=== PATIENT | female | born 1955 | race Caucasian/White ===

== ENCOUNTER → 2018-03-30 08:10 | Outpatient (CLI) | payer OTHER, SELFPAY ==
[2018-03-30 12:21] LABS: Absolute Neutrophil Count 1.9 X10^3/uL (2.0-7.7); Basophil# 0.05 X10^3/uL; Basophil% 1.1 % (0-1); Eosinophil# 0.37 X10^3/uL; Eosinophils% 8.3 % (0-5); Hematocrit 42.8 % (37-47); Hemoglobin 14.2 g/dl (12.0-15.0); Mean Corp Hgb Conc 33.2 g/gl (32-36); Mean Corpuscular Hgb 30.9 pg (27.0-32.0); Mean Corpuscular Volume 93.2 fL (81-99); Mean Platelet Vol. 10.3 fl (6.2-12.0); Monocyte# 0.49 X10^3/uL; Neutrophil # 1.85 X10^3/uL (2.7-7.7); Neutrophil % 41.4 % (47-70); Platelet Count 201 K/mm3 (150-450); RBC Distribution Width CV 12.8 % (11.6-14.6); Red Blood Count 4.59 M/mm3 (4.2-5.4); White Blood Count 4.5 K/mm3 (4.4-11.0)
[2018-03-30 12:22] LABS: POSITIVE COUNT NO; POSITIVE DIFFERENTIAL NO; POSITIVE MORPHOLOGY NO
[2018-03-30 12:47] LABS: Hemoglobin A1c 6.1 % (4.2-6.3)
[2018-03-30 13:07] LABS: ALB/GLOB Ratio 1.2 RATIO (0.9-2.4); AST(SGOT) 19 U/L (15-37); Alanine Aminotransfer ALT/SGPT 22 U/L (13-56); Albumin, Serum 3.9 g/dL (3.2-5.0); Alkaline Phosphatase 70 U/L (45-117); Anion Gap 8 (5-15); BUN 12 mg/dL (7-18); BUN/Creat Ratio 17.9 RATIO (10-20); Calcium,Total 8.8 mg/dL (8.5-10.1); Chloride 103 mmol/L (98-107); Cholesterol 187 mg/dL (200); Creatinine, Serum 0.67 mg/dL (0.55-1.02); EST Glomerular Filtration Rate 95 mL/min (>60); Est Glom Filt Rate - Afr Amer 114 mL/min (>60); Globulin 3.3 g/dL (2.2-4.2); Glucose 105 mg/dL (74-106); High Density Lipoprotein 62 mg/dL; Potassium 4.3 mmol/L (3.5-5.1); Protein, Total 7.2 g/dL (6.4-8.2); Sodium Level 137 mmol/L (136-145); Thyroid Stim Hormone (TSH) 1.55 uIU/mL (0.358-3.74); Triglycerides 116 mg/dL; Very Low Density Lipoprotein 23 mg/dL (5-40)
[2018-03-30 13:28] LABS: Microalbumin,Random Urine 5.3 mg/L (NO RANGE EST.); Microalbumin:Creatinine Ratio 11.1 mg/g CRE (<30 mg/g CRE)
== END ==
PROVIDERS: Family Provider Family Medicine; PCP Family Medicine; Visit Provider Family Medicine
DX: E11.9 Type 2 diabetes mellitus without complications (principal); I10 Essential (primary) hypertension; E87.6 Hypokalemia; R53.83 Other fatigue
CPT/HCPCS: 36415; 80053; 80061; 82043; 82570; 83036; 84443; 85025

== ENCOUNTER → 2019-01-11 11:45 | Outpatient (CLI) | payer OTHER, SELFPAY ==
[2017-11-17 14:00] VITALS: BMI 28.3
--- NOTE | 2019-01-11 11:52 | RAD_ITS ---
STUDY: X-RAY - RIGHT KNEE REASON FOR EXAM: Female, 63 years old. Right lateral knee pain. TECHNIQUE: 4 view(s) of the knee. COMPARISON: None. FINDINGS: Normal visualized distal femur. Normal visualized proximal tibia and fibula. Normal proximal tibiofibular articulation. There is no demonstrated fracture. There is moderate degenerative arthrosis of the medial femorotibial compartment with moderate joint space narrowing. There is severe degenerative arthrosis of the lateral femorotibial compartment with severe joint space narrowing. There is moderate degenerative arthrosis of the patellofemoral articulation. There is no demonstrated joint effusion. The soft tissue structures are unremarkable. RAD/Knee 4 or More Views IMPRESSION: Degenerative arthrosis. Electronically Signed: Ovidio Can MD at 9:16 EDT Tel , Service support ,
== END ==
PROVIDERS: Family Provider Family Medicine; PCP Family Medicine; Referring Provider Family Medicine; Visit Provider Family Medicine
DX: M17.11 Unilateral primary osteoarthritis, right knee (principal)
CPT/HCPCS: 73564

== ENCOUNTER → 2019-02-09 | Outpatient (CLI) | payer OTHER, SELFPAY ==
[2017-11-17 14:00] VITALS: BMI 28.3
--- NOTE | 2019-02-09 08:08 | BI_ITS ---
MAMMOGRAPHY - BILATERAL SCREENING REASON FOR EXAM: Female, 63 years old. Routine annual screening examination. PERTINENT HISTORY: Mother with breast cancer. TECHNIQUE: Digital bilateral breast kelsey (3D mammographic acquisition) in the CC and MLO projections. 2-D mediolateral oblique (MLO) and craniocaudad (CC) views of both breasts were obtained. CAD: Full Field Digital Mammography with Computer Added Detection was performed. COMPARISON: Comparison is made with prior study of September 14, 2017 and August 14, 2016. FINDINGS: Breast Composition: There are scattered areas of fibroglandular density. There are no dominant masses or suspicious calcifications. No other significant abnormalities are identified. There has been no significant change since the prior study. BI/SCREEN MAMM (CAD) W/KELSEY BILAT IMPRESSION: Stable bilateral screening mammogram. Yearly follow-up mammogram recommended. (A) ASSESSMENT CATEGORY: BIRADS Category 1: Negative. A letter regarding these results will be sent to the patient by the facility within 30 days. Approximately 10% of breast cancers are not detected by mammography. A normal mammogram should not delay biopsy of a clinically suspicious abnormality. [id number] Electronically Signed: Shahriar Dutta, at 9:37 EDT , Service support ,
== END | disposition home or self-care (01) ==
LOC: OPBI 08:07
PROVIDERS: Family Provider Family Medicine; PCP Family Medicine; Referring Provider Nurse Practitioner Women's Health; Visit Provider Nurse Practitioner Women's Health
DX: Z12.31 Encounter for screening mammogram for malignant neoplasm of breast (principal)
CPT/HCPCS: 77063; 77067

== ENCOUNTER → 2019-02-10 | Outpatient (CLI) | payer OTHER, SELFPAY ==
[2017-11-17 14:00] VITALS: BMI 28.3
[2019-02-10 12:49] LABS: Absolute Lymphocyte Count 1.53 X10^3/ul (0.83-4.51); Absolute Neutrophil Count 1.7 X10^3/uL (2.0-7.7); Basophil# 0.04 X10^3/uL; Eosinophil# 0.19 X10^3/uL; Eosinophils% 4.9 % (0-5); Hematocrit 42.2 % (37-47); Hemoglobin 13.8 g/dl (12.0-15.0); Lymphocyte # 1.53 X10^3/ul (4.0); Lymphocyte % 39.6 % (19-41); Mean Corp Hgb Conc 32.7 g/gl (32-36); Mean Corpuscular Hgb 30.8 pg (27.0-32.0); Mean Corpuscular Volume 94.2 fL (81-99); Mean Platelet Vol. 10.1 fl (6.2-12.0); Monocyte# 0.45 X10^3/uL; Monocyte% 11.7 % (0-10); Neutrophil # 1.65 X10^3/uL (2.7-7.7); Neutrophil % 42.8 % (47-70); Platelet Count 213 K/mm3 (150-450); RBC Distribution Width SD 44.9 fl (35.1-43.9); Red Blood Count 4.48 M/mm3 (4.2-5.4); White Blood Count 3.9 K/mm3 (4.4-11.0)
[2019-02-10 13:01] LABS: Microalbumin,Random Urine < 5.0 mg/L (NO RANGE EST.)
[2019-02-10 13:05] LABS: Hemoglobin A1c 6.2 % (4.2-6.3)
[2019-02-10 13:11] LABS: POSITIVE COUNT NO; POSITIVE DIFFERENTIAL NO; POSITIVE MORPHOLOGY NO
[2019-02-10 13:14] LABS: ALB/GLOB Ratio 1.3 RATIO (0.9-2.4); AST(SGOT) 21 U/L (15-37); Alanine Aminotransfer ALT/SGPT 22 U/L (13-56); Albumin, Serum 4.3 g/dL (3.2-5.0); Alkaline Phosphatase 73 U/L (45-117); Anion Gap 4 (5-15); BUN 17 mg/dL (7-18); BUN/Creat Ratio 25.7 RATIO (10-20); Calcium,Total 9.1 mg/dL (8.5-10.1); Chloride 103 mmol/L (98-107); Cholesterol 211 mg/dL (200); Creatinine, Serum 0.66 mg/dL (0.55-1.02); EST Glomerular Filtration Rate 96 mL/min (>60); Est Glom Filt Rate - Afr Amer 116 mL/min (>60); Globulin 3.2 g/dL (2.2-4.2); Glucose 109 mg/dL (74-106); High Density Lipoprotein 64 mg/dL; Potassium 4.3 mmol/L (3.5-5.1); Protein, Total 7.5 g/dL (6.4-8.2); Sodium Level 136 mmol/L (136-145); Thyroid Stim Hormone (TSH) 1.78 uIU/mL (0.358-3.74); Triglycerides 67 mg/dL; Very Low Density Lipoprotein 13 mg/dL (5-40)
== END | disposition home or self-care (01) ==
LOC: LAB.FUTURE 08:06
PROVIDERS: Family Provider Family Medicine; PCP Family Medicine; Visit Provider Family Medicine
DX: Z01.818 Encounter for other preprocedural examination (principal); I10 Essential (primary) hypertension; E11.9 Type 2 diabetes mellitus without complications; R53.83 Other fatigue
CPT/HCPCS: 36415; 80053; 80061; 82043; 82570; 83036; 84443; 85025

== ENCOUNTER 2019-05-24 17:00 | Outpatient (RCR) | payer OTHER, SELFPAY ==
[2017-11-17 14:00] VITALS: BMI 28.3
--- NOTE | 2019-03-27 07:06 | HP.PTEVAL ---
Patient's Visit Information URIEL LEES is a 63 year old F referred to Physical Therapy by RUBÉN [place] with a diagnosis of R TKA. Date of Evaluation: 03/24/19 Physical Therapist: Anuj Yang DPT - Visit Plan Frequency: 3x /Week Duration: 4-6 Weeks Plan: Start with ROM, quad/HS/glute med activation, low load long duration streching. Progress wt. bearing and proprioception of R knee once toelrated. May use vaso and ice for edema/pain control. - Subjective Findings: Pt. is here today for her initial evaluation after R TKA. Pt. had surgery on 03/21/19. Pt. arrives today with TEDs on walking with walker. Pt. reports 4/10 pain currently. No calf pain, no fever, no chills. 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 Pt. has been doing her exercises at home and taking medications as indicated. Pt. denies N/T. Pt. is hopeful to get back to all recreational and work activties without limitations. - Pain L knee Pain Intensity (Out of 10): 4 Pain Intensity Range: 2, 6 - Objective POSTURE: Pt. uses FWW in stance, with L wt. shift. Pt. is able to bear full wt. on her RLE. PALPATION: negative homans, sign, no redness, no pain. Pt. has no signs of infection, has aquacel intact. NEURO: normal throughout. ROM: R knee- 0-8-89deg. Pt. has pain at both end ranges. Pt. has normal hip ROM. MMT: RLE- ankle 5/5; knee- ext 3/5, flexion 4/5; hip- flexion 3-/5, abd 3/5, ext 3/5. GAIT: Pt. is able to ambualte with FWW, decreased L step length, decreased R knee ext during stance phase and decrased knee flexion during swing phase. STAIRS: 1 step negotiation with 2 HR. - Goals Goal 1:: Pt. to be I with HEP. Goal Time Frame: 4-6 Weeks Goal 2:: Pt. to have increased ROM of R knee to 0-0-120deg. Goal Time Frame: 4-6 Weeks Goal 3:: Pt. to ambulate with normal pattern without AD. Goal Time Frame: 4-6 Weeks Goal 4:: Pt. to sleep throughtout the night with 0-1/10 pain in R knee. Goal Time Frame: 4-6 Weeks Goal 5:: Pt. to negotiate 1 flight of steps with recirpocal pattern with 1 HR without icnrease in symptoms. Goal Time Frame: 4-6 Weeks - Rehabilitation Potential Physical Therapy Diagnosis: Pt. has signs and symptoms consistent wtih a R TKA. Pt. has subsequent hypomobility, weakness and difficulty with walking. Rehabilitation Potential: Excellent - Anticipated Interventions Patient/Client Instruction: Educate patient on: Condition, Plan of Care, Risk Factors, Benefits of Fitness Program For the Purpose of:: To improve safety, To improve health and function, To foster healthy habits, To improve decision making, To facilitate caregiver knowledge, To improve self management, To prevent re-injury, To improve ability to perform tasks related to life management, To improve tolerance to ADL's Therapeutic Exercise to Include: Strength training, Power training, Endurance training, Balance training, Coordination, Body mechanics, Postural training, Gait and locomotor training, Passive ROM, Active ROM, Dynamic Lumbar Stabilization For the Purpose of:: To decrease pain, To decrease swelling/inflammation, To increase ROM, To improve nutrient delivery to tissue, To increase oxygenation perfusion, To improve muscle performance and motor function, To improve gait and locomotor functions, To improve health of tissue, To decrease soft tissue restriction, To increase flexibility/ROM, To improve endurance, To improve balance, To improve safety with gait IF ES: Yes Cryotherapy (ice pack, ice massage): Yes Vasopneumatic device: Yes For the Purpose of:: To decrease pain, To decrease swelling/inflammation, To increase ROM Thank you for the opportunity to evaluate your patient. For Medicare and Medicare HMO plans, please review the plan of care and approve it. It will need to be FAXED BACK to us at [phone] for Medicare purposes. For Medicare only, by signing this I certify the plan of care. Please let me know if there are questions or concerns regarding this plan of care. Physician Signature: Date:
--- NOTE | 2019-05-16 16:58 | HP.PTREVAL ---
Rafael Kan PA-C, It has been my pleasure to treat URIEL LEES over the last 19 visits for R TKA. Please see the progress note below for an update on the physical therapy plan of care! Subjective: Pt. reports I was doing really well, until yesterday when I slipped on the steps and hyper extended my knee a bit. Pt. reports its not terrible, but definatly more sore than I was. Pt. reports being able to walk with minimal pain, but does still walk with slight knee ext. Objective/Function: Pt. has improved ROM- AAROM 0-3-118deg, PROM 0-0-122deg. MMT: RLE- ankle 5/5 throughout; knee- ext 4+/5, flexion 4+/5; hip- flexion 5-/5, abd 4+/5 ext 4/5. GAIT: Pt. tends to ambulate with slight lack in TKE, but has improved knee flexion dring gait. Pt. has improve stabiliy with stair negotation. Pt. is able to compete with reciprocal pattern, with use of 1 HR. Plan Plan: Pt. was previously doing better, but missed judged a step and slightly hyper extended her knee. Pt. is doing okay, minimal edema of note and is walking on her LE okay. I would like to continue to monitor her symptoms in order to make sure they calm back down allowing to return to full independent mobility. pt. is progressing with her ROM, but needs to work on final bit of motion still. Goals Goal 1:: Pt. to be I with HEP. Goal Time Frame: 4-6 Weeks Goal 2:: Pt. to have increased ROM of R knee to 0-0-120deg. Goal Time Frame: 4-6 Weeks Goal Progress: Progressing Goal 3:: Pt. to ambulate with normal pattern without AD. Goal Time Frame: 4-6 Weeks Goal Progress: Progressing Goal 4:: Pt. to sleep throughtout the night with 0-1/10 pain in R knee. Goal Time Frame: 4-6 Weeks Goal Progress: Goal Met Goal 5:: Pt. to negotiate 1 flight of steps with recirpocal pattern with 1 HR without icnrease in symptoms. Goal Time Frame: 4-6 Weeks Goal Progress: Progressing Anticipated Interventions Patient/Client Instruction: Educate patient on: Condition, Plan of Care, Risk Factors, Benefits of Fitness Program For the Purpose of:: To improve safety, To improve health and function, To foster healthy habits, To improve decision making, To facilitate caregiver knowledge, To improve self management, To prevent re-injury, To improve ability to perform tasks related to life management, To improve tolerance to ADL's Therapeutic Exercise to Include: Strength training, Power training, Endurance training, Balance training, Coordination, Body mechanics, Postural training, Gait and locomotor training, Passive ROM, Active ROM, Dynamic Lumbar Stabilization For the Purpose of:: To decrease pain, To decrease swelling/inflammation, To increase ROM, To improve nutrient delivery to tissue, To increase oxygenation perfusion, To improve muscle performance and motor function, To improve gait and locomotor functions, To improve health of tissue, To decrease soft tissue restriction, To increase flexibility/ROM, To improve endurance, To improve balance, To improve safety with gait IF ES: Yes Cryotherapy (ice pack, ice massage): Yes Vasopneumatic device: Yes For the Purpose of:: To decrease pain, To decrease swelling/inflammation, To increase ROM Please do not hesitate to contact me at [phone] by phone or if you have questions or concerns regarding this new plan of care! Sincerely, Anuj Yang DPT
== END 2019-05-24 19:00 | disposition home or self-care (01) ==
LOC: PT 17:00
PROVIDERS: Family Provider Family Medicine; PCP Family Medicine; Referring Provider Physician Assistant Surgical; Visit Provider Physician Assistant Surgical
DX: Z96.651 Presence of right artificial knee joint (principal); Z47.1 Aftercare following joint replacement surgery
CPT/HCPCS: 97016; 97110; 97140; 97161; 97530

== ENCOUNTER → 2019-08-28 | Outpatient (CLI) | payer OTHER, SELFPAY ==
[2017-11-17 14:00] VITALS: BMI 28.3
[2019-08-28 12:51] LABS: Absolute Lymphocyte Count 1.48 X10^3/uL (0.83-4.51); Absolute Neutrophil Count 2.1 X10^3/uL (2.0-7.7); Basophil# 0.05 X10^3/uL; Basophil% 1.1 % (0-1); Eosinophil# 0.19 X10^3/uL; Eosinophils% 4.3 % (0-5); Hematocrit 39.2 % (37-47); Hemoglobin 12.6 g/dL (12.0-15.0); Lymphocyte # 1.48 X10^3/ul (4.0); Lymphocyte % 33.7 % (19-41); Mean Corp Hgb Conc 32.1 g/dL (32-36); Mean Corpuscular Hgb 30.1 pg (27.0-32.0); Mean Corpuscular Volume 93.6 fL (81-99); Mean Platelet Vol. 10.1 fl (6.2-12.0); Monocyte# 0.52 X10^3/uL; Monocyte% 11.8 % (0-10); NRBC Flagged by Analyzer 0 % (0-5); Neutrophil # 2.14 X10^3/uL (2.7-7.7); Neutrophil % 48.9 % (47-70); Platelet Count 207 K/mm3 (150-450); RBC Distribution Width CV 13.1 % (11.6-14.6); RBC Distribution Width SD 44.8 fl (35.1-43.9); Red Blood Count 4.19 M/mm3 (4.2-5.4); White Blood Count 4.4 K/mm3 (4.4-11.0)
[2019-08-28 13:20] LABS: ALB/GLOB Ratio 1.2 RATIO (0.9-2.4); AST(SGOT) 18 U/L (15-37); Alanine Aminotransfer ALT/SGPT 25 U/L (13-56); Alkaline Phosphatase 87 U/L (45-117); Anion Gap 6 (5-15); BUN 13 mg/dL (7-18); Calcium,Total 9.4 mg/dL (8.5-10.1); Chloride 104 mmol/L (98-107); Cholesterol 194 mg/dL (200); Creatinine, Serum 0.65 mg/dL (0.55-1.02); EST Glomerular Filtration Rate 98 mL/min (>60); Est Glom Filt Rate - Afr Amer 118 mL/min (>60); Globulin 3.3 g/dL (2.2-4.2); Glucose 117 mg/dL (74-106); High Density Lipoprotein 59 mg/dL; Protein, Total 7.3 g/dL (6.4-8.2); Sodium Level 138 mmol/L (136-145); Triglycerides 83 mg/dL; Very Low Density Lipoprotein 17 mg/dL (5-40)
== END | disposition home or self-care (01) ==
LOC: LAB.FUTURE 08:10
PROVIDERS: Family Provider Family Medicine; PCP Family Medicine; Visit Provider Family Medicine
DX: E11.9 Type 2 diabetes mellitus without complications (principal); I10 Essential (primary) hypertension; E87.6 Hypokalemia; E78.5 Hyperlipidemia, unspecified; Z51.81 Encounter for therapeutic drug level monitoring
CPT/HCPCS: 36415; 80053; 80061; 83036; 85025

== ENCOUNTER → 2019-09-18 12:53 | Outpatient (CLI) | payer OTHER, SELFPAY ==
[2019-08-29 13:24] VITALS: BMI 28.3
--- NOTE | 2019-09-18 12:56 | STEWCON_ITS ---
Reason For Study: CHEST PAIN/EKG CHANGES/PRE OP Stress Results Protocol: Sunil Protocol WITH DEFINITY Maximum Predicted HR: 156 bpm Target HR: 133 bpm % Maximum Predicted HR: 89 % DurationHeart Rate Stage (mm:ss) (bpm) BP Comment BASELINE 93 150/842 CC DEFINITY STAGE 1 3:00 125 150/84DENIES KNEE DISCOMFORT. NO SOB,NO CHEST PAIN STAGE 2 3:00 139 170/80 STAGE 3 0:47 139 / RECOVERY 90 146/861 CC DEFINITY Stress Duration: 6:47 mm:ss Maximum Stress HR: 139 bpm Baseline Echocardiogram Findings Stress Echo Wall motion Data Resting WM Intermediate WM Stress WM Interpretation Summary Exercise stress echo performed with and without Definity. Indication 64-year-old lady with a history of chest discomfort for preoperative knee surgery. Stress protocol: Resting EKG demonstrates normal sinus rhythm with a rate of 92 bpm normal intervals are noted resting blood pressures 150/84 mmHg. The patient exercised according to regular Sunil protocol for a total duration of 6 minutes and 47 seconds. The maximum heart rate attained was 150 bpm which was 96% maximum predicted heart rate the maximum workload was 8.4 metabolic equivalents. The patient maintained sinus rhythm throughout the recording. At rest there were no ST or T wave changes noted suggest ischemia peak exercise nonspecific ST-T wave changes were noted with no meet criteria for ischemia. The resting blood pressure was 150/84 with a peak blood pressure 170/80 rate-pressure product was 23,600. The test was terminated due to leg fatigue and target heart rate being achieved. Stress echocardiographic images. Stress echocardiographic images were obtained with and without Definity enhancement. There was thickening of all sullivan noted at rest with a baseline ejection fraction of 55%. The peak ejection fraction was noted to be 65% with thickening of all sullivan and no wall motion abnormalities present. Conclusion: Normal exercise stress echo with no evidence of ischemia at a moderate workload. Preserved ejection fraction. Good functional capacity Ordering Physician: Tess Morataya Referring Physician: Tess Mroataya Performed By: Michael Jackson RCS
== END ==
PROVIDERS: Family Provider Family Medicine; PCP Family Medicine; Referring Provider Family Medicine; Visit Provider Family Medicine
DX: R94.31 Abnormal electrocardiogram [ECG] [EKG] (principal); R07.9 Chest pain, unspecified
CPT/HCPCS: 93017; 93350; Q9957; A4216; C8928

== ENCOUNTER 2019-11-30 13:30 | Outpatient (RCR) | payer OTHER, SELFPAY ==
[2019-08-29 13:24] VITALS: BMI 28.3
--- NOTE | 2019-10-27 10:28 | HP.PTEVAL_ITS ---
Patient's Visit Information URIEL LEES is a 64 year old F referred to Physical Therapy by Harinder Lam MD with a diagnosis of L TKA. Date of Evaluation: 10/27/19 Physical Therapist: Anuj Yang DPT - Visit Plan Frequency: 2x /Week Duration: 4-6 Weeks Plan: Work on ROM end range extension and flexion progressing to 120deg. May add in strengthening as able. Cont. to be partial WBing for another 10 days, then progress to WBing as tolerated (as physician dictates). - Subjective Findings: Pt. is here today for her initial evaluation with diagnosis of L total knee arthroplasty. Pt. did have a tibial fx during surgery with subsequent pinning. DOS: patient did not remember date and not on script. Pt. reports physican follow up on 11/06/18, which is presumed to be 6 weeks post OP. Pt. is to be 50% WBing for 4 weeks with the goal of being full WBing by 6 weekls post op visit. Pt. reports overall doing well. Pt. reports no tibial pain, she does have expected knee soreness/stiffness, but minimal. Pt. is partial WBing using walker. She did have 4 weeks of home health in which she did very well. Pt. is doign her exercises as prescribed. She denies N/T, no calf pain. Pt. denies fever or chills. She is using shower chair without issues. She is no longer taking prescription pain meds, I don't really need them. Pt. is hopeful to increased her ROM and increase gait tolerance in order to get back to all r ecreational activities including walking and water aerobics wihtout limitations. - Pain L knee Pain Intensity (Out of 10): 1 Pain Intensity Range: 0, 4 Tibia Pain Intensity (Out of 10): 0 Pain Intensity Range: 0, 2 - Objective POSTURE: Pt. has good posture in stance. Pt. maintaining WBing well. Pt. reports no pain in stance. Equal hip positioning. PALPATION: Pt. has normal healing incision, no signs of infection. Pt. has negative homans sign. NEURO: normal throughout. ROM: L knee AROM- 0-5-98deg. PROM: 0-0-105deg. pt. hs tight HS bilaterally. MMT: RLE: 5/5 throughout. LLE: 5/5 throughout; knee- ext 4/5, flexion 4/5; hip- flexion 4/5, abd 4/5, ext 4/5. GAIT: pt. ambulates with FWW with good patttern with 50% WBing. Pt. reports no increase in symptoms with ambulation. Lacks TKE during stance phase, but does have good flexion during wing phase. STAIRS: step to pattern with use of BHR. - Goals Goal 1:: LTG: Pt. to be I with HEP. Goal Time Frame: 4-6 Weeks Goal 2:: STG: Pt. to sleep throughout the night without increase in symptoms. Goal Time Frame: 2-4 Weeks Goal 3:: STG: Pt. to ambulate with full WBing with least restrictive device upto 300' without increase in symptoms. Goal Time Frame: 2-4 Weeks Goal 4:: LTG: Pt. to ambulate without increase in symptoms wtihout AD, full WBing for unlimited distances. Goal Time Frame: 4-6 Weeks Goal 5:: STG: Pt. to have ROM of atleast 0-0-120deg of L knee Goal Time Frame: 2-4 Weeks Goal 6:: LTG: Pt. to have increased LLE strength to atleast 4+/5 throughout. Goal Time Frame: 4-6 Weeks - Rehabilitation Potential Physical Therapy Diagnosis: Pt. has signs and symptoms consistent with L TKA. Pt. has subsequent hyppomobility, pain, difficulty walking and weakness. Pt. would benefit from PT to work on the above limitations progressing back to all ADLs and recreational activities without limitations. - Anticipated Interventions Patient/Client Instruction: Educate patient on: Condition, Plan of Care, Risk Factors, Benefits of Fitness Program For the Purpose of:: To improve decision making, To facilitate caregiver knowledge, To improve self management, To prevent re-injury, To improve ability to perform tasks related to life management, To improve tolerance to ADL's Therapeutic Exercise to Include: Strength training, Power training, Endurance training, Body mechanics, Postural training, Flexibilty training, Gait and locomotor training, Passive ROM, Active ROM For the Purpose of:: To decrease pain, To decrease swelling/inflammation, To increase ROM, To improve nutrient delivery to tissue, To increase oxygenation perfusion, To improve muscle performance and motor function, To improve health of tissue, To decrease soft tissue restriction, To increase flexibility/ROM IF ES: Yes Cryotherapy (ice pack, ice massage): Yes Vasopneumatic device: Yes For the Purpose of:: To decrease pain, To decrease swelling/inflammation, To increase ROM, To improve nutrient delivery to tissue, To increase oxygenation perfusion, To improve muscle performance and motor function Thank you for the opportunity to evaluate your patient. For Medicare and Medicare HMO plans, please review the plan of care and approve it. It will need to be FAXED BACK to us at [phone] for Medicare purposes. For Medicare only, by signing this I certify the plan of care. Please let me know if there are questions or concerns regarding this plan of care. Physician Signature:____ Date:
--- NOTE | 2020-04-09 11:17 | HP.PT.NRP ---
URIEL LEES was seen in my office for initial evaluation on 10/27/19. The following Plan of Care was established for this patient: Initial Frequency: 2x /Week Initial Duration: 4-6 Weeks Patient/Client Instruction: Educate patient on: Condition, Plan of Care, Risk Factors, Benefits of Fitness Program For the Purpose of:: To improve decision making, To facilitate caregiver knowledge, To improve self management, To prevent re-injury, To improve ability to perform tasks related to life management, To improve tolerance to ADL's Therapeutic Exercise to Include: Strength training, Power training, Endurance training, Body mechanics, Postural training, Flexibilty training, Gait and locomotor training, Passive ROM, Active ROM For the Purpose of:: To decrease pain, To decrease swelling/inflammation, To increase ROM, To improve nutrient delivery to tissue, To increase oxygenation perfusion, To improve muscle performance and motor function, To improve health of tissue, To decrease soft tissue restriction, To increase flexibility/ROM IF ES: Yes Cryotherapy (ice pack, ice massage): Yes Vasopneumatic device: Yes For the Purpose of:: To decrease pain, To decrease swelling/inflammation, To increase ROM, To improve nutrient delivery to tissue, To increase oxygenation perfusion, To improve muscle performance and motor function This patient was last seen in our office 11/30/19. Pertinent comments regarding their Physical therapy will appear below: Pt. was seen for her TKA. Pt. did very well. Pt. is doing exercises on her own and has not been seen in several months. Pt. will be DC from PT at this point in time. At this point I will be discontinuing this patient from physical therapy. I would be happy to see this patient again in the future if found appropriate by the physician. Thank you! Anuj Yang, KARIS
== END 2019-11-30 19:00 | disposition home or self-care (01) ==
LOC: PT 13:30
PROVIDERS: Family Provider Family Medicine; PCP Family Medicine; Referring Provider Specialist; Visit Provider Specialist
DX: M17.12 Unilateral primary osteoarthritis, left knee (principal); Z96.652 Presence of left artificial knee joint
CPT/HCPCS: 97110; 97161; 97530

== ENCOUNTER → 2020-05-02 07:46 | Outpatient (CLI) | payer OTHER, SELFPAY ==
[2019-08-29 13:24] VITALS: BMI 28.3
--- NOTE | 2020-05-02 07:46 | BI_ITS ---
MAMMOGRAPHY - BILATERAL SCREENING 3-D TOMOSYNTHESIS REASON FOR EXAM: Female, 64 years old. Routine screening PERTINENT HISTORY: BILAT SCREENING - FAM HX OF MOTHER @ AGE 64 - NO PREV SURG''S - CURRENT ESTRACE SINCE 2017. TECHNIQUE: 2-D mammograms and 3-D Tomosynthesis of the breast (s) were performed. CAD was performed. COMPARISON: 02/09/2019 FINDINGS: The breast composition is composed of scattered fibroglandular density. Scattered benign calcifications are seen. No dense spiculated masses or suspicious microcalcifications are identified. No architectural distortion is identified. There is no skin thickening or retraction. There has been no significant change since the prior study. BI/SCREEN MAMM (CAD) W/KELSEY BILAT IMPRESSION: No mammographic signs of malignancy. Routine yearly mammograms recommended. ASSESSMENT CATEGORY: BIRADS Category 1: Negative. A letter regarding these results will be sent to the patient by the facility within 30 days. FOLLOW UP RECOMMENDATION: Yearly follow up mammogram recommended. (A) Approximately 10% of breast cancers are not detected by mammography. A normal mammogram should not delay biopsy of a clinically suspicious abnormality. Electronically Signed: Brian Jane MD at 9:09 EDT , Service support ,
== END ==
PROVIDERS: PCP Family Medicine; Referring Provider Nurse Practitioner Women's Health; Visit Provider Nurse Practitioner Women's Health
DX: Z12.31 Encounter for screening mammogram for malignant neoplasm of breast (principal)
CPT/HCPCS: 77063; 77067

== ENCOUNTER → 2020-09-09 08:15 | Outpatient (CLI) | payer MEDICARE, OTHER, SELFPAY ==
[2019-08-29 13:24] VITALS: BMI 28.3
[2020-09-09 09:39] LABS: Basophil# 0.05 X10^3/uL; Basophil% 1.2 % (0-1); Eosinophil# 0.19 X10^3/uL; Eosinophils% 4.6 % (0-5); Hematocrit 42.6 % (37-47); Hemoglobin 13.9 g/dL (12.0-15.0); Lymphocyte % 33.7 % (19-41); Mean Corp Hgb Conc 32.6 g/dL (32-36); Mean Corpuscular Hgb 30.8 pg (27.0-32.0); Mean Corpuscular Volume 94.5 fL (81-99); Mean Platelet Vol. 9.7 fl (6.2-12.0); Monocyte# 0.48 X10^3/uL; Monocyte% 11.6 % (0-10); NRBC Flagged by Analyzer 0 % (0-5); Neutrophil # 2.02 X10^3/uL (2.7-7.7); Neutrophil % 48.7 % (47-70); Platelet Count 209 K/mm3 (150-450); RBC Distribution Width SD 44.9 fl (35.1-43.9); Red Blood Count 4.51 M/mm3 (4.2-5.4); White Blood Count 4.2 K/mm3 (4.4-11.0)
[2020-09-09 09:53] LABS: ALB/GLOB Ratio 1.2 RATIO (0.9-2.4); AST(SGOT) 16 U/L (15-37); Alanine Aminotransfer ALT/SGPT 21 U/L (13-56); Albumin, Serum 4.2 g/dL (3.2-5.0); Alkaline Phosphatase 102 U/L (45-117); Anion Gap 4 (5-15); BUN 15 mg/dL (7-18); BUN/Creat Ratio 21.2 RATIO (10-20); Calcium,Total 9.2 mg/dL (8.5-10.1); Chloride 105 mmol/L (98-107); Cholesterol 211 mg/dL (200); Creatinine, Serum 0.71 mg/dL (0.55-1.02); EST Glomerular Filtration Rate 88 mL/min (>60); Est Glom Filt Rate - Afr Amer 107 mL/min (>60); Globulin 3.4 g/dL (2.2-4.2); Glucose 133 mg/dL (74-106); High Density Lipoprotein 74 mg/dL; Potassium 4.1 mmol/L (3.5-5.1); Protein, Total 7.6 g/dL (6.4-8.2); Sodium Level 139 mmol/L (136-145); Triglycerides 85 mg/dL; Very Low Density Lipoprotein 17 mg/dL (5-40)
== END ==
PROVIDERS: PCP Family Medicine; Referring Provider Family Medicine; Visit Provider Family Medicine
DX: E11.9 Type 2 diabetes mellitus without complications (principal); I10 Essential (primary) hypertension; E87.6 Hypokalemia; E78.5 Hyperlipidemia, unspecified; Z51.81 Encounter for therapeutic drug level monitoring
CPT/HCPCS: 36415; 80053; 80061; 83036; 85025

== ENCOUNTER → 2021-05-22 07:36 | Outpatient (CLI) | payer MEDICARE, OTHER, SELFPAY ==
[2019-08-29 13:24] VITALS: BMI 28.3
--- NOTE | 2021-05-22 07:45 | BI_ITS ---
MAMMOGRAPHY - BILATERAL SCREENING REASON FOR EXAM: Female, 65 years old. Routine annual screening examination. PERTINENT HISTORY: Mother with breast cancer. TECHNIQUE: Digital bilateral breast kelsey (3D mammographic acquisition) in the CC and MLO projections. 2-D mediolateral oblique (MLO) and craniocaudad (CC) views of both breasts were obtained. CAD: Full Field Digital Mammography with Computer Added Detection was performed. COMPARISON: Comparison is made with prior examination 05/02/2020 and 02/09/2019. FINDINGS: Breast Composition: There are scattered areas of fibroglandular density. There are no dominant masses or suspicious calcifications. No other significant abnormalities are identified. There has been no significant change since the prior study. BI/SCRN MAMM (CAD)W/KELSEY BILAT IMPRESSION: Stable bilateral screening mammogram. Yearly follow-up mammogram recommended. (A) ASSESSMENT CATEGORY: BIRADS Category 1: Negative. A letter regarding these results will be sent to the patient by the facility within 30 days. Approximately 10% of breast cancers are not detected by mammography. A normal mammogram should not delay biopsy of a clinically suspicious abnormality. [id number] Electronically Signed: Shahriar Dutta MD at 8:47 EDT , Service support ,
== END ==
PROVIDERS: PCP Family Medicine; Referring Provider Nurse Practitioner Women's Health; Visit Provider Nurse Practitioner Women's Health
DX: Z12.31 Encounter for screening mammogram for malignant neoplasm of breast (principal)
CPT/HCPCS: 77063; 77067

== ENCOUNTER 2021-09-15 06:04 | Day surgery (SDC) | payer MEDICARE, OTHER, SELFPAY ==
[2021-09-15] VITALS (7 sets, daily range): BP systolic 140–169; BP diastolic 78–91; PULSE 63–75; RESP 16; TEMP 36.1–36.4; O2SAT 96–98; BMI 28.3
[2021-09-15 06:35] LABS: Bedside Glucose 119 mg/dL (70-110)
[2021-09-15] MEDS: Lactated Ringers 1,000 ML 15 ML IV (06:48)
--- NOTE | 2021-09-15 07:11 | H&P.OPEN ---
HPI - General HPI Narrative URIEL LEES, is a 66 F who presents for screening colonoscopy. Patient states she had one about 10 years ago that was negative. Patient denies any family history of colon cancer. Patient has bowel movements daily denies any blood. Patient denies any chronic abdominal pain/nausea/vomiting/reflux. FORMERLY [facility] Medical History (Updated 09/15/21 @ 07:[address] Karla Saba MD) Alcohol use Arthritis Diabetes History of echocardiogram Hypertension PONV (postoperative nausea and vomiting) Wears glasses Home Medications aspirin 81 mg PO DAILY@0800 04/18/17 [History Last Taken 09/09/21] losartan 25 mg PO DAILY 04/18/17 [History Last Taken 09/15/21] metformin 500 mg PO BIDCM 04/18/17 [History Last Taken Unknown] zolpidem 12.5 mg tablet,extended release,multiphase 12.5 mg PO HS PRN 11/17/17 [History Last Taken Unknown] estradiol See Rx Instructions .ROUTE .COMPLEX 07/16/21 [History Last Taken Unknown] Allergy/AdvReac Type Severity Reaction Status Date / Time prednisone Allergy Other Verified 09/10/21 11:27 codeine AdvReac Vomiting Verified 09/10/21 11:27 Family History Mother Breast cancer Father Bladder cancer metastasized to liver Bladder cancer Prostate cancer Surgical History (Updated 09/15/21 @ 07:[address] Karla Saba MD) H/O: hysterectomy History of bladder surgery History of Status post total right knee replacement Social History (Updated 07/16/21 @ 08:30 by Eliana Reeves) current occupational status: retired Smoking Status: Never smoker alcohol intake: current alcohol intake frequency: a few times a week Alcohol type: wine substance use type: does not use caffeine: Yes what type of physical activity do you participate in: aerobics frequency: 3-4 times per week seatbelt use: always do you feel safe at home: Yes additional social history: -Gurjit- GMI Past Medical/Surgical History Planned Operation Planned Operative Procedure/s: Colonoscopy, EGD Previous Hospitalizations/Surgeries HX Hospitalizations: No Any Problems With Anesthesia: No You/Your Family Experience Fever (Hyperthermia) With Anes: No Cholinesterase deficiency: No Cardiovascular Hx of Irregular Heartbeat and/or Afib: No Hx Heart Attack: No Hx Congestive Heart Failure: No Hx Rheumatic Fever: No Hx Hypertension: Yes Hx Internal Defibrillator: No Hx Pacemaker: No Hx Pain in Legs when Walking/Leg Cramps: No Respiratory HX of Shortness of Breath: No Hx Chronic Obstructive Pulmonary Disease (COPD): No Hx Asthma: Yes Hx Emphysema: No Hx Sleep Apnea: No Hx Respiratory Tract Infection/Cold (presently): No Do You Snore Loudly (louder than talking or can be heard): No Do You Often Feel Tired/ Fatigued/ Sleepy Dring Daytime?: No Has Anyone Observed You Stop Breathing During Sleep?: No Result (for STOP score): Negative Smoking Status: Never smoker Gastrointestinal Hx Gastroesophageal Reflux: No Hx Gastrointestinal Bleed: No Hx Ulcer: No Neurological Hx Seizures: No Hx Multiple Sclerosis: No Hx Parkinson's Disease: No Hx Head/Neck Injury: No Hx Headaches: No Hx Back Injury/Pain: No Does patient have nerve stimulator: No Blood Disorder Hx Hepatitis: No Hx Anemia: No Reproduction Is Patient Lactating: No Genitourinary Hx Renal Disease: No Musculoskeletal Hx Arthritis: Yes Hx Gout: No Endocrine Hx Diabetes: Yes Thyroid Disease: No Psycho/Social Hx Anxiety: No Hx Depression: Yes Hx Dementia: No Miscellaneous Hx Cancer: No Recent Exposure to Contagious Disease: No Allergies prednisone Allergy (Verified 09/10/21 11:27) Other codeine Adverse Reaction (Verified 09/10/21 11:27) Vomiting Discharge Is Pt Admitted From a Jail, or a Jail: No Who Could Help: After D/C, Where Do you Plan to Go: Return Home From the [facility] History Number of Risk Factors: 3 Vital Signs Vital Signs Vital Signs: 09/15/21 06:44 09/15/21 06:49 Temperature 96.9 F L Temperature Source Temporal Pulse Rate 75 Respiratory Rate 16 Respiratory Pattern Normal Blood Pressure 140/78 H Blood Pressure Mean 98 Blood Pressure Source Monitor Blood Pressure Position Sitting Blood Pressure Location Left Arm Pulse Ox 97 Oxygen Delivery Method Room Air Weight Weight: 149 lb 14.629 oz Body Mass Index (BMI) 28.3 Physical Exam Const alert, oriented x3 and no apparent distress HEENT normocephalic and head/scalp atraumatic Resp normal respiratory effort Cardio regular rate GI soft to palpation and non-tender; Negative for non-distended Palpation: Negative for guarding Extremity no clubbing, cyanosis or edema Neuro CN's II-XII intact bilaterally Psych mental status grossly normal Assessment & Plan Assessment/Plan (1) Screening for colon cancer: Procedure Criteria Type of Procedure Procedure Type: Elective Elective Risks - COVID COVID Risk Discussion: The surgeon/proceduralist and patient have discussed in detail the risk of exposure to and/or potential harm posed by the COVID-19 virus with having a surgery/procedure at this time versus the risk of delaying the surgery/procedure. It is not possible to know either the risk of delaying the surgery or procedure or chance of getting an infection with perfect accuracy, but a joint decision was made between the patient and the surgeon/proceduralist to proceed at this time with the scheduled surgery/procedure as indicated on the consent form. Surgery Risks - Colonoscopy Risks Include but are not Limited To: Risks include but are not limited to: Bleeding, perforation requiring further surgery, inability to complete colonoscopy requiring barium enema. Patient no further question at this time.
--- NOTE | 2021-09-15 08:01 | OP.COLON_ITS ---
Patient Name: Samanta Julian Procedure Date: 09/15/2021 7:28 AM Date of : 1955 Age: 66 Procedure: Colonoscopy Indications: Screening for colorectal malignant neoplasm Providers: Karla Saba MD Medicines: Monitored Anesthesia Care Patient Profile: This is a 66 year old female. Last Colonoscopy: 10 years ago. Complications: No immediate complications. Procedure: Pre-Anesthesia Assessment: - Prior to the procedure, a History and Physical was performed, and patient medications and allergies were reviewed. The patient's tolerance of previous anesthesia was also reviewed. The risks and benefits of the procedure and the sedation options and risks were discussed with the patient. All questions were answered, and informed consent was obtained. Prior Anticoagulants: The patient has taken aspirin, last dose was 5 days prior to procedure. ASA Grade Assessment: Per anesthesia. After reviewing the risks and benefits, the patient was deemed in satisfactory condition to undergo the procedure. After I obtained informed consent, the scope was passed under direct vision. Throughout the procedure, the patient's blood pressure, pulse, and oxygen saturations were monitored continuously. The colonoscope was introduced through the anus and advanced to the cecum, identified by the appendiceal orifice, ileocecal valve and palpation. The colonoscopy was somewhat difficult due to a tortuous colon. Successful completion of the procedure was aided by applying abdominal pressure. The patient tolerated the procedure well. The quality of the bowel preparation was good. Scope In: 7:32:14 AM Scope Withdrawal Time 0 hours 8 minutes 50 seconds Scope Out: 7:56:03 AM Total Procedure Duration Time 0 hours 23 minutes 49 seconds Findings: The perianal and digital rectal examinations were normal. The entire examined colon appeared normal on direct and retroflexion views. Impression: - The entire examined colon is normal on direct and retroflexion views. - No specimens collected. Recommendation: - Discharge patient to home. - Resume previous diet. - Continue present medications. - Repeat colonoscopy in 10 years for screening purposes. Procedure Code(s): --- Professional --- G0121, PT, Colorectal cancer screening; colonoscopy on individual not meeting criteria for high risk Diagnosis Code(s): --- Professional --- Z12.11, Encounter for screening for malignant neoplasm of colon CPT copyright 2017 [employer]. All rights reserved. The codes documented in this report are preliminary and upon dentist/owner review may be revised to meet current compliance requirements. MD Karla Bell MD 09/15/2021 8:00:31 AM This report has been signed electronically. Number of Addenda: 0 Note Initiated On: 09/15/2021 7:28 AM
--- NOTE | 2021-09-15 08:02 | OP.CCLET_ITS ---
09/15/2021 Tess Morataya [address] [place] [address] Re : Colonoscopy procedure for Samanta Pabloond Dear Dr. Morataya This procedure was performed on Wednesday, September 15, 2021. My impressions and recommendations are as follows: Impressions : - The entire examined colon is normal on direct and retroflexion views. - No specimens collected. Recommendations : - Discharge patient to home. - Resume previous diet. - Continue present medications. - Repeat colonoscopy in 10 years for screening purposes. My findings are described in the full procedure note, which is enclosed. If I can be of further assistance, please feel free to contact me at Doctor phone number(s): , Work: . Sincerely, MD Karla Bell MD 09/15/2021 8:00:31 AM This report has been signed electronically.
== END 2021-09-15 08:59 | disposition home or self-care (01) ==
LOC: EN 06:06 → AC 06:06
PROVIDERS: PCP Family Medicine; Referring Provider Family Medicine; Visit Provider Surgery
PROC: 0DJD8ZZ Inspection of Lower Intestinal Tract, Via Natural or Artificial Opening Endoscopic (ICD-10-PCS; CPT 45378; principal; 2021-09-15 07:25)
DX: Z12.11 Encounter for screening for malignant neoplasm of colon (principal); Q43.8 Other specified congenital malformations of intestine; E11.9 Type 2 diabetes mellitus without complications; I10 Essential (primary) hypertension; M19.90 Unspecified osteoarthritis, unspecified site; Z79.82 Long term (current) use of aspirin; Z79.84 Long term (current) use of oral hypoglycemic drugs; Z79.899 Other long term (current) drug therapy
CPT/HCPCS: 45378; 82962; J7120; J2405

== ENCOUNTER 2021-11-15 19:06 | Emergency (ER) | payer MEDICARE, OTHER, SELFPAY ==
[2021-11-15 19:07] VITALS: PULSE 232; RESP 22; TEMP 36.1; O2SAT 100; BMI 29.2
[2021-11-15 19:12] VITALS: BP 154/97; PULSE 103; RESP 18; TEMP 37; O2SAT 97; BMI 29.8
--- NOTE | 2021-11-15 19:18 | EKG12_ITS ---
Test Reason : HR Blood Pressure : / mmHG Vent. Rate : 107 BPM Atrial Rate : 107 BPM P-R Int : 144 ms QRS Dur : 084 ms QT Int : 352 ms P-R-T Axes : 069 004 042 degrees QTc Int : 469 ms Sinus tachycardia Nonspecific ST abnormality Abnormal ECG Confirmed by CONSUELO PEREZ, GINA ([id number]), metropolitan editor ANGELA VELEZ ([id number]) on 11/17/2021 10:22:30 AM Referred By: SHARON Confirmed By:GINA CORDERO MD
--- NOTE | 2021-11-15 19:19 | RAD_ITS ---
STUDY: X-RAY CHEST REASON FOR EXAM: Female, 66 years old. PT STATED DYSPNEA AND IRREGULAR HEART RYTHEM TECHNIQUE: Single AP portable view of the chest. COMPARISON: None. FINDINGS: EKG leads project over the chest. The lungs are clear and expanded. There is no demonstrated pleural abnormality. Normal size heart. Normal mediastinum and keanu. Normal visualized pulmonary arteries. There is atherosclerotic calcification of the aortic arch with tortuosity. Normal visualized thoracic spine. Normal visualized ribs, clavicles, and shoulders. There is no demonstrated abnormality of the visualized soft tissue structures of the upper abdomen. RAD/Chest 1 View (Portable) IMPRESSION: Nonacute portable x-ray examination of the chest. Electronically Signed: James Lara MD (Brooks) at 20:11 EST ,
--- NOTE | 2021-11-15 19:21 | EDS_ITS ---
HPI <RUBÉN Martinez - Last Filed: 11/15/21 20:38> History of Present Illness Chief Complaint: Palpitations Narrative Narrative: 66-year-old female with PMH of HTN, DM2 presents with palpitations. She was leaving mass at around 625 felt her heart racing and chest heaviness. She was mildly short of breath. No nausea, vomiting, diaphoresis. She was found to be in SVT here and converted with vagal maneuvers. She reports a remote history of dysrhythmia but cannot provide details. She does not take blood thinners. She otherwise has been in good health this week with no fever, chills, chest pain, shortness of breath, cough, blood in stool or urinary sy mptoms. PFSH <RUBÉN Martinez - Last Filed: 11/15/21 20:38> PFS Medical History (Updated 11/15/21 @ 20:38 by RUBÉN Martinez) Alcohol use Arthritis Diabetes History of echocardiogram Hypertension PONV (postoperative nausea and vomiting) Wears glasses Home Medications aspirin 81 mg PO DAILY@0800 04/18/17 [History Last Taken 09/09/21] losartan 25 mg PO DAILY 04/18/17 [History Last Taken 09/15/21] metformin 500 mg PO BIDCM 04/18/17 [History Last Taken Unknown] zolpidem 12.5 mg tablet,extended release,multiphase 12.5 mg PO HS PRN 11/17/17 [History Last Taken Unknown] estradiol See Rx Instructions .ROUTE .COMPLEX 07/16/21 [History Last Taken Unknown] Allergy/AdvReac Type Severity Reaction Status Date / Time prednisone Allergy Other Verified 11/15/21 19:07 codeine AdvReac Vomiting Verified 11/15/21 19:07 Family History Mother Breast cancer Father Bladder cancer metastasized to liver Bladder cancer Prostate cancer Surgical History H/O: hysterectomy History of bladder surgery History of Status post total right knee replacement Social History (Updated 07/16/21 @ 08:30 by Eliana Reeves) current occupational status: retired Smoking Status: Never smoker alcohol intake: current alcohol intake frequency: a few times a week Alcohol type: wine substance use type: does not use caffeine: Yes what type of physical activity do you participate in: aerobics frequency: 3-4 times per week seatbelt use: always do you feel safe at home: Yes additional social history: -Gurjit- GMI ROS <RUBÉN Martinez - Last Filed: 11/15/21 20:38> ROS ED ROS Narrative Constitutional: Negative for fever, chills, malaise. Eyes: Negative for visual change. ENT: Negative for sore throat, ear pain, rhinorrhea. CVS: Positive for palpitations, chest pain. Negative for syncope. Respiratory: Negative for shortness of breath, cough, orthopnea. GI: Negative for abdominal pain, nausea, vomiting, diarrhea, constipation, melena, hematochezia. : Negative for dysuria, hematuria or frequency. Neuro: Negative for headache, motor/sensory dysfunction. Skin: Negative for rash, abscess, or wound. Heme: Negative for easy bruising, bleeding, lymphadenopathy. EXAM <RUBÉN Martinez - Last Filed: 11/15/21 20:38> Physical Exam Narrative Exam Narrative: CONST: Patient sitting in no acute distress. EYES: Normal inspection. ENT: Normal inspection, moist mucous membranes. NECK: Normal inspection. RESP: No respiratory distress, CTAB. CVS: Tachycardic with regular rhythm, no murmur, no gallop. ABD: Soft and nontender, no guarding or rebound, nondistended. Back: Normal inspection. SKIN: Color normal, no rash, warm, dry, intact. EXTREMITIES: Normal appearance, no pedal edema, no calf tenderness. 2+ radial and PT pulses. NEURO: Oriented x4. PSYCH: Normal affect. Const Vital Signs: 11/15/21 19:07 11/15/21 19:12 11/15/21 19:18 Temperature 96.9 F L 98.6 F Temperature Source Temporal Temporal Pulse Rate 232 H 103 H Respiratory Rate 22 H 18 Respiratory Effort Normal Non-Labored Respiratory Pattern Normal Blood Pressure 154/97 H Blood Pressure Mean 116 Pulse Ox 100 97 Oxygen Delivery Method Nasal Cannula Room Air Oxygen Flow Rate (L/min) 11/15/21 20:26 11/15/21 20:44 Temperature Temperature Source Pulse Rate 92 Respiratory Rate 18 Respiratory Effort Respiratory Pattern Blood Pressure 148/97 H 143/97 H Blood Pressure Mean 114 Pulse Ox 100 Oxygen Delivery Method Nasal Cannula Oxygen Flow Rate (L/min) 4 <Dr. Moustapha Nichols DO - Last Filed: 11/16/21 00:00> Physical Exam Const Vital Signs: 11/15/21 19:07 11/15/21 19:12 11/15/21 19:18 Temperature 96.9 F L 98.6 F Temperature Source Temporal Temporal Pulse Rate 232 H 103 H Respiratory Rate 22 H 18 Respiratory Effort Normal Non-Labored Respiratory Pattern Normal Blood Pressure 154/97 H Blood Pressure Mean 116 Pulse Ox 100 97 Oxygen Delivery Method Nasal Cannula Room Air Oxygen Flow Rate (L/min) 11/15/21 20:26 11/15/21 20:44 Temperature Temperature Source Pulse Rate 92 Respiratory Rate 18 Respiratory Effort Respiratory Pattern Blood Pressure 148/97 H 143/97 H Blood Pressure Mean 114 Pulse Ox 100 Oxygen Delivery Method Nasal Cannula Oxygen Flow Rate (L/min) 4 MDM <RUBÉN Martinez - Last Filed: 11/15/21 20:38> MDM MDM Narrative Medical decision making narrative: Patient presented after an episode of palpitations and shortness of breath. In triage she was found to be in SVT in the 230s which improved after vagal maneuver and she is now in sinus rhythm in the low 100s. She appears well nontoxic. Other vital signs within normal limits. Heart is rapid but regular, lungs are clear, abdomen soft and nontender, no lower extremity swelling. Screening labs were obtained and are normal. EKG is sinus rhythm and troponin is WNL. Chest x-ray shows no acute process. It is likely patient had an episode of tachyarrhythmia but has been asymptomatic while in the ED and is stable to go home. She needs to follow-up with her PCP for Holter monitor but should return to the ER for any new or worsening symptoms. She was agreeable with this plan and discharged in stable condition. Diagnosis 1. Tachyarrhythmia, resolved Lab Data Labs: Laboratory Results - last 24 hr 11/15/21 11/15/21 19:14 19:14 WBC 8.3 RBC 4.27 Hgb 13.4 Hct 40.3 MCV 94.4 MCH 31.4 MCHC 33.3 RDW Std Deviation 44.8 H RDW Coeff of Aries 13.1 Plt Count 317 MPV 10.1 Immature Gran % (Auto) 0.200 Neut % (Auto) 35.6 L Lymph % (Auto) 48.1 H Hendry % (Auto) 10.2 H Eos % (Auto) 4.8 Baso % (Auto) 1.1 H Absolute Neuts (auto) 3.0 Absolute Lymphs (auto) 4.01 Nucleated RBC % 0 Sodium 137 Potassium 3.5 Chloride 101 Carbon Dioxide 26.0 Anion Gap 10 BUN 15 Creatinine 0.94 Estim Creat Clear Calc 44.42 Est GFR (MDRD) Af Amer 76 Est GFR (MDRD) Non-Af 63 BUN/Creatinine Ratio 15.9 Glucose 213 H Calcium 9.8 Troponin I High Sens 8 Radiography Chest X-Ray - ED: 1 View Diagnostic Testing: Clinical Impression(s) from Imaging Studies Chest X-Ray 11/15/21 19:19 IMPRESSION: Nonacute portable x-ray examination of the chest. Electronically Signed: James Lara MD (Brooks) at 20:11 EST Reading Location ID and State: [facility] / [place] , Service support , ED attending interpretation shows normal heart size, no acute infiltrate, edema, or effusion EKG Initial EKG: Attestation: I personally reviewed and interpreted this EKG as follows: Interpretation: Sinus Rhythm Comments: Sinus tachycardia, normal intervals, no acute ischemia <Dr. Moustapha Nichols, DO - Last Filed: 11/16/21 00:00> [facility] Narrative Medical decision making narrative: Patient was seen with me. I agree with the history and physical examination. Patient is a 66-year-old female presents with palpitations that began today. Patient states she felt like her heart was racing. When she arrived here in the emergency department she was noted to be in SVT with a heart rate of 232. Patient was able to bear down and do vagal maneuvers which resolved her SVT. Currently, the patient denies any symptoms. Vital signs are stable now that she has converted to a normal sinus rhythm. Patient is in no acute distress. Oral mucosa is pink and moist. Neck is supple. Trachea is midline. There is no JVD or lymphadenopathy. Heart was regular rate and rhythm. Lungs are clear and equal bilaterally. Abdomen is soft and nontender. Cranial nerves II through XII are intact. There are no focal motor or sensory deficits noted. EKG was obtained. On my interpretation, there is normal sinus rhythm. There are no acute ST or T wave changes. Portable 1 view chest x-ray was obtained. On my interpretation, lung bean are clear. There is normal cardiac silhouette. Bony thorax is normal. There is no acute process noted. Radiologist also interpreted the x-ray and agrees. CBC, basic metabolic profile, and troponin were obtained and were within normal limits with the exception of an elevated glucose of 213. Patient feels better on reevaluation. Patient was instructed to follow-up with her primary care physician in 5 to 7 days. Patient and spouse understood and were agreeable with the plan. All questions were answered. Lab Data Attestation: I reviewed the patient's lab results. Labs: Laboratory Results - last 24 hr 11/15/21 11/15/21 19:14 19:14 WBC 8.3 RBC 4.27 Hgb 13.4 Hct 40.3 MCV 94.4 MCH 31.4 MCHC 33.3 RDW Std Deviation 44.8 H RDW Coeff of Aries 13.1 Plt Count 317 MPV 10.1 Immature Gran % (Auto) 0.200 Neut % (Auto) 35.6 L Lymph % (Auto) 48.1 H Hendry % (Auto) 10.2 H Eos % (Auto) 4.8 Baso % (Auto) 1.1 H Absolute Neuts (auto) 3.0 Absolute Lymphs (auto) 4.01 Nucleated RBC % 0 Sodium 137 Potassium 3.5 Chloride 101 Carbon Dioxide 26.0 Anion Gap 10 BUN 15 Creatinine 0.94 Estim Creat Clear Calc 44.42 Est GFR (MDRD) Af Amer 76 Est GFR (MDRD) Non-Af 63 BUN/Creatinine Ratio 15.9 Glucose 213 H Calcium 9.8 Troponin I High Sens 8 Radiography Chest X-Ray - ED: 1 View, Read by ED Physician, Read by Radiologist and Normal Diagnostic Testing: Clinical Impression(s) from Imaging Studies Chest X-Ray 11/15/21 19:19 IMPRESSION: Nonacute portable x-ray examination of the chest. Electronically Signed: James Lara MD (Brooks) at 20:11 EST , Discharge Plan Triage Chief Complaint: Palpitations ED Provider: Tess Mixon Dx/Rx/DC Orders Clinical Impression: Supraventricular tachycardia Prescriptions: No Action zolpidem [Ambien CR] 12.5 mg tablet,ext release multiphase 12.5 mg PO HS PRN (Reason: Insomnia) RF: 0 estradiol 0.01 % (0.1 mg/gram) cream See Rx Instructions .ROUTE .COMPLEX RF: 0 metformin 500 MG tablet 500 mg PO BIDCM RF: 0 losartan 25 MG tablet 25 mg PO DAILY RF: 0 aspirin 81 MG tablet,chewable 81 mg PO DAILY@0800 RF: 0 Primary Care Provider: Tess Morataya Referrals: Tess Morataya DO [Primary Care Provider] - Activity Restrictions/Additional Instructions: Today you were seen for a fast heart rate which converted to a normal rhythm while in the ER. Your blood work looks normal. There is no evidence of heart attack. Your chest x-ray looks normal. Please follow-up with your PCP next week as you likely will need a heart monitor. Come back to the ER for new or worsening symptoms. Disposition Disposition: Home, Self Care Discharge Date/Time: 11/15/21 20:49
[2021-11-15 20:15] LABS: Absolute Lymphocyte Count 4.01 X10^3/uL (0.83-4.51); Basophil# 0.09 X10^3/uL; Basophil% 1.1 % (0-1); Eosinophils% 4.8 % (0-5); Hematocrit 40.3 % (37-47); Hemoglobin 13.4 g/dL (12.0-15.0); Lymphocyte # 4.01 X10^3/ul (0.83-4.51); Lymphocyte % 48.1 % (19-41); Mean Corp Hgb Conc 33.3 g/dL (32-36); Mean Corpuscular Hgb 31.4 pg (27.0-32.0); Mean Corpuscular Volume 94.4 fL (81-99); Mean Platelet Vol. 10.1 fl (6.2-12.0); Monocyte# 0.85 X10^3/uL; Monocyte% 10.2 % (0-10); NRBC Flagged by Analyzer 0 % (0-5); Neutrophil # 2.96 X10^3/uL (2.7-7.7); Neutrophil % 35.6 % (47-70); Platelet Count 317 K/mm3 (150-450); RBC Distribution Width CV 13.1 % (11.6-14.6); RBC Distribution Width SD 44.8 fl (35.1-43.9); Red Blood Count 4.27 M/mm3 (4.2-5.4); White Blood Count 8.3 K/mm3 (4.4-11.0)
[2021-11-15 20:26] VITALS: BP 148/97; PULSE 92; RESP 18; O2SAT 100
[2021-11-15 20:31] LABS: Anion Gap 10 (5-15); BUN 15 mg/dL (7-18); BUN/Creat Ratio 15.9 RATIO (10-20); Calcium,Total 9.8 mg/dL (8.5-10.1); Chloride 101 mmol/L (98-107); Creatinine, Serum 0.94 mg/dL (0.55-1.02); EST Glomerular Filtration Rate 63 mL/min (>60); Est Glom Filt Rate - Afr Amer 76 mL/min (>60); Estimated Creatinine Clearance 44.42 ml/min; Glucose 213 mg/dL (74-106); Potassium 3.5 mmol/L (3.5-5.1); Sodium Level 137 mmol/L (136-145); Troponin-I HS 8 pg/mL (3.0-54.0)
[2021-11-15 20:44] VITALS: BP 143/97
== END 2021-11-15 20:49 | disposition home or self-care (01) ==
PROVIDERS: Emergency Provider Physician Assistant; PCP Family Medicine; Visit Provider Physician Assistant
DX: I47.1 Supraventricular tachycardia (principal); E11.9 Type 2 diabetes mellitus without complications; I10 Essential (primary) hypertension; Z96.651 Presence of right artificial knee joint; Z79.82 Long term (current) use of aspirin; Z79.899 Other long term (current) drug therapy
CPT/HCPCS: 71045; 80048; 84484; 85025; 93005; 99282; A4216

== ENCOUNTER → 2022-05-25 | Outpatient (CLI) | payer MEDICARE, OTHER, SELFPAY ==
--- NOTE | 2022-05-25 07:58 | BI_ITS ---
MAMMOGRAPHY - BILATERAL SCREENING REASON FOR EXAM: Female, 66 years old. Routine annual screening examination. PERTINENT HISTORY: Mother with breast cancer. TECHNIQUE: Digital bilateral breast kelsey (3D mammographic acquisition) in the CC and MLO projections. 2-D mediolateral oblique (MLO) and craniocaudad (CC) views of both breasts were obtained. CAD: Full Field Digital Mammography with Computer Added Detection was performed. COMPARISON: Screening mammogram from 05/22/2021, 05/02/2020, 02/09/2019. FINDINGS: Breast Composition: There are scattered areas of fibroglandular density. There are no dominant masses or suspicious calcifications. No other significant abnormalities are identified. There has been no significant change since the prior study. BI/SCRN MAMM (CAD)W/KELSEY BILAT IMPRESSION: Stable bilateral screening mammogram. Yearly follow-up mammogram recommended. (A) ASSESSMENT CATEGORY: BIRADS Category 1: Negative. A letter regarding these results will be sent to the patient by the facility within 30 days. Approximately 10% of breast cancers are not detected by mammography. A normal mammogram should not delay biopsy of a clinically suspicious abnormality. Electronically Signed: Catracho Godoy, at 13:32 EDT ,
== END | disposition home or self-care (01) ==
LOC: OPBI 07:57
PROVIDERS: PCP Family Medicine; Visit Provider Nurse Practitioner Women's Health
DX: Z12.31 Encounter for screening mammogram for malignant neoplasm of breast (principal)
CPT/HCPCS: 77063; 77067

== ENCOUNTER 2022-07-10 11:24 | Inpatient (IN) | payer MEDICARE, OTHER, SELFPAY ==
[2022-07-10] VITALS (10 sets, daily range): BP systolic 123–144; BP diastolic 66–85; PULSE 63–100; RESP 16–20; TEMP 36.1–37.1; O2SAT 97–100; BMI 27.4; BMI 27.1
--- NOTE | 2022-07-10 12:17 | EKG12_ITS ---
Test Reason : Blood Pressure : / mmHG Vent. Rate : 098 BPM Atrial Rate : 098 BPM P-R Int : 148 ms QRS Dur : 088 ms QT Int : 386 ms P-R-T Axes : 072 010 008 degrees QTc Int : 492 ms Normal sinus rhythm Nonspecific ST and T wave abnormality Prolonged QT Abnormal ECG Confirmed by CONSUELO PEREZ, GINA ([id number]), newspaper copy editor ANGELA VELEZ ([id number]) on 07/13/2022 10:06:35 AM Referred By: KANDI Confirmed By:GINA CORDERO MD
--- NOTE | 2022-07-10 12:23 | EDS_ITS ---
HPI History of Present Illness Chief Complaint: Palpitations Informant: patient Onset/Context/Timing Onset: Today and Hours Activity at onset: sudden Timing: Continuous Quality: Positive for Dull Current Severity: Moderate Maximum Severity: Moderate Worsened By: Nothing Relieved By: Nothing Narrative Narrative: Six 7-year-old female prior history of palpitations but never diagnosed. She wore heart monitors in the past but they could not find anything. Today she was at home around 9:00 had sudden onset of racing heart rate. Associated chest pain, lightheadedness dizziness. Lasted 2 to 3 hours. Squad was called as they were bringing her in the hospital she was given Identicard for an SVT and it resolved prior to arrival. They do have a rhythm strip with SVT on it. Patient feels much improved at this time. She has no other underlying cardiac history. Prior Similar Symptoms: Yes Recent Illness/Hospitalization: No CVD Risk Factors: Positive for Diabetes PE Risk Factors: Negative for Recent Immobilization, Prior DVT or PE, Cancer or OCP + Smoking + >/=35 TAD Risk Factors: Negative for Marfan's Syndrome [facility] Medical History Alcohol use Arthritis Diabetes History of echocardiogram Hypertension PONV (postoperative nausea and vomiting) Wears glasses Home Medications losartan 25 mg tablet 25 mg PO QHS BLOOD PRESSURE 04/18/17 [History Last Taken 07/09/22] metformin 500 mg tablet 500 mg PO BIDCM DM 04/18/17 [History Last Taken 07/10/22] zolpidem 12.5 mg tablet,extended release,multiphase (Ambien CR) 12.5 mg PO QHS PRN Insomnia 11/17/17 [History Last Taken 07/09/22] estradiol 0.01% (0.1 mg/gram) vaginal cream 0.1 applic vaginal SUWE 07/16/21 [History Last Taken 07/09/22] apple cider vinegar 300 mg tablet 300 mg PO BID SUPPLEMENT 07/10/22 [History Last Taken 07/10/22] aspirin 81 mg tablet,delayed release 81 mg PO DAILY HEART HEALTH 07/10/22 [History Last Taken 07/09/22] Allergy/AdvReac Type Severity Reaction Status Date / Time prednisone Allergy Other Verified 07/10/22 11:25 codeine AdvReac Vomiting Verified 07/10/22 11:25 Family History Mother Breast cancer Father Bladder cancer metastasized to liver Bladder cancer Prostate cancer Surgical History H/O: hysterectomy History of bladder surgery History of Status post total right knee replacement Social History current occupational status: retired Smoking Status: Never smoker alcohol intake: current alcohol intake frequency: a few times a week Alcohol type: wine substance use type: does not use caffeine: Yes what type of physical activity do you participate in: aerobics frequency: 3-4 times per week seatbelt use: always do you feel safe at home: Yes additional social history: -Gurjit- GMI ROS ROS ED ROS Narrative Denies recent illness. Review of Systems ROS Unobtainable: Denies due to encephalopathy Constitutional Constitutional ED: Denies chills or fever(s) Eyes Eyes: Reports none ENT ENT ED: Denies ear pain Cardiovascular Cardiovascular: Reports as per HPI, chest pain, palpitations and racing heartbeat Respiratory/Chest Respiratory/Chest: Denies cough or dyspnea Gastrointestinal Gastrointestinal: Denies abdominal pain Genitourinary Genitourinary ED: Denies dysuria or hematuria Musculoskeletal Musculoskeletal: Denies arthralgias Integumentary Denies abscess Neurologic Neurologic: Denies headache(s) Psychiatric Psychiatric: Denies anxiety Endocrine Endocrinology: Denies cold intolerance Hematologic/Lymphatic Hematologic/Lymphatic: Denies easy bleeding Allergic/Immunologic Allergic/Immunologic ED: Denies mouth swelling EXAM Physical Exam Narrative Exam Narrative: C7-year-old female no acute distress. Vital signs stable afebrile. H EENT exam unremarkable. Neck nontender no thyromegaly. No lymphadenopathy. No JVD. Lungs clear to auscultation bilaterally. Heart regular rate and rhythm rate about 97 no murmur. Chest nontender. Abdomen soft nontender. Moving all 4 extremities. Calves are nontender without edema or cords. Neurologic exam normal. Const Vital Signs: 07/10/22 11:25 07/10/22 11:45 07/10/22 12:21 Temperature 98.0 F Temperature Source Temporal Pulse Rate 100 Respiratory Rate 18 Respiratory Effort Normal Non-Labored Blood Pressure 125/73 H Blood Pressure Mean 90 Pulse Ox 100 Oxygen Delivery Method Room Air Room Air 07/10/22 12:28 07/10/22 13:02 07/10/22 14:28 Temperature Temperature Source Pulse Rate 93 91 81 Respiratory Rate 20 H 19 H 18 Respiratory Effort Blood Pressure 125/82 H 132/82 H Blood Pressure Mean 96 Pulse Ox 97 98 98 Oxygen Delivery Method Room Air Room Air Positive well nourished and well developed; Negative for obese, cachectic, contractures or unkempt General Appearance ED: well developed and NAD; Negative for unkempt, cachectic, contractures or pallor Nutritional Appearance: Negative for cachectic or obese HEENT Reports moist mucous membranes normocephalic and atraumatic; Negative for trauma or tenderness Eyes PERRL and EOMs intact bilaterally General Eye ED: Negative for pale conjunctiva Neck no lymphadenopathy, supple and no JVD General: Negative for tenderness Chest Wall inspection of chest normal and palpation of chest normal Chest: Negative for tenderness Resp normal respiratory effort and clear to auscultation bilaterally Effort and Inspection: Negative for respiratory distress Auscultation: Negative for rales, rhonchi or wheezes Cardio regular rate, regular rhythm, S1 normal heart sound, S2 normal heart sound and no murmurs Rate: Negative for bradycardia Rhythm: Negative for abnormal rhythm Peripheral Pulses: pulses 2+ throughout GI normal to inspection, nondistended, normoactive bowel sounds, soft to palpation, non-tender, non-distended and no masses Auscultation: Negative for hyperactive bowel sounds Palpation: Negative for splenomegaly Back/Spine no CVA tenderness and no thoracic nor lumbar tenderness General Back: Negative for CVA tenderness Cervical Spine: Negative for cervical spine tenderness Extremity normal to inspection General Extremety ED: Negative for edema or pulses abnormal General Extremity: Negative for edema or pulses abnormal Neuro oriented x3 and CN's II-XII intact bilaterally Sensorium / Orientation: awake, alert, oriented to person, oriented to place and oriented to time; Negative for confused, lethargic or stuporous Motor Exam: strength 5/5 throughout Psych mental status grossly normal Appearance: Negative for unkempt Attitude: No agitated Mood & Affect: Negative for depressed, anxious or tearful Skin no rashes or lesions noted and no wounds General Skin Exam: Negative for jaundice or pallor Rashes: No rashes noted Trauma: Negative for abrasion MDM MDM MDM Narrative Medical decision making narrative: 67-year-old with had an SVT that resolved when the squad gave adenosine. Undergo cardiac work-up. Repeat exam patient doing well. She did have an SVT on the squad's EKG and rhythm strip. Initial troponin returned normal at 24. 2-hour troponin was done was 1143. Patient is completely symptom-free. She is having no chest pain. She will be admitted to the hospitalist. I have cardiology on page also. Treated with baby aspirin. Lab Data Attestation: I reviewed the patient's lab results. Lab results narrative: CBC normal white count 9. H&H 12.1 and 38. Electrolytes show a gap of 13 normal BUN and creatinine. Glucose of 212. Troponin 24. 2-hour troponin returned and was elevated at 1143. TSH normal at 2.33. Chest x-ray unremarkable. Labs: Laboratory Results - last 24 hr 07/10/22 07/10/22 07/10/22 11:00 11:00 13:10 WBC 9.0 RBC 4.37 Hgb 12.1 Hct 38.7 MCV 88.6 MCH 27.7 MCHC 31.3 L RDW Std Deviation 45.9 H RDW Coeff of Aries 14.2 Plt Count 291 MPV 10.2 Immature Gran % (Auto) 0.300 Neut % (Auto) 53.5 Lymph % (Auto) 28.3 [place] % (Auto) 13.5 H Eos % (Auto) 3.4 Baso % (Auto) 1.0 Absolute Neuts (auto) 4.8 Absolute Lymphs (auto) 2.55 Nucleated RBC % 0 Sodium 140 Potassium 3.9 Chloride 103 Carbon Dioxide 24.0 Anion Gap 13 BUN 16 Creatinine 0.88 Estim Creat Clear Calc 49.06 Est GFR (MDRD) Af Amer 82 Est GFR (MDRD) Non-Af 68 BUN/Creatinine Ratio 18.1 Glucose 212 H Calcium 9.9 Troponin I High Sens 24 1143 H* TSH 2.33 Radiography Chest X-Ray - ED: 1 View, Read by ED Physician, Read by Radiologist, Heart, Lungs, Mediastinum, Bony Structures, No Acute Disease and Chronic Changes Diagnostic Testing: Clinical Impression(s) from Imaging Studies Chest X-Ray 07/10/22 12:35 IMPRESSION: No acute abnormalities. Stable examination. Electronically Signed: Shahriar Dutta MD at 12:51 EDT , Chest x-ray, portable, single view interpreted myself and the radiologist shows no acute abnormality. Normal cardiac silhouette. Rhythm Strip Rhythm Strip: Sinus Rhythm Rate: 98 Ectopy: None EKG Initial EKG: Attestation: I personally reviewed and interpreted this EKG as follows: Interpretation: Sinus Rhythm and No Acute Injury Pattern Comments: Normal sinus rhythm rate of 98 no acute signs of UT or ischemia. Follow-up EKG: Attestation: I personally reviewed and interpreted this EKG as follows: Interpretation: Sinus Rhythm and No Acute Injury Pattern Comments: Normal sinus rhythm rate 84 no acute signs of UT or ischemia. Discharge Plan Dx/Rx/DC Orders Clinical Impression: Supraventricular tachycardia, DM II (diabetes mellitus, type II), controlled, Non-ST elevated myocardial infarction Disposition Disposition: Acute Care Hospital [facility] Discharge Date/Time: 07/10/22 14:28
[2022-07-10 12:31] LABS: Absolute Lymphocyte Count 2.55 X10^3/uL (0.83-4.51); Absolute Neutrophil Count 4.8 X10^3/uL (2.0-7.7); Basophil# 0.09 X10^3/uL; Eosinophil# 0.31 X10^3/uL; Eosinophils% 3.4 % (0-5); Hematocrit 38.7 % (37-47); Hemoglobin 12.1 g/dL (12.0-15.0); Lymphocyte # 2.55 X10^3/ul (0.83-4.51); Lymphocyte % 28.3 % (19-41); Mean Corp Hgb Conc 31.3 g/dL (32-36); Mean Corpuscular Hgb 27.7 pg (27.0-32.0); Mean Corpuscular Volume 88.6 fL (81-99); Mean Platelet Vol. 10.2 fl (6.2-12.0); Monocyte# 1.22 X10^3/uL; Monocyte% 13.5 % (0-10); NRBC Flagged by Analyzer 0 % (0-5); Neutrophil # 4.82 X10^3/uL (2.7-7.7); Neutrophil % 53.5 % (47-70); Platelet Count 291 K/mm3 (150-450); RBC Distribution Width CV 14.2 % (11.6-14.6); RBC Distribution Width SD 45.9 fl (35.1-43.9); Red Blood Count 4.37 M/mm3 (4.2-5.4)
--- NOTE | 2022-07-10 12:35 | RAD_ITS ---
STUDY: X-RAY CHEST REASON FOR EXAM: Female, 67 years old. Chest pain. Palpitations. TECHNIQUE: Single AP portable view of the chest. COMPARISON: Comparison is made with prior study dated 11/15/2021. FINDINGS: EKG electrodes are seen. The lungs are clear and expanded. There is no demonstrated pleural abnormality. Normal size heart. Normal mediastinum and keanu. Normal visualized pulmonary arteries. Normal visualized aortic arch and descending thoracic aorta. There are diffuse degenerative changes of the visualized thoracic spine. Normal visualized ribs, clavicles, and shoulders. There is no demonstrated abnormality of the visualized soft tissue structures of the upper abdomen. RAD/Chest 1 View (Portable) IMPRESSION: No acute abnormalities. Stable examination. Electronically Signed: Shahriar Dutta MD at 12:51 EDT ,
[2022-07-10 12:52] LABS: Anion Gap 13 (5-15); BUN 16 mg/dL (7-18); BUN/Creat Ratio 18.1 RATIO (10-20); Calcium,Total 9.9 mg/dL (8.5-10.1); Chloride 103 mmol/L (98-107); Creatinine, Serum 0.88 mg/dL (0.55-1.02); EST Glomerular Filtration Rate 68 mL/min (>60); Est Glom Filt Rate - Afr Amer 82 mL/min (>60); Estimated Creatinine Clearance 49.06 ml/min; Glucose 212 mg/dL (74-106); Potassium 3.9 mmol/L (3.5-5.1); Sodium Level 140 mmol/L (136-145); Thyroid Stim Hormone (TSH) 2.33 uIU/mL (0.358-3.74); Troponin-I HS (w/2H Reflex) 24 pg/mL (3.0-54.0)
[2022-07-10 14:27] LABS: Reflex Troponin-HS? (from REC) Y
[2022-07-10 14:51] LABS: Troponin-I HS 1143 pg/mL (3.0-54.0)
--- NOTE | 2022-07-10 15:50 | EKG12_ITS ---
Test Reason : CP REPEAT Blood Pressure : / mmHG Vent. Rate : 084 BPM Atrial Rate : 084 BPM P-R Int : 142 ms QRS Dur : 096 ms QT Int : 412 ms P-R-T Axes : 068 009 018 degrees QTc Int : 486 ms Normal sinus rhythm Normal ECG Confirmed by CONSUELO PEREZ, GINA ([id number]), state editor ANGELA VELEZ ([id number]) on 07/13/2022 10:11:16 AM Referred By: Confirmed By:GINA CORDERO MD
--- NOTE | 2022-07-10 15:55 | HP.PCM.HOS_ITS ---
HPI - General General Date of Admission: 07/10/22 Date of Service: 07/10/22 Chief Complaint: Palpitations - this morning HPI Narrative URIEL LEES, is a 67 F with past medical history of SVT who presents with the above. This lasted for about 2 hours. The EMS was called and SVT was found on telemetry strip. Patient was given 6 mg of IV adenosine with conversion to sinus rhythm. Patient stated that she had chest pain at that time of the palpitations. It was substernal, radiated to the neck and the left arm. It was associated with diaphoresis, slight dizziness, difficulty hearing. Patient denied any symptoms at the time of being seen. She gives a history of palpitations about 8 years ago. She underwent a stress test that was unremarkable. She had a similar episode 8 months ago, resolved with bearing down. She never had a Holter monitor. In the ED, her blood pressure was 144/66, heart rate 85, pulse ox of 98% on room air, temperature 96.9F. WBC count was 9.0, hemoglobin 12.1, platelet count 291. CMP was unremarkable. Glucose 212. Initial troponin 24, repeat troponin 1143. TSH 2.33 [facility] Medical History Alcohol use Arthritis Diabetes History of echocardiogram Hypertension PONV (postoperative nausea and vomiting) Wears glasses Home Medications losartan 25 mg tablet 25 mg PO QHS BLOOD PRESSURE 04/18/17 [History Last Taken 07/09/22] metformin 500 mg tablet 500 mg PO BIDCM DM 04/18/17 [History Last Taken 07/10/22] zolpidem 12.5 mg tablet,extended release,multiphase (Ambien CR) 12.5 mg PO QHS PRN Insomnia 11/17/17 [History Last Taken 07/09/22] estradiol 0.01% (0.1 mg/gram) vaginal cream 0.1 applic vaginal SUWE 07/16/21 [History Last Taken 07/09/22] apple cider vinegar 300 mg tablet 300 mg PO BID SUPPLEMENT 07/10/22 [History Last Taken 07/10/22] aspirin 81 mg tablet,delayed release 81 mg PO DAILY HEART HEALTH 07/10/22 [History Last Taken 07/09/22] Allergy/AdvReac Type Severity Reaction Status Date / Time prednisone Allergy Other Verified 07/10/22 11:25 codeine AdvReac Vomiting Verified 07/10/22 11:25 Family History Mother Breast cancer Father Bladder cancer metastasized to liver Bladder cancer Prostate cancer Surgical History H/O: hysterectomy History of bladder surgery History of Status post total right knee replacement Social History current occupational status: retired Smoking Status: Former smoker alcohol intake: current alcohol intake frequency: a few times a week Alcohol type: wine substance use type: does not use caffeine: Yes what type of physical activity do you participate in: aerobics frequency: 3-4 times per week seatbelt use: always do you feel safe at home: Yes additional social history: -Gurjit- GMI ROS ROS Narrative Constitutional: Denies: Anorexia, Chills, Fever, Night Sweats, Weight Change Eyes: Denies: Blurred vision, Cataracts, Conjunctivae Inflammation, Pain, Redness, Vision Change HEENT: Denies: Difficulty Hearing, Difficulty Swallowing, Head Aches, Hearing Changes, Sinus Congestion, Sinus Drainage Cardiovascular: See HPI Respiratory: Denies: Cough, Shortness of breath at rest, Sputum production Gastrointestinal: Denies: Abdominal Pain, Nausea, Vomiting Genitourinary: Denies: Dysuria Musculoskeletal: Denies: Joint Pain, Joint stiffness, Joint swelling, Joint Tenderness Skin: Denies: Rash, Wounds Neurological: Denies: Numbness, Tingling, Focal weakness Vital Signs Vital Signs Vital Signs: 07/10/22 11:25 07/10/22 11:45 07/10/22 12:21 Temperature 98.0 F Temperature Source Temporal Pulse Rate 100 Respiratory Rate 18 Respiratory Effort Normal Non-Labored Blood Pressure 125/73 H Blood Pressure Mean 90 Pulse Ox 100 Oxygen Delivery Method Room Air Room Air 07/10/22 12:28 07/10/22 13:02 07/10/22 14:28 Temperature Temperature Source Pulse Rate 93 91 81 Respiratory Rate 20 H 19 H 18 Respiratory Effort Blood Pressure 125/82 H 132/82 H Blood Pressure Mean 96 Pulse Ox 97 98 98 Oxygen Delivery Method Room Air Room Air Weight Weight: 68.039 kg Body Mass Index (BMI) 27.4 Physical Exam Narrative General: Alert, Oriented x3, Cooperative, No apparent distress HEENT: Atraumatic, PERRLA, EOMI, Normocephalic Oral: Moist Mucosa Neck: Supple Lungs: Normal air movement, Diminished Cardiovascular: Regular rate, Regular Rhythm, Normal S1, Normal S2, No murmurs Abdomen: Bowel Sounds Present, Soft, Non Tender, Non-Distended, No Hepato-s plenomegaly Extremities: No edema Skin: No rashes Neurological: Cranial nerves II-XII grossly intact, Neuro grossly intact Psych/Mental Status: Normal Affect, Appropriate Results Lab / Micro Data Result Diagrams: 07/10/22 11:00 07/10/22 11:00 Labs: Laboratory Results - last 24 hr 07/10/22 11:00: WBC 9.0, RBC 4.37, Hgb 12.1, Hct 38.7, MCV 88.6, MCH 27.7, MCHC 31.3 L, RDW Std Deviation 45.9 H, RDW Coeff of Aries 14.2, Plt Count 291, MPV 10.2, Immature Gran % (Auto) 0.300, Neut % (Auto) 53.5, Lymph % (Auto) 28.3, [place] % (Auto) 13.5 H, Eos % (Auto) 3.4, Baso % (Auto) 1.0, Absolute Neuts (auto) 4.8, Absolute Lymphs (auto) 2.55, Nucleated RBC % 0 07/10/22 11:00: Sodium 140, Potassium 3.9, Chloride 103, Carbon Dioxide 24.0, Anion Gap 13, BUN 16, Creatinine 0.88, Estim Creat Clear Calc 49.06, Est GFR (MDRD) Af Amer 82, Est GFR (MDRD) Non-Af 68, BUN/Creatinine Ratio 18.1, Glucose 212 H, Calcium 9.9, Troponin I High Sens 24, TSH 2.33 07/10/22 13:10: Troponin I High Sens 1143 H* Rhythm Strip Rhythm Strip: Sinus Rhythm Rate: 98 Ectopy: None Radiology Impression Chest X-Ray 07/10/22 12:35 IMPRESSION: No acute abnormalities. Stable examination. Electronically Signed: Shahriar Dutta MD at 12:51 EDT , Assessment & Plan Assessment/Plan (1) Non-ST elevated myocardial infarction: (2) Supraventricular tachycardia: PLAN: Plan 1. SVT, history of SVTs, resolved with vagal maneuvers Status post adenosine 6 mg IV, resolved TSH was 2.33, check magnesium level Admit to PCU, metoprolol 12.5 mg p.o. twice daily, 2D echo, cardiology consult 2. Acute NSTEMI, EKG shows no acute ST-T changes Troponin was 24 -->1143 Continue on aspirin,metoprolol 3. Hypertension, controlled, continue on metoprolol Hold home losartan for now 4. Type II DM, on metformin, will hold metformin, Continue to monitor the blood glucose checks and insulin sliding scale 5. DVT prophylaxis?heparin subcu Charges/Coding Visit Charges Inpatient E&M: 99119 Init Hosp L3 Procedures Hospitalists Procedures: 25443 Advncd Care Plan 30 Min
[2022-07-10] MEDS: Aspirin 325 MG Tablet PO (16:52)
[2022-07-10 17:40] LABS: Bedside Glucose 112 mg/dL (74-106)
[2022-07-10 18:23] LABS: Magnesium 2.2 mg/dL (1.6-2.6)
[2022-07-10 18:36] LABS: Hemoglobin A1c 6.8 % (3.8-5.6)
[2022-07-10 18:36] LABS: Troponin-I HS 3065 pg/mL (3.0-54.0)
[2022-07-10 19:23] LABS: Prothrombin Time (Protime)PT. 12.7 SECONDS (11.7-14.9)
[2022-07-10 19:24] LABS: Partial Thromboplast Time 24.8 Seconds (24.1-36.2)
[2022-07-10] MEDS: 0.9% Saline Lock 10 ML Syringe IV (20:05)
[2022-07-10] MEDS: HEPARIN/D5w 25,000 UNITS 25,000 UNITS/250 ML IV.SOLN. 10 UNITS CONT INF (20:06)
[2022-07-10] MEDS: Zolpidem Tartrate 5 MG Tablet 10 MG PO (22:53)
[2022-07-10 23:50] LABS: Bedside Glucose 115 mg/dL (74-106)
[2022-07-11] VITALS (15 sets, daily range): BP systolic 108–133; BP diastolic 62–85; PULSE 58–85; RESP 16–18; TEMP 36.3–36.8; O2SAT 93–99
[2022-07-11 02:37] LABS: Partial Thromboplast Time 51.5 Seconds (24.1-36.2)
[2022-07-11] MEDS: Heparin Injection (Vial) 5,000 UNIT/ML VIAL IV (03:02)
[2022-07-11 06:08] LABS: Absolute Neutrophil Count 1.5 X10^3/uL (2.0-7.7); Basophil# 0.06 X10^3/uL; Basophil% 1.3 % (0-1); Eosinophil# 0.31 X10^3/uL; Eosinophils% 6.9 % (0-5); Hematocrit 34.8 % (37-47); Hemoglobin 10.9 g/dL (12.0-15.0); Lymphocyte % 46.6 % (19-41); Mean Corp Hgb Conc 31.3 g/dL (32-36); Mean Corpuscular Hgb 27.9 pg (27.0-32.0); Mean Platelet Vol. 9.7 fl (6.2-12.0); Monocyte# 0.52 X10^3/uL; Monocyte% 11.5 % (0-10); NRBC Flagged by Analyzer 0 % (0-5); Neutrophil # 1.51 X10^3/uL (2.7-7.7); Neutrophil % 33.5 % (47-70); Platelet Count 179 K/mm3 (150-450); RBC Distribution Width CV 14.4 % (11.6-14.6); RBC Distribution Width SD 46.4 fl (35.1-43.9); Red Blood Count 3.91 M/mm3 (4.2-5.4); White Blood Count 4.5 K/mm3 (4.4-11.0)
[2022-07-11 06:40] LABS: AST(SGOT) 32 U/L (15-37); Alanine Aminotransfer ALT/SGPT 36 U/L (13-56); Albumin, Serum 3.3 g/dL (3.2-5.0); Alkaline Phosphatase 100 U/L (45-117); Anion Gap 5 (5-15); BUN 12 mg/dL (7-18); Chloride 106 mmol/L (98-107); Cholesterol 177 mg/dL (200); Creatinine, Serum 0.75 mg/dL (0.55-1.02); EST Glomerular Filtration Rate 82 mL/min (>60); Est Glom Filt Rate - Afr Amer 99 mL/min (>60); Estimated Creatinine Clearance 43.18 ml/min; Globulin 3.3 g/dL (2.2-4.2); Glucose 137 mg/dL (74-106); High Density Lipoprotein 64 mg/dL; Potassium 4.5 mmol/L (3.5-5.1); Protein, Total 6.6 g/dL (6.4-8.2); Sodium Level 142 mmol/L (136-145); Triglycerides 71 mg/dL; Very Low Density Lipoprotein 14 mg/dL (5-40)
[2022-07-11 06:51] LABS: Bedside Glucose 149 mg/dL (74-106)
--- NOTE | 2022-07-11 07:57 | PN.HOSP_ITS ---
Objective Data Objective Data Vital Signs: Vital Signs Temp Pulse Resp BP Pulse Ox O2 Del Method 97.9 F 85 18 110/85 H 96 Room Air 07/11/22 03:05 07/11/22 07:00 07/11/22 03:05 07/11/22 03:05 07/11/22 03:05 07/11/22 03:05 Oxygen Delivery Method Room Air Weight: 67 kg Body Mass Index (BMI) 27.1 Intake & Output: Intake and Output for Last 24 Hours 07/09/22 07/10/22 07/11/22 23:59 23:59 23:59 Intake Total 240 / 240 69.67 / 69.67 Balance 240 / 240 69.67 / 69.67 Lab / Micro Data Result Diagrams: 07/11/22 05:44 07/11/22 05:44 Labs: Laboratory Results - last 24 hr 07/10/22 11:00: WBC 9.0, RBC 4.37, Hgb 12.1, Hct 38.7, MCV 88.6, MCH 27.7, MCHC 31.3 L, RDW Std Deviation 45.9 H, RDW Coeff of Aries 14.2, Plt Count 291, MPV 10.2, Immature Gran % (Auto) 0.300, Neut % (Auto) 53.5, Lymph % (Auto) 28.3, [place] % (Auto) 13.5 H, Eos % (Auto) 3.4, Baso % (Auto) 1.0, Absolute Neuts (auto) 4.8, Absolute Lymphs (auto) 2.55, Nucleated RBC % 0 07/10/22 11:00: Sodium 140, Potassium 3.9, Chloride 103, Carbon Dioxide 24.0, Anion Gap 13, BUN 16, Creatinine 0.88, Estim Creat Clear Calc 49.06, Est GFR (MDRD) Af Amer 82, Est GFR (MDRD) Non-Af 68, BUN/Creatinine Ratio 18.1, Glucose 212 H, Calcium 9.9, Troponin I High Sens 24, TSH 2.33 07/10/22 11:00: Hemoglobin A1c 6.8 H 07/10/22 13:10: Troponin I High Sens 1143 H* 07/10/22 13:10: Magnesium 2.2 07/10/22 17:17: POC Glucose 112 H 07/10/22 18:00: Troponin I High Sens 3065 H* 07/10/22 18:50: PT 12.7, INR 1.0, APTT 24.8 07/10/22 22:40: POC Glucose 115 H 07/11/22 02:17: APTT 51.5 H 07/11/22 05:44: WBC 4.5, RBC 3.91 L, Hgb 10.9 L, Hct 34.8 L, MCV 89.0, MCH 27.9, MCHC 31.3 L, RDW Std Deviation 46.4 H, RDW Coeff of Aries 14.4, Plt Count 179, MPV 9.7, Immature Gran % (Auto) 0.200, Neut % (Auto) 33.5 L, Lymph % (Auto) 46.6 H, [place] % (Auto) 11.5 H, Eos % (Auto) 6.9 H, Baso % (Auto) 1.3 H, Absolute Neuts (auto) 1.5 L, Absolute Lymphs (auto) 2.10, Nucleated RBC % 0 07/11/22 05:44: Sodium 142, Potassium 4.5, Chloride 106, Carbon Dioxide 31.0, Anion Gap 5, BUN 12, Creatinine 0.75, Estim Creat Clear Calc 43.18, Est GFR (MDRD) Af Amer 99, Est GFR (MDRD) Non-Af 82, BUN/Creatinine Ratio 16.0, Glucose 137 H, Calcium 9.0, Total Bilirubin 0.90, AST 32, ALT 36, Alkaline Phosphatase 100, Total Protein 6.6, Albumin 3.3, Globulin 3.3, Albumin/Globulin Ratio 1.0, Triglycerides 71, Cholesterol 177, LDL Cholesterol 99, VLDL Cholesterol 14, HDL Cholesterol 64 07/11/22 06:19: POC Glucose 149 H Radiography Diagnostic Testing: Radiology Impression Chest X-Ray 07/10/22 12:35 IMPRESSION: No acute abnormalities. Stable examination. Electronically Signed: Shahriar Dutta MD at 12:51 EDT , Rhythm Strip Rhythm Strip: Sinus Rhythm Rate: 98 Ectopy: None
[2022-07-11 09:14] LABS: Partial Thromboplast Time 62.2 Seconds (24.1-36.2)
[2022-07-11] MEDS: Aspirin E.C. 81 MG Tablet PO (09:35)
[2022-07-11] MEDS: Metoprolol Tartrate 25 MG Tablet 12.5 MG PO (09:35)
--- NOTE | 2022-07-11 10:15 | CASEMGMT ---
CASSANDRA FRIEND Assessment: Face to Face with pt for initial transition planning/care coordination assessment. CASSANDRA FRIEND introduced self and role at [facility], pt voices understanding and consents to assessment. Pt is A/O x4 and answers all questions appropriately at this time. Pt standing in room throughout assessment, at bedside. Care providers, pharmacy, and demographics verified/updated. Admitting Dx: NSTEMI/SVT PCP:[facility] Specialists:Pt denies. Preferred Pharmacy: [facility] Insurance: [facility], MMO Prescription Benefit: yes LW/HPOA: Pt states she has a LW/DPOA and her DPOA is her Gurjit Julian. She is aware this is not on file at [facility] and she may bring in to be scanned into her chart. LNOK: Gurjit Julian, Living Arrangements: Pt lives with in a split level house with 2 steps to enter with a rail. Pt reports she is I in ADL's and denies concerns at home. Transportation: Pt drives self and denies concerns with transportation. DME/HHC/SNF: Pt has a BGM with sufficient supplies. Pt states she only checks her blood sugar when she is symptomatic. Pt has a cane but does not use. [facility] and denies SNF stays. Pt states no concerns with going home at time of dc. Pt states no further concerns/needs. CM to follow. Advised pt to ask CM if any further question/concerns/needs arise, voices understanding. Pt Goal: Home Plan: Home
--- NOTE | 2022-07-11 12:05 | CL.D_ITS ---
Patient Name: URIEL LEES Study Date: 07/11/2022 Performing: Georgina Forde MD Ht: 62 inches 157.48 cm : 1955 Wt: 147.71 lbs 67 kg Age: 67 Gender: female BSA: 1.68 PROCEDURE(S) PERFORMED DC01-(80579)LHC/COR/LV CLINICAL PROFILE AND INDICATIONS Heart Failure: None CONCLUSIONS Mild CAD LVEF 55% RECOMMENDATIONS DESCRIPTION OF PROCEDURE The patient arrived to the procedure lab. The risks and benefits of the procedure as well as a full description of our services here and current unavailability of surgical backup were fully explained to the patient and/or their significant other prior to the catheterization. The Timeout was completed, verifying the correct patient and procedure. The patient's procedural site was prepped and draped in the usual fashion. Local anesthetic was given subcutaneously to right radial region with Lidocaine 2%. Using a modified Seldinger technique, arterial access was obtained via the right radial artery, a 6Fr sheath was inserted. Left Coronary Artery selective angiography was performed in multiple views using a 5 Fr. 4.0 [place] catheter. Right Coronary Artery selective angiography was then performed in multiple views using a 5 Fr. 4.0 [place] catheter. Left Ventriculography was performed in SIDDIQUI projection using a 5 Fr. Pigtail catheter. LV to AO pullback pressures were then recorded.The arterial sheath was pulled and a TR Band was applied for hemostasis CORONARY ANGIOGRAPHY DOMINANCE: Right Dominant LEFT HEART ASSESSMENT Left Ventricular Ejection Fraction: by LV Gram 55 % LVEDP: 6 mmHg LEFT MAIN: No significant disease noted LEFT ANTERIOR DESCENDING ARTERY: Minimal luminla irregularities CIRCUMFLEX ARTERY: Mild luminal irregularities RIGHT CORONARY ARTERY: 20% Prox. COMPLICATIONS PROCEDURE MEDICATIONS Versed 2 mg IV Fentanyl 50 mcg IV Oxygen: 2 L/min via nasal cannula Heparin given IA 07/11/2022 11:49:46 Verapamil 2.5mg, Ntg 100mcgs, 2000 units of Heparin given IA 07/11/2022 11:49:46 IV Bolus: .9 NaCl 250 ml total 07/11/2022 11:58:56 SUMMARY OF HEMODYNAMIC DATA Time AIR REST ECG 11:30:03 AO 113/68 (88) SA 11:52:03 LV 119/0, 4 11:57:26 LV 131/1, 3 11:57:33 LV 115/15, 15 11:58:24 LV 107/13, 16 11:58:30 LVp 112/15, 16 11:58:33 AOp 122/79 (99) 11:58:38 Signed By Georgina Forde MD On 07/11/2022 12:04:57 Georgina Forde MD
--- NOTE | 2022-07-11 12:07 | PCM.CONS.C ---
Assessment & Plan Assessment/Plan (1) Non-ST elevated myocardial infarction: PLAN: Coronary angiography and left heart catheterization was recommended. After obtaining informed consent, the procedure was undertaken. Coronary angiography revealed only minimal luminal irregularities consistent with mild CAD. Overall left ventricular systolic ejection fraction was normal. Likely type II non-ST elevation myocardial infarction. Start on aspirin. Beta-blockers for her SVT. Check lipid profile. (2) Supraventricular tachycardia: PLAN: Start low-dose beta-blockers. Check her D-dimers. Patient will need evaluation by electrophysiology as outpatient for possible SVT ablation. (3) DM II (diabetes mellitus, type II), controlled: PLAN: As per internal medicine. HPI Consult Data Date of Consult: 07/11/22 HPI Narrative Reason for Consultation: SVT/non-ST elevation [place] HPI Narrative: URIEL LEES, is a 67 F who presented to the emergency room with complaints of palpitations. According to her, she has had previously had SVT diagnosed about 8 years ago and then earlier this year as well. Her rhythm showed SVT. This was successfully terminated with adenosine. In the emergency room, her EKG showed normal sinus rhythm. Failed to show any ischemic changes. However her second and third set of troponins were markedly elevated. Subsequently she was admitted with a diagnosis of non-ST elevation [place]. Per patient, she had anterior chest discomfort with some left arm tingling with her episode of SVT. Denies any previous history of coronary artery disease. No history of rest or exertional angina prior to this. [facility]LY [facility] Medical History Alcohol use Arthritis Diabetes History of echocardiogram Hypertension PONV (postoperative nausea and vomiting) Wears glasses Home Medications losartan 25 mg tablet 25 mg PO QHS BLOOD PRESSURE 04/18/17 [History Last Taken 07/09/22] metformin 500 mg tablet 500 mg PO BIDCM DM 04/18/17 [History Last Taken 07/10/22] zolpidem 12.5 mg tablet,extended release,multiphase (Ambien CR) 12.5 mg PO QHS PRN Insomnia 11/17/17 [History Last Taken 07/09/22] estradiol 0.01% (0.1 mg/gram) vaginal cream 0.1 applic vaginal SUWE 07/16/21 [History Last Taken 07/09/22] apple cider vinegar 300 mg tablet 300 mg PO BID SUPPLEMENT 07/10/22 [History Last Taken 07/10/22] aspirin 81 mg tablet,delayed release 81 mg PO DAILY HEART HEALTH 07/10/22 [History Last Taken 07/09/22] Allergy/AdvReac Type Severity Reaction Status Date / Time prednisone Allergy Other Verified 07/10/22 11:25 codeine AdvReac Vomiting Verified 07/10/22 11:25 Family History Mother Breast cancer Father Bladder cancer metastasized to liver Bladder cancer Prostate cancer Surgical History H/O: hysterectomy History of bladder surgery History of Status post total right knee replacement Social History current occupational status: retired Smoking Status: Former smoker alcohol intake: current alcohol intake frequency: a few times a week Alcohol type: wine substance use type: does not use caffeine: Yes what type of physical activity do you participate in: aerobics frequency: 3-4 times per week seatbelt use: always do you feel safe at home: Yes additional social history: -Gurjit- GMI Physical Exam Narrative No JVD. No carotid bruits. Heart sounds 1 and 2 are normal. No murmurs or rubs are noted. Chest is clear to auscultation bilaterally. Abdomen is soft bowel sounds positive. Alert oriented x3. No ankle edema noted. Risk Stratification Risk Stratification Applicable: No Objective Data Vital Signs: Vital Signs Temp Pulse Resp BP Pulse Ox O2 Del Method 98.3 F 72 16 133/62 H 97 Room Air 07/11/22 09:29 07/11/22 09:35 07/11/22 09:29 07/11/22 09:35 07/11/22 09:29 07/11/22 09:29 Oxygen Delivery Method Room Air Weight: 147 lb 11.355 oz Body Mass Index (BMI) 27.1 Intake & Output: Intake and Output for Last 24 Hours 07/09/22 07/10/22 07/11/22 23:59 23:59 23:59 Intake Total 240 / 240 140.62 / 140.62 Balance 240 / 240 140.62 / 140.62 Lab / Micro Data Result Diagrams: 07/11/22 05:44 07/11/22 05:44 Labs: Laboratory Results - last 24 hr 07/10/22 11:00: WBC 9.0, RBC 4.37, Hgb 12.1, Hct 38.7, MCV 88.6, MCH 27.7, MCHC 31.3 L, RDW Std Deviation 45.9 H, RDW Coeff of Aries 14.2, Plt Count 291, MPV 10.2, Immature Gran % (Auto) 0.300, Neut % (Auto) 53.5, Lymph % (Auto) 28.3, Harlan % (Auto) 13.5 H, Eos % (Auto) 3.4, Baso % (Auto) 1.0, Absolute Neuts (auto) 4.8, Absolute Lymphs (auto) 2.55, Nucleated RBC % 0 07/10/22 11:00: Sodium 140, Potassium 3.9, Chloride 103, Carbon Dioxide 24.0, Anion Gap 13, BUN 16, Creatinine 0.88, Estim Creat Clear Calc 49.06, Est GFR (MDRD) Af Amer 82, Est GFR (MDRD) Non-Af 68, BUN/Creatinine Ratio 18.1, Glucose 212 H, Calcium 9.9, Troponin I High Sens 24, TSH 2.33 07/10/22 11:00: Hemoglobin A1c 6.8 H 07/10/22 13:10: Troponin I High Sens 1143 H* 07/10/22 13:10: Magnesium 2.2 07/10/22 17:17: POC Glucose 112 H 07/10/22 18:00: Troponin I High Sens 3065 H* 07/10/22 18:50: PT 12.7, INR 1.0, APTT 24.8 07/10/22 22:40: POC Glucose 115 H 07/11/22 02:17: APTT 51.5 H 07/11/22 05:44: WBC 4.5, RBC 3.91 L, Hgb 10.9 L, Hct 34.8 L, MCV 89.0, MCH 27.9, MCHC 31.3 L, RDW Std Deviation 46.4 H, RDW Coeff of Aries 14.4, Plt Count 179, MPV 9.7, Immature Gran % (Auto) 0.200, Neut % (Auto) 33.5 L, Lymph % (Auto) 46.6 H, Harlan % (Auto) 11.5 H, Eos % (Auto) 6.9 H, Baso % (Auto) 1.3 H, Absolute Neuts (auto) 1.5 L, Absolute Lymphs (auto) 2.10, Nucleated RBC % 0 07/11/22 05:44: Sodium 142, Potassium 4.5, Chloride 106, Carbon Dioxide 31.0, Anion Gap 5, BUN 12, Creatinine 0.75, Estim Creat Clear Calc 43.18, Est GFR (MDRD) Af Amer 99, Est GFR (MDRD) Non-Af 82, BUN/Creatinine Ratio 16.0, Glucose 137 H, Calcium 9.0, Total Bilirubin 0.90, AST 32, ALT 36, Alkaline Phosphatase 100, Total Protein 6.6, Albumin 3.3, Globulin 3.3, Albumin/Globulin Ratio 1.0, Triglycerides 71, Cholesterol 177, LDL Cholesterol 99, VLDL Cholesterol 14, HDL Cholesterol 64 07/11/22 06:19: POC Glucose 149 H 07/11/22 08:58: APTT 62.2 H Rhythm Strip Rhythm Strip: Sinus Rhythm Rate: 98 Ectopy: None Cardiology Labs/Tests 07/10/22 11:00: WBC 9.0, RBC 4.37, Hgb 12.1, Hct 38.7, MCV 88.6, MCH 27.7, MCHC 31.3 L, Plt Count 291, MPV 10.2, Immature Gran % (Auto) 0.300, Neut % (Auto) 53.5, Lymph % (Auto) 28.3, Harlan % (Auto) 13.5 H, Eos % (Auto) 3.4, Baso % (Auto) 1.0, Absolute Neuts (auto) 4.8, Nucleated RBC % 0 07/10/22 11:00: Sodium 140, Potassium 3.9, Chloride 103, Carbon Dioxide 24.0, Anion Gap 13, BUN 16, Creatinine 0.88, Est GFR (MDRD) Af Amer 82, Est GFR (MDRD) Non-Af 68, BUN/Creatinine Ratio 18.1, Glucose 212 H, Calcium 9.9 07/10/22 11:00: Hemoglobin A1c 6.8 H 07/10/22 13:10: Magnesium 2.2 07/10/22 18:50: PT 12.7, INR 1.0, APTT 24.8 07/11/22 02:17: APTT 51.5 H 07/11/22 05:44: WBC 4.5, RBC 3.91 L, Hgb 10.9 L, Hct 34.8 L, MCV 89.0, MCH 27.9, MCHC 31.3 L, Plt Count 179, MPV 9.7, Immature Gran % (Auto) 0.200, Neut % (Auto) 33.5 L, Lymph % (Auto) 46.6 H, Harlan % (Auto) 11.5 H, Eos % (Auto) 6.9 H, Baso % (Auto) 1.3 H, Absolute Neuts (auto) 1.5 L, Nucleated RBC % 0 07/11/22 05:44: Sodium 142, Potassium 4.5, Chloride 106, Carbon Dioxide 31.0, Anion Gap 5, BUN 12, Creatinine 0.75, Est GFR (MDRD) Af Amer 99, Est GFR (MDRD) Non-Af 82, BUN/Creatinine Ratio 16.0, Glucose 137 H, Calcium 9.0, Total Bilirubin 0.90, Triglycerides 71, Cholesterol 177, LDL Cholesterol 99, VLDL Cholesterol 14, HDL Cholesterol 64 07/11/22 08:58: APTT 62.2 H Rhythm: EKG: ECHO: Stress Test: Cardiac Cath: PCI: CT Surgery: Holter monitor: EPS: PPM: CXR: Chest CT Scan: Radiography Diagnostic Testing: Radiology Impression Chest X-Ray 07/10/22 12:35 IMPRESSION: No acute abnormalities. Stable examination. Electronically Signed: Shahriar Dutta MD at 12:51 EDT ,
[2022-07-11 12:35] LABS: D-Dimer Quantitative (DVT/PE) 0.36 FEU/ug/m (0.27-0.49)
[2022-07-11 13:06] LABS: Bedside Glucose 89 mg/dL (74-106)
--- NOTE | 2022-07-11 13:31 | NURSING ---
Pt sent to [facility] with heparin gtt running. Pt returned from [facility] without heparin gtt running and order for gtt d/c'd. Unsure of time stopped in [facility], MAR updated to time pt returned to floor.
--- NOTE | 2022-07-11 13:53 | PCM.DC ---
Discharge Instructions Diet Discharge Diet: Low fat / Low cholesterol and 2000 mg Sodium Diet Activity Discharge Activity: Return to Normal Activity Follow Up Care Test Results: Test results from this visit will be discussed in further detail at your follow-up appointment, if applicable. Discharge Plan Admission Admit Date/Time: 07/10/22 15:52 Primary Reason for Your Visit: SVT Attending Provider: Cassidy Martin Primary Care Provider: Tess Morataya Consulting Providers: Georgina Forde Instructions Additional Instructions / Restrictions: Take note of changes to your medications Your losartan has been stopped for now Take your blood pressure readings every day and show a log of it to primary care doctor Follow-up with cardiology within 2 weeks Discharge Orders/Prescriptions Prescriptions: New atorvastatin 40 mg Tablet 40 mg PO QHS 30 Days Qty: 30 0RF metoprolol tartrate 25 mg Tablet 25 mg PO BID 30 Days Qty: 60 0RF Continued zolpidem [Ambien CR] 12.5 mg tablet,ext release multiphase 12.5 mg PO QHS PRN (Reason: Insomnia) estradiol 0.01 % (0.1 mg/gram) cream 0.1 applic vaginal SUWE Rx Instructions: compounded at [facility]-small amount twice a week metformin 500 MG tablet 500 mg PO BIDCM aspirin 81 mg Tablet,Delayed Release (Dr/Ec) 81 mg PO DAILY apple cider vinegar 300 mg Tablet 300 mg PO BID Discontinued losartan 25 MG tablet 25 mg PO QHS Referrals / Follow Up: Georgina Forde MD [Med Staff - Active Staff] - Within 2 Weeks Tess Morataya DO [Primary Care Provider] - In 1 Week Disposition Disposition (needs filled in before D/C Order can be placed): Home, Self Care
--- NOTE | 2022-07-11 14:05 | DS.PCM_ITS ---
Providers Date of Admission: 07/10/22 Date of Discharge: 07/11/22 Primary Care Physician: Dr. Tess Morataya, Consultations 07/10/22 18:38 Consult: Cardiology Routine Consulting Provider: Georgina Forde Reason for Consult: SVT, elevated troponins EMERGENT Consult: No MD Notified: Yes Date Notified: 07/10/22 Time Notified: 18:38 Method of Notification: MD to MD Reason For Visit: NSTEMI/SVT Diagnosis Discharge Diagnosis (1) Non-ST elevated myocardial infarction: Status: Acute Code(s): I21.4 - Non-ST elevation (NSTEMI) myocardial infarction (2) Supraventricular tachycardia: Status: Chronic Code(s): I47.1 - Supraventricular tachycardia (3) DM II (diabetes mellitus, type II), controlled: Status: Acute Code(s): E11.9 - Type 2 diabetes mellitus without complications Medications at Discharge Home Medications metformin 500 mg tablet 500 mg PO BIDCM DM 04/18/17 zolpidem 12.5 mg tablet,extended release,multiphase (Ambien CR) 12.5 mg PO QHS PRN Insomnia 11/17/17 estradiol 0.01% (0.1 mg/gram) vaginal cream 0.1 applic vaginal SUWE 07/16/21 apple cider vinegar 300 mg tablet 300 mg PO BID SUPPLEMENT 07/10/22 aspirin 81 mg tablet,delayed release 81 mg PO DAILY HEART HEALTH 07/10/22 atorvastatin 40 mg tablet 40 mg PO QHS 30 days #30 tabs 07/11/22 metoprolol tartrate 25 mg tablet 25 mg PO BID 30 days #60 tabs 07/11/22 Hospital Course Operations None Procedures Cardiac catheterization Summary of Care Provided Minutes Spent on Discharge: 35 Hospital Course: 57-year-old female with past medical history of SVT, who presented with palpitations that started on the morning of admission and lasted for more than 2 hours. The EMS was called, SVT was found on telemetry strip. Patient was given 6 mg of IV adenosine on route and she converted to normal sinus rhythm. Patient also complained of chest discomfort at time of palpitation. This was localized in the substernal region, radiated to the neck and arm and was associated with diaphoresis, slight dizziness and difficulty hearing. Patient presented to the emergency room, she was in normal sinus rhythm. Initial troponin was 24, repeat troponin was 1143. She was admitted to the progressive care unit and monitored on telemetry with no acute event. Her TSH was normal. Magnesium was normal. Cardiology was consulted from the ED. Patient underwent cardiac cath and patient had unremarkable coronary arteries. She was started on metoprolol. Losartan was discontinued. She was also started on statin. D-dimer was normal. Patient will follow-up with her primary care doctor within 1 week. She will follow up with cardiology within 2 to 4 weeks. Physical Exam Narrative General: Alert, Oriented x3, Cooperative, No apparent distress HEENT: Atraumatic, PERRLA, EOMI, Normocephalic Oral: Moist Mucosa Neck: Supple Lungs: Normal air movement, Diminished Cardiovascular: Regular rate, Regular Rhythm, Normal S1, Normal S2, No murmurs Abdomen: Bowel Sounds Present, Soft, Non Tender, Non-Distended, No Hepato- splenomegaly Extremities: No edema Skin: No rashes Neurological: Cranial nerves II-XII grossly intact, Neuro grossly intact Psych/Mental Status: Normal Affect, Appropriate Weight / BMI Weight Weight: 67 kg Body Mass Index (BMI) 27.1 ABG / Lab / Microbiology Data Result Diagrams: 07/11/22 05:44 07/11/22 05:44 Laboratory: Laboratory Results - last 24 hr 07/10/22 11:00: Hemoglobin A1c 6.8 H 07/10/22 13:10: Troponin I High Sens 1143 H* 07/10/22 13:10: Magnesium 2.2 07/10/22 17:17: POC Glucose 112 H 07/10/22 18:00: Troponin I High Sens 3065 H* 07/10/22 18:50: PT 12.7, INR 1.0, APTT 24.8 07/10/22 22:40: POC Glucose 115 H 07/11/22 02:17: APTT 51.5 H 07/11/22 05:44: WBC 4.5, RBC 3.91 L, Hgb 10.9 L, Hct 34.8 L, MCV 89.0, MCH 27.9, MCHC 31.3 L, RDW Std Deviation 46.4 H, RDW Coeff of Aries 14.4, Plt Count 179, MPV 9.7, Immature Gran % (Auto) 0.200, Neut % (Auto) 33.5 L, Lymph % (Auto) 46.6 H, [place] % (Auto) 11.5 H, Eos % (Auto) 6.9 H, Baso % (Auto) 1.3 H, Absolute Neuts (auto) 1.5 L, Absolute Lymphs (auto) 2.10, Nucleated RBC % 0 07/11/22 05:44: Sodium 142, Potassium 4.5, Chloride 106, Carbon Dioxide 31.0, Anion Gap 5, BUN 12, Creatinine 0.75, Estim Creat Clear Calc 43.18, Est GFR (MDRD) Af Amer 99, Est GFR (MDRD) Non-Af 82, BUN/Creatinine Ratio 16.0, Glucose 137 H, Calcium 9.0, Total Bilirubin 0.90, AST 32, ALT 36, Alkaline Phosphatase 100, Total Protein 6.6, Albumin 3.3, Globulin 3.3, Albumin/Globulin Ratio 1.0, Triglycerides 71, Cholesterol 177, LDL Cholesterol 99, VLDL Cholesterol 14, HDL Cholesterol 64 07/11/22 06:19: POC Glucose 149 H 07/11/22 08:58: APTT 62.2 H 07/11/22 08:58: D-Dimer Quant (PE/DVT) 0.36 07/11/22 12:30: POC Glucose 89 D/C Instructions Discharge Diet: Low fat / Low cholesterol and 2000 mg Sodium Diet Meaningful Use Info Meaningful Use Diagnoses (Choose all that apply): None applicable Discharge Plan Admission Admit Date/Time: 07/10/22 15:52 Primary Reason for Your Visit: SVT Attending Provider: Cassidy Martin Primary Care Provider: Tess Morataya Consulting Providers: Georgina Forde Instructions Additional Instructions / Restrictions: Take note of changes to your medications Your losartan has been stopped for now Take your blood pressure readings every day and show a log of it to primary care doctor Follow-up with cardiology within 2 weeks Discharge Orders/Prescriptions Prescriptions: New atorvastatin 40 mg Tablet 40 mg PO QHS 30 Days Qty: 30 0RF metoprolol tartrate 25 mg Tablet 25 mg PO BID 30 Days Qty: 60 0RF Continued zolpidem [Ambien CR] 12.5 mg tablet,ext release multiphase 12.5 mg PO QHS PRN (Reason: Insomnia) estradiol 0.01 % (0.1 mg/gram) cream 0.1 applic vaginal SUWE Rx Instructions: compounded at [facility]-small amount twice a week metformin 500 MG tablet 500 mg PO BIDCM aspirin 81 mg Tablet,Delayed Release (Dr/Ec) 81 mg PO DAILY apple cider vinegar 300 mg Tablet 300 mg PO BID Discontinued losartan 25 MG tablet 25 mg PO QHS Referrals / Follow Up: Georgina Forde MD [Med Staff - Active Staff] - Within 2 Weeks Tess Morataya DO [Primary Care Provider] - In 1 Week Disposition Disposition (needs filled in before D/C Order can be placed): Home, Self Care Charges/Coding Visit Charges Inpatient E&M: 75591 Disch Hosp
[2022-07-11] MEDS: FLU VACC QS2022-23(6MOS UP)/PF 60 MCG/0.5 ML SYRINGE IM (16:46)
== END 2022-07-11 17:13 | disposition home or self-care (01) | DRG 282 ==
LOC: ED 14:17 → PCU 16:36
PROVIDERS: Internal Medicine Cardiovascular Disease; Admitting Provider Internal Medicine; Emergency Provider Emergency Medicine; PCP Family Medicine; Visit Provider Internal Medicine
DX: I47.1 Supraventricular tachycardia (principal); I21.A1 Myocardial infarction type 2; E11.9 Type 2 diabetes mellitus without complications; I10 Essential (primary) hypertension; I25.10 Atherosclerotic heart disease of native coronary artery without angina pectoris; Z79.84 Long term (current) use of oral hypoglycemic drugs; Z87.891 Personal history of nicotine dependence; Z79.82 Long term (current) use of aspirin; Z23 Encounter for immunization
CPT/HCPCS: 36415; 71045; 80048; 80053; 80061; 82962; 83036; 83735; 84443; 84484; 85025; 85379; 85610; 85730; 93005; 93458; 99152; 99285; G0008; J7040; Q9967; 90686; A4216; C1769; C1894

== ENCOUNTER → 2022-09-02 | Outpatient (CLI) | payer MEDICARE, OTHER, SELFPAY ==
[2022-09-02 12:30] LABS: Absolute Lymphocyte Count 1.33 X10^3/uL (0.83-4.51); Absolute Neutrophil Count 2.5 X10^3/uL (2.0-7.7); Basophil# 0.04 X10^3/uL; Basophil% 0.9 % (0-1); Eosinophil# 0.19 X10^3/uL; Eosinophils% 4.2 % (0-5); Hematocrit 40.2 % (37-47); Hemoglobin 12.5 g/dL (12.0-15.0); Lymphocyte # 1.33 X10^3/ul (0.83-4.51); Lymphocyte % 29.4 % (19-41); Mean Corp Hgb Conc 31.1 g/dL (32-36); Mean Corpuscular Hgb 27.6 pg (27.0-32.0); Mean Corpuscular Volume 88.7 fL (81-99); Mean Platelet Vol. 10.7 fl (6.2-12.0); Monocyte# 0.44 X10^3/uL; Monocyte% 9.7 % (0-10); NRBC Flagged by Analyzer 0 % (0-5); Neutrophil # 2.52 X10^3/uL (2.7-7.7); Neutrophil % 55.6 % (47-70); Platelet Count 246 K/mm3 (150-450); RBC Distribution Width CV 14.1 % (11.6-14.6); RBC Distribution Width SD 45.7 fl (35.1-43.9); Red Blood Count 4.53 M/mm3 (4.2-5.4); White Blood Count 4.5 K/mm3 (4.4-11.0)
[2022-09-02 12:49] LABS: Vitamin B12 364 pg/mL (211-911)
[2022-09-02 12:56] LABS: AST(SGOT) 20 U/L (15-37); Alanine Aminotransfer ALT/SGPT 29 U/L (13-56); Albumin, Serum 3.8 g/dL (3.2-5.0); Alkaline Phosphatase 103 U/L (45-117); Anion Gap 6 (5-15); BUN 11 mg/dL (7-18); BUN/Creat Ratio 18.2 RATIO (10-20); Calcium,Total 9.1 mg/dL (8.5-10.1); Chloride 104 mmol/L (98-107); EST Glomerular Filtration Rate 105 mL/min (>60); Est Glom Filt Rate - Afr Amer 127 mL/min (>60); Ferritin 8 ng/mL (8-252); Globulin 3.8 g/dL (2.2-4.2); Glucose 156 mg/dL (74-106); Iron 66 ug/dL (50-170); Potassium 4.4 mmol/L (3.5-5.1); Protein, Total 7.6 g/dL (6.4-8.2); Sodium Level 138 mmol/L (136-145)
== END | disposition home or self-care (01) ==
LOC: BFHLAB 08:43
PROVIDERS: PCP Family Medicine; Visit Provider Family Medicine
DX: D64.9 Anemia, unspecified (principal); R20.2 Paresthesia of skin
CPT/HCPCS: 36415; 80053; 82607; 82728; 83540; 85025

== ENCOUNTER 2022-09-15 20:02 | Emergency (ER) | payer MEDICARE, OTHER, SELFPAY ==
[2022-09-15 20:02] VITALS: BP 122/83; PULSE 96; RESP 15; TEMP 37.2; O2SAT 97; BMI 28.3
[2022-09-15 21:17] LABS: Absolute Lymphocyte Count 1.11 X10^3/uL (0.83-4.51); Absolute Neutrophil Count 6.6 X10^3/uL (2.0-7.7); Basophil# 0.04 X10^3/uL; Basophil% 0.4 % (0-1); Eosinophil# 0.18 X10^3/uL; Hematocrit 44.5 % (37-47); Hemoglobin 14.3 g/dL (12.0-15.0); Lymphocyte # 1.11 X10^3/ul (0.83-4.51); Lymphocyte % 12.4 % (19-41); Mean Corp Hgb Conc 32.1 g/dL (32-36); Mean Corpuscular Volume 87.1 fL (81-99); Mean Platelet Vol. 9.6 fl (6.2-12.0); Monocyte# 0.96 X10^3/uL; Monocyte% 10.8 % (0-10); NRBC Flagged by Analyzer 0 % (0-5); Neutrophil # 6.57 X10^3/uL (2.7-7.7); Neutrophil % 73.7 % (47-70); Platelet Count 273 K/mm3 (150-450); RBC Distribution Width CV 14.6 % (11.6-14.6); RBC Distribution Width SD 46.5 fl (35.1-43.9); Red Blood Count 5.11 M/mm3 (4.2-5.4); White Blood Count 8.9 K/mm3 (4.4-11.0)
[2022-09-15 21:34] LABS: Anion Gap 8 (5-15); BUN 19 mg/dL (7-18); Calcium,Total 9.4 mg/dL (8.5-10.1); Chloride 104 mmol/L (98-107); Creatinine, Serum 0.79 mg/dL (0.55-1.02); EST Glomerular Filtration Rate 77 mL/min (>60); Est Glom Filt Rate - Afr Amer 93 mL/min (>60); Estimated Creatinine Clearance 41.19 ml/min; Glucose 254 mg/dL (74-106); Potassium 4.2 mmol/L (3.5-5.1); Sodium Level 137 mmol/L (136-145)
[2022-09-15 22:10] VITALS: BP 130/90; PULSE 93; RESP 12; O2SAT 97
[2022-09-15 23:06] LABS: Lipase 129 U/L (73-393)
[2022-09-15] MEDS: 0.9% Normal Saline 1,000 ML 999 ML IV (23:09)
[2022-09-15] MEDS: Ondansetron 4 MG/2 ML Vial IV (23:09)
[2022-09-15] MEDS: Dicyclomine 20 MG/2 ML Vial IM (23:11)
[2022-09-15 23:19] LABS: Mucous, Urine 0 SEEN /hpf (<or=2+); Red Blood Cells-Urine 0 SEEN /hpf (0-5)
[2022-09-15 23:22] LABS: Color, Urine Yellow (Yellow); Glucose, Dipstick Normal (Normal); Ketone-Dipstick 15 mg/dl (Negative); Leukocyte Esterase-Dipstick 25 /ul (Negative); Nitrite-Dipstick Negative (Negative); Occult Blood-Urine Negative /ul (Negative); Protein-Dipstick 15 mg/dl (Negative); Specific Gravity, Urine 1.025 (1.002-1.030); Urine Bilirubin Dipstick Negative (Negative); Urine Clarity Clear (Clear); Urine Urobilinogen Normal (Normal)
[2022-09-15 23:30] LABS: Bacteria 1+ /hpf (None Seen); Hyaline Cast 10-25 SEEN /lpf (0-5); Squamous Epithelial Cells - UA 10-25 SEEN /hpf (5-10); White Blood Cells 0-5 SEEN /hpf (0-5)
[2022-09-16 00:23] VITALS: BP 130/90; PULSE 91; RESP 15; O2SAT 94
--- NOTE | 2022-09-16 00:55 | EDS_ITS ---
HPI History of Present Illness Chief Complaint: Nausea/Vomiting Narrative Narrative: Patient is a 67-year-old female with past medical history of type 2 diabetes. She states that today she began with a feeling of upset stomach and had 2-3 bouts of vomiting. She denies any loose stool or diarrhea associated with this and she denies any fevers or known sick contacts. She states she is concerned she may have picked up flu or COVID with her symptoms and secondary to this presents for evaluation [facility] Medical History (Updated 09/16/22 @ 03:[address] Antoine Tran, ) Alcohol use Arthritis Diabetes History of echocardiogram Hypertension Myocardial infarct PONV (postoperative nausea and vomiting) Wears glasses Home Medications metformin 500 mg tablet 500 mg PO BIDCM DM 04/18/17 [History Last Taken 07/10/22] zolpidem 12.5 mg tablet,extended release,multiphase (Ambien CR) 12.5 mg PO QHS PRN Insomnia 11/17/17 [History Last Taken 07/09/22] estradiol 0.01% (0.1 mg/gram) vaginal cream 0.1 applic vaginal SUWE 07/16/21 [History Last Taken 07/09/22] aspirin 81 mg tablet,delayed release 81 mg PO DAILY HEART HEALTH 07/10/22 [History Last Taken 07/09/22] atorvastatin 40 mg tablet 40 mg PO QHS 30 days #90 tabs 08/06/22 [Rx Last Taken Unknown] amlodipine 5 mg tablet 5 mg PO DAILY #30 tabs 08/07/22 [Rx Last Taken Unknown] carvedilol 6.25 mg tablet 6.25 mg PO BID #60 tabs 08/14/22 [Rx Last Taken Unknown] dicyclomine 20 mg tablet 20 mg PO 4X/DAY PRN PRN Abdominal bloating/spasm #28 tabs 09/16/22 [Rx Last Taken Unknown] ondansetron 4 mg disintegrating tablet 4 mg PO TID PRN nausea and vomiting #21 tabs 09/16/22 [Rx Last Taken Unknown] Allergy/AdvReac Type Severity Reaction Status Date / Time prednisone Allergy Other Verified 09/15/22 20:07 codeine AdvReac Vomiting Verified 09/15/22 20:07 Family History Mother Breast cancer Father Bladder cancer metastasized to liver Bladder cancer Prostate cancer Surgical History H/O: hysterectomy History of bladder surgery History of History of left heart catheterization (07/11/22) Status post total right knee replacement Social History current occupational status: retired Smoking Status: Former smoker alcohol intake: current alcohol intake frequency: a few times a week Alcohol type: wine substance use type: does not use caffeine: Yes Type: coffee Number of servings: 3 what type of physical activity do you participate in: aerobics frequency: 3-4 times per week seatbelt use: always do you feel safe at home: Yes additional social history: -Gurjit- GMI ROS ROS ED Constitutional Constitutional ED: Denies chills or fever(s) ENT ENT ED: Denies sore throat Cardiovascular Cardiovascular: Denies chest pain Respiratory/Chest Respiratory/Chest: Denies cough or dyspnea Gastrointestinal Gastrointestinal: Reports abdominal pain, nausea and vomiting; Denies diarrhea Genitourinary Genitourinary ED: Denies dysuria Musculoskeletal Musculoskeletal: Reports myalgias Integumentary Denies rash Neurologic Neurologic: Denies headache(s) Hematologic/Lymphatic Hematologic/Lymphatic: Denies easy bleeding or easy bruising EXAM Physical Exam Const Vital Signs: 09/15/22 20:02 09/15/22 22:10 09/16/22 00:23 Temperature 98.9 F Temperature Source Temporal Pulse Rate 96 93 91 Respiratory Rate 15 12 15 Blood Pressure 122/83 H 130/90 H 130/90 H Blood Pressure Mean 96 103 103 Pulse Ox 97 97 94 Oxygen Delivery Method Room Air Room Air Room Air 09/16/22 01:02 Temperature Temperature Source Pulse Rate 93 Respiratory Rate 21 H Blood Pressure 124/73 H Blood Pressure Mean Pulse Ox 94 Oxygen Delivery Method Positive well nourished and well developed General Appearance ED: well developed HEENT HEENT Narrative: Mucous membranes are slightly dry and tacky but there are no oral lesions no airway edema or compromise present Eyes PERRL and EOMs intact bilaterally General Eye ED: Negative for scleral icterus Neck supple Resp normal respiratory effort and clear to auscultation bilaterally Cardio regular rate and regular rhythm Rate: other Other Details: Radial pulses are +2-4 bilaterally are equal and symmetric GI non-tender and non-distended GI Narrative: Abdomen is soft nontender and nondistended with hyperactive bowel sounds. No voluntary guarding or rigidity. No pulsatile mass or fluid wave. No increased tympany noted Auscultation: hyperactive bowel sounds Palpation: soft Extremity normal to inspection Neuro oriented x3 and CN's II-XII intact bilaterally Sensorium / Orientation: alert Psych mental status grossly normal Skin no rashes or lesions noted Skin Narrative: Skin turgor is slightly increased General Skin Exam: Negative for jaundice MDM MDM MDM Narrative Medical decision making narrative: Patient presented to the ER afebrile with stable vitals and a soft nonsurgical abdomen. Her constellation of symptoms is most consistent with a viral stomach infection. However was concerned this could be atypical COVID or influenza viral swabs as well as basic labs were obtained. Labs revealed no clinically significant findings. Viral swabs are negative. Patient was given IV hydration and Zofran and Bentyl and had no further episodes of vomiting and reported improvement of symptoms. On reevaluation her abdomen remains soft and nonsurgical. Therefore at this time with improvement of symptoms after treatment and work-up revealing no acute findings such as severe electrolyte derangement or acute kidney injury patient can be discharged home with symptomatic medications The patient is urine stable did show +1 bacteria but is grossly contaminated with skin cells and she does not have any urinary symptoms therefore do not feel there is need to treat this Lab Data Attestation: I reviewed the patient's lab results. Labs: Laboratory Results - last 24 hr 09/15/22 09/15/22 09/15/22 21:14 21:14 21:14 WBC 8.9 RBC 5.11 Hgb 14.3 Hct 44.5 MCV 87.1 MCH 28.0 MCHC 32.1 RDW Std Deviation 46.5 H RDW Coeff of Aries 14.6 Plt Count 273 MPV 9.6 Immature Gran % (Auto) 0.700 Neut % (Auto) 73.7 H Lymph % (Auto) 12.4 L [place] % (Auto) 10.8 H Eos % (Auto) 2.0 Baso % (Auto) 0.4 Absolute Neuts (auto) 6.6 Absolute Lymphs (auto) 1.11 Nucleated RBC % 0 Sodium 137 Potassium 4.2 Chloride 104 Carbon Dioxide 25.0 Anion Gap 8 BUN 19 H Creatinine 0.79 Estim Creat Clear Calc 41.19 Est GFR (MDRD) Af Amer 93 Est GFR (MDRD) Non-Af 77 BUN/Creatinine Ratio 24.0 H Glucose 254 H Calcium 9.4 Lipase 129 Urine Color Urine Clarity Urine pH Ur Specific [place] Urine Protein Urine Glucose (UA) Urine Ketones Urine Occult Blood Urine Nitrite Urine Bilirubin Urine Urobilinogen Ur Leukocyte Esterase Urine RBC Urine WBC Ur Squamous Epith Cells Urine Bacteria Hyaline Casts Urine Mucus 09/15/22 23:14 WBC RBC Hgb Hct MCV MCH MCHC RDW Std Deviation RDW Coeff of Aries Plt Count MPV Immature Gran % (Auto) Neut % (Auto) Lymph % (Auto) [place] % (Auto) Eos % (Auto) Baso % (Auto) Absolute Neuts (auto) Absolute Lymphs (auto) Nucleated RBC % Sodium Potassium Chloride Carbon Dioxide Anion Gap BUN Creatinine Estim Creat Clear Calc Est GFR (MDRD) Af Amer Est GFR (MDRD) Non-Af BUN/Creatinine Ratio Glucose Calcium Lipase Urine Color Yellow Urine Clarity Clear Urine pH 5.0 Ur Specific [place] 1.025 Urine Protein 15 H Urine Glucose (UA) Normal Urine Ketones 15 H Urine Occult Blood Negative Urine Nitrite Negative Urine Bilirubin Negative Urine Urobilinogen Normal Ur Leukocyte Esterase 25 H Urine RBC 0 SEEN Urine WBC 0-5 SEEN Ur Squamous Epith Cells 10-25 SEEN Urine Bacteria 1+ Hyaline Casts 10-25 SEEN Urine Mucus 0 SEEN Discharge Plan Triage Chief Complaint: Nausea/Vomiting ED Provider: Antoine Tran Dx/Rx/DC Orders Clinical Impression: Nausea & vomiting, Mild dehydration, DM II (diabetes mellitus, type II), controlled Instructions: ED Dehydration (Adult), ED Gastroenteritis, Viral (Adult) Prescriptions: New ondansetron 4 mg tablet,disintegrating 4 mg PO TID PRN (Reason: nausea and vomiting) Qty: 21 0RF dicyclomine 20 mg tablet 20 mg PO 4X/DAY PRN PRN (Reason: Abdominal bloating/spasm) Qty: 28 0RF No Action zolpidem [Ambien CR] 12.5 mg tablet,ext release multiphase 12.5 mg PO QHS PRN (Reason: Insomnia) estradiol 0.01 % (0.1 mg/gram) cream 0.1 applic vaginal SUWE Rx Instructions: compounded at [facility]-small amount twice a week metformin 500 MG tablet 500 mg PO BIDCM aspirin 81 mg Tablet,Delayed Release (Dr/Ec) 81 mg PO DAILY atorvastatin 40 mg tablet 40 mg PO QHS 30 Days Qty: 90 3RF amlodipine 5 mg tablet 5 mg PO DAILY Qty: 30 11RF carvedilol 6.25 mg tablet 6.25 mg PO BID Qty: 60 12RF Rx Instructions: must administer with a meal/food Primary Care Provider: Tess Morataya Referrals: Tess Morataya DO [Primary Care Provider] - Activity Restrictions/Additional Instructions: Your work-up today indicates you have a viral stomach infection which can last anywhere from 24 hours to 1 week with the average being 3 days. Keep yourself well-hydrated and use the prescribed medication as directed to control your symptoms. If you have worsening of symptoms or any further concerns please return for repeat evaluation Disposition Disposition: Home, Self Care Discharge Date/Time: 09/16/22 01:05
[2022-09-16 01:02] VITALS: BP 124/73; PULSE 93; RESP 21; O2SAT 94
== END 2022-09-16 01:05 | disposition home or self-care (01) ==
PROVIDERS: Emergency Provider Emergency Medicine; PCP Family Medicine; Visit Provider Emergency Medicine
DX: R11.2 Nausea with vomiting, unspecified (principal); E11.9 Type 2 diabetes mellitus without complications; E86.0 Dehydration; I10 Essential (primary) hypertension; Z20.822 Contact with and (suspected) exposure to COVID-19; Z87.891 Personal history of nicotine dependence
CPT/HCPCS: 80048; 81001; 83690; 85025; 87428; 96361; 96372; 96374; 99283; J7030; A4216; J2405

== ENCOUNTER → 2022-12-01 | Outpatient (CLI) | payer MEDICARE, OTHER, SELFPAY ==
--- NOTE | 2022-12-01 14:43 | ECHOD_ITS ---
Reason For Study: SVT Procedure This was a 2D Doppler, Color Flow transthoracic echocardiogram. Exam performed in department. Left Ventricle Normal left ventricle. The left ventricular ejection fraction is 65 %. Normal diastololic function. Right Ventricle Normal right ventricle. Atria The left and right atria are normal. Mitral Valve Mild diffuse mitral valve thickening. Tricuspid Valve Normal tricuspid valve. Aortic Valve Trisinus/trileaflet aortic valve. Trivial aortic valve insufficiency. Pulmonic Valve The pulmonic valve is not well visualized. Great Vessels Normal sized aortic root. Pericardium/Pleural No pericardial effusion. MMode/2D Measurements & Calculations LVIDd: 4.5 cm IVSd: 0.96 cm Ao root diam: 2.7 cm LVIDs: 3.1 cm LVPWd: 0.85 cm RVDd: 3.3 cm FS: 30.1 % LAV(MOD-bp): 33.5 ml LVAd ap4: 27.0 cm2 SV(MOD-sp4): 53.6 ml LAV(MOD-bp) Indexed: 19.7 ml/m2 LVLd ap4: 7.4 cm LAV(MOD-sp2): 32.9 ml EDV(MOD-sp4): 79.9 ml LAV(MOD-sp4): 29.6 ml EDV(sp4-el): 84.2 ml LVAs ap4: 13.8 cm2 LVLs ap4: 6.1 cm ESV(MOD-sp4): 26.3 ml ESV(sp4-el): 26.5 ml EF(MOD-sp4): 67.1 % EF(sp4-el): 68.5 % SV(sp4-el): 57.7 ml LA A4 area: 13.0 cm2 LA dimension(2D): 3.2 cm RA A4 area: 12.6 cm2 Time Measurements MV dec time: 0.28 sec Doppler Measurements & Calculations MV E max camilo: 71.4 cm/sec Lat Peak E' Cam[place]: 11.2 cm/sec Med Peak E' [place]: 7.1 cm/sec MV A max camilo: 58.7 cm/sec E/E' lat: 6.4 E/E' med: 10.1 MV E/A: 1.2 Ao V2 max: 143.5 cm/sec LV V1 max: 90.2 cm/sec PA V2 max: 82.0 cm/sec Ao max P.2 mmHg LV V1 max P.3 mmHg ECHO/Echo Complete Interpretation Summary The left ventricular ejection fraction is 65 %. Mild diffuse mitral valve thickening. Ordering Physician: Slade Schulte/POOL Referring Physician: JORI LESTER Performed By: Renee Del Angel RDCS
== END | disposition home or self-care (01) ==
LOC: CVS 14:42
PROVIDERS: PCP Family Medicine; Referring Provider Nurse Practitioner Family; Visit Provider Nurse Practitioner Family
DX: I47.1 Supraventricular tachycardia (principal); I25.10 Atherosclerotic heart disease of native coronary artery without angina pectoris; I10 Essential (primary) hypertension
CPT/HCPCS: 93306

== ENCOUNTER 2022-12-11 05:27 | Emergency (ER) | payer MEDICARE, OTHER, SELFPAY ==
[2022-12-11 05:28] VITALS: BP 166/95; PULSE 77; RESP 20; TEMP 36.4; O2SAT 99; BMI 13.1
[2022-12-11] MEDS: Ondansetron 4 MG/2 ML Vial IV (05:54)
[2022-12-11] MEDS: Orphenadrine 60 MG/2 ML Ampul IV (05:55)
[2022-12-11] MEDS: Morphine 4 MG/ML Syringe IV (05:57)
[2022-12-11] MEDS: dexAMETHasone 10 MG/ML Vial IV (05:59)
[2022-12-11 07:20] LABS: Mucous, Urine 0 SEEN /hpf (<or=2+); Red Blood Cells-Urine 0 SEEN /hpf (0-5); White Blood Cells 0 SEEN /hpf (0-5)
[2022-12-11 07:54] LABS: Color, Urine Yellow (Yellow); Glucose, Dipstick 1000 mg/dl (Normal); Ketone-Dipstick 50 mg/dl (Negative); Leukocyte Esterase-Dipstick Negative /ul (Negative); Nitrite-Dipstick Negative (Negative); Occult Blood-Urine Negative /ul (Negative); Protein-Dipstick 30 mg/dl (Negative); Specific Gravity, Urine 1.015 (1.002-1.030); Urine Bilirubin Dipstick Negative (Negative); Urine Clarity Sl. Cloudy (Clear); Urine Urobilinogen Normal (Normal); Urine pH 6.5 (5.0 - 8.0)
[2022-12-11 08:11] LABS: Bacteria 1+ /hpf (None Seen); Squamous Epithelial Cells - UA 5-10 SEEN /hpf (5-10)
--- NOTE | 2022-12-11 08:35 | EX.ED.DYSGE1 ---
HPI History of Present Illness Chief Complaint: Flank Pain Narrative Narrative: Patient is a 67-year-old female with history of type 2 diabetes and hyperlipidemia as well as hypertension. She states throughout the week she has had times when her right-sided low back will catch and has been causing her some discomfort. She states there was no excessive activity or trauma however prior to the pain beginning. She states that there has been no loss of bowel or bladder control and she denies any IV drug use. She also states there is been no hematuria or dysuria. She reports she went to bed with some back pain last evening and then awoke around 1 this morning with right-sided low back pain that was not resolving with [id number] medications and therefore she comes in for evaluation. [facility] Medical History (Updated 12/11/22 @ 08:[address] Antoine Tran, ) Alcohol use Arthritis Diabetes History of echocardiogram Hypertension Myocardial infarct PONV (postoperative nausea and vomiting) Wears glasses Home Medications metformin 500 mg tablet 500 mg PO BIDCM DM 04/18/17 [History Last Taken 07/10/22] estradiol 0.01% (0.1 mg/gram) vaginal cream 0.1 applic vaginal SUWE 07/16/21 [History Last Taken 07/09/22] aspirin 81 mg tablet,delayed release 81 mg PO DAILY [facility]ART [facility] 07/10/22 [History Last Taken 07/09/22] amlodipine 5 mg tablet 5 mg PO DAILY #30 tabs 08/07/22 [Rx Last Taken Unknown] carvedilol 6.25 mg tablet 6.25 mg PO BID #60 tabs 08/14/22 [Rx Last Taken Unknown] betamethasone, augmented 0.05 % topical cream 1 applic topical DAILY PRN allergic reaction 10/21/22 [History Last Taken Unknown] ferrous gluconate 240 mg (27 mg iron) tablet (Ferate) 240 mg PO DAILY 10/21/22 [History Last Taken Unknown] mecobalamin (vitamin B12) 1,000 mcg chewable tablet 1,000 mcg PO DAILY 10/21/22 [History Last Taken Unknown] rosuvastatin 20 mg tablet 20 mg PO DAILY 10/21/22 [History Last Taken Unknown] zolpidem 12.5 mg tablet,extended release,multiphase (Ambien CR) 12.5 mg PO QHS Insomnia 10/21/22 [History Last Taken Unknown] ketorolac 10 mg tablet 10 mg PO 4X/DAY PRN PRN pain 5 days #20 tabs 12/11/22 [Rx Last Taken Unknown] methocarbamol 500 mg tablet 500 mg PO 4X/DAY PRN PRN Muscle pain/spasm 10 days #40 tabs 12/11/22 [Rx Last Taken Unknown] oxycodone-acetaminophen 5 mg-325 mg tablet (Endocet) 1 tab PO Q6H PRN pain 3 days #12 tabs 12/11/22 [Rx Last Taken Unknown] Allergy/AdvReac Type Severity Reaction Status Date / Time prednisone Allergy Other Verified 12/11/22 05:34 codeine AdvReac Vomiting Verified 12/11/22 05:34 Family History Mother Breast cancer Father Bladder cancer metastasized to liver Bladder cancer Prostate cancer Surgical History (Updated 12/11/22 @ 05:32 by Margarette Lua) H/O: hysterectomy History of bladder surgery History of History of cardiac radiofrequency ablation History of left heart catheterization (07/11/22) Status post total right knee replacement Social History current occupational status: retired Smoking Status: Former smoker alcohol intake: current alcohol intake frequency: a few times a week Alcohol type: wine substance use type: does not use caffeine: Yes Type: coffee Number of servings: 3 what type of physical activity do you participate in: aerobics frequency: 3-4 times per week seatbelt use: always do you feel safe at home: Yes additional social history: -Gurjit- GMI ROS ROS ED Constitutional Constitutional ED: Denies chills or fever(s) ENT ENT ED: Denies sore throat Cardiovascular Cardiovascular: Denies chest pain Respiratory/Chest Respiratory/Chest: Denies cough or dyspnea Gastrointestinal Gastrointestinal: Denies abdominal pain, diarrhea, nausea or vomiting Genitourinary Genitourinary ED: Denies dysuria or hematuria Musculoskeletal Musculoskeletal: Reports back pain Integumentary Denies rash Neurologic Neurologic: Denies headache(s), paresthesias or weakness Hematologic/Lymphatic Hematologic/Lymphatic: Denies easy bleeding or easy bruising EXAM Physical Exam Const Vital Signs: 12/11/22 05:28 Temperature 97.5 F L Temperature Source Temporal Pulse Rate 77 Respiratory Rate 20 H Blood Pressure 166/95 H Blood Pressure Mean 118 Pulse Ox 99 Oxygen Delivery Method Room Air Positive well nourished and well developed General Appearance ED: well developed Eyes PERRL and EOMs intact bilaterally Neck supple Resp normal respiratory effort and clear to auscultation bilaterally Cardio regular rate and regular rhythm Rate: other Other Details: Radial pulses are +2-4 bilaterally are equal and symmetric GI normal to inspection, nondistended, normoactive bowel sounds, non-tender, non-distended and no masses GI Narrative: No voluntary guarding or rigidity no pulsatile mass or fluid wave Auscultation: normoactive bowel sounds Palpation: soft Back/Spine no CVA tenderness Back/Spine Narrative: No bony deformity or step-off of the thoracic or lumbar spine no midline pain on palpation. There is pain on palpation greatest in the right sacroiliac joint region. There is also mild tension and spasm noted along the right piriformis and psoas muscle belly region. Pain does worsen with any type of right leg or low back motion. No saddle anesthesia. Negative straight leg raise. No clonus or Babinski. Patellar reflexes are plus 1 out of 4 bilaterally. Extremity normal to inspection Neuro oriented x3, CN's II-XII intact bilaterally and no sensory deficits noted Sensorium / Orientation: alert Psych mental status grossly normal Skin no rashes or lesions noted Skin Narrative: No overlying soft tissue changes to suggest trauma or infection MDM MDM MDM Narrative Medical decision making narrative: Patient presented to the ER hypertensive but has a past medical history of this and is in pain so this is to be expected. She had pain greatest in the right low back over top the sacroiliac joint that is worse with motion. There is no report or signs of trauma. She has no risk factors for cauda equina or epidural abscess. Patient has no signs of neurovascular compromise in the right lower leg. Based on the location of the pain and the fact that worsens with motion I feel this is most likely musculoskeletal and SI joint dysfunction especially as symptoms have been intermittent throughout the week. However as kidney stone could be a possibility I like to perform a urine sample checking for blood as 85% of stones will have blood present in the urine. Patient's work-up showed no obvious signs of infection there is +1 bacteria but there is also contamination with skin cells and she has no dysuria therefore I feel no need to treat this. There is no blood present on the urine as well and there is glucose present but she is diabetic so this is to be expected. After treatment with Toradol Norflex and morphine patient had improvement of her pain down to a value of a 3 or 4. She is able to ambulate and move without severe pain. She does not have any signs of neuro claudication and therefore at this time as work-up does not suggest infectious process or kidney stone as a cause of her pain and there is no signs of nerve impingement or neurovascular compromise she can be discharged home History & Record Review Discussion w/independent historian: Patient and Significant other Lab Data Attestation: I reviewed the patient's lab results. Labs: Laboratory Results - last 24 hr 12/11/22 07:10 Urine Color Yellow Urine Clarity Sl. Cloudy Urine pH 6.5 Ur Specific [place] 1.015 Urine Protein 30 H Urine Glucose (UA) 1000 H Urine Ketones 50 H Urine Occult Blood Negative Urine Nitrite Negative Urine Bilirubin Negative Urine Urobilinogen Normal Ur Leukocyte Esterase Negative Urine RBC 0 SEEN Urine WBC 0 SEEN Ur Squamous Epith Cells 5-10 SEEN Urine Bacteria 1+ Urine Mucus 0 SEEN Discharge Plan Triage Chief Complaint: Flank Pain ED Provider: Antoine Tran Dx/Rx/DC Orders Clinical Impression: Sacroiliac joint dysfunction of right side, Lumbosacral strain, DM II (diabetes mellitus, type II), controlled, Hypertension Instructions: Understanding Lumbosacral Strain, Understanding Sacroiliac Strain Prescriptions: New oxycodone-acetaminophen [Endocet] 5-325 mg tablet 1 tab PO Q6H PRN (Reason: pain) 3 Days Qty: 12 0RF methocarbamol 500 mg tablet 500 mg PO 4X/DAY PRN PRN (Reason: Muscle pain/spasm) 10 Days Qty: 40 0RF ketorolac 10 mg tablet 10 mg PO 4X/DAY PRN PRN (Reason: pain) 5 Days Qty: 20 0RF No Action zolpidem [Ambien CR] 12.5 mg tablet,ext release multiphase 12.5 mg PO QHS estradiol 0.01 % (0.1 mg/gram) cream 0.1 applic vaginal SUWE Rx Instructions: compounded at [facility]-small amount twice a week ferrous gluconate [Ferate] 240 mg (27 mg iron) tablet 240 mg PO DAILY Label Comments: TAKE 1 TABLET BY MOUTH ONCE DAILY WITH WATER OR JUICE BETWEEN MEALS rosuvastatin 20 mg tablet 20 mg PO DAILY Label Comments: TAKE 1 TABLET BY MOUTH ONCE DAILY (STOP ATORVASTATIN) mecobalamin (vitamin B12) 1,000 mcg tablet,chewable 1,000 mcg PO DAILY betamethasone, augmented 0.05 % cream 1 applic topical DAILY PRN (Reason: allergic reaction) metformin 500 MG tablet 500 mg PO BIDCM aspirin 81 mg Tablet,Delayed Release (Dr/Ec) 81 mg PO DAILY amlodipine 5 mg tablet 5 mg PO DAILY Qty: 30 11RF carvedilol 6.25 mg tablet 6.25 mg PO BID Qty: 60 12RF Rx Instructions: must administer with a meal/food Primary Care Provider: Tess Morataya Referrals: Tess Morataya DO [Primary Care Provider] - Activity Restrictions/Additional Instructions: Please take the prescribed medication as directed to help control your symptoms. Continue to stretch and heat your low back to also reduce pain and speed healing. If you have any further concerns please return to the ER for repeat evaluation Disposition Disposition: Home, Self Care
[2022-12-11] MEDS: Ketorolac 30 MG/ML Syringe IV (08:47)
[2022-12-11 08:48] VITALS: BP 160/85; PULSE 65
== END 2022-12-11 08:51 | disposition home or self-care (01) ==
PROVIDERS: Emergency Provider Emergency Medicine; PCP Family Medicine; Visit Provider Emergency Medicine
DX: S39.012A Strain of muscle, fascia and tendon of lower back, initial encounter (principal); E11.9 Type 2 diabetes mellitus without complications; I10 Essential (primary) hypertension; E78.5 Hyperlipidemia, unspecified; I25.2 Old myocardial infarction; Z79.899 Other long term (current) drug therapy; Z79.82 Long term (current) use of aspirin; Z79.84 Long term (current) use of oral hypoglycemic drugs; Z87.891 Personal history of nicotine dependence; X58.XXXA Exposure to other specified factors, initial encounter
CPT/HCPCS: 81001; 96374; 96375; 99282; A4216; J2405

== ENCOUNTER → 2022-12-22 | Outpatient (CLI) | payer MEDICARE, OTHER, SELFPAY ==
--- NOTE | 2022-12-22 14:08 | RAD_ITS ---
STUDY: X-RAY - LUMBOSACRAL SPINE REASON FOR EXAM: Female, 67 years old. HIP PAIN AND RIGHT FLANK PAIN TECHNIQUE: 6 view(s) of the lumbosacral spine were obtained. COMPARISON: None FINDINGS: Normal lumbar lordosis. There is no substantial scoliosis. There is normal alignment of the vertebrae. There is multilevel endplate spondylosis of the lumbar vertebrae. There is multi-level degenerative disc disease with multi-level disc space narrowing. Normal bilateral sacral ala, sacroiliac joints, and visualized sacrum. Normal visualized soft tissue structures. No instability on the flexion or extension views, range of motion is limited RAD/L/S Spine Bending Flex/Ext IMPRESSION: Degenerative changes of the spine, as detailed above. Electronically Signed: Brian Jane MD at 15:04 EDT ,
--- NOTE | 2022-12-22 14:10 | RAD_ITS ---
EXAM: XR RIGHT HIP WITH PELVIS WHEN PERFORMED, 2 OR 3 VIEWS CLINICAL INDICATION: PAIN TECHNIQUE: Two or three views of the right hip with pelvis when performed. This report was created using Rad report generation technology. COMPARISON: None. FINDINGS: BONES/JOINTS: Unremarkable. No displaced fracture. No destructive or sclerotic lesions. Note that overlapping bowel shadows may however obscure fine detail. Sacroiliac joint is unremarkable. No widening of the pubic symphysis. The articular structures are unremarkable. SOFT TISSUES: Unremarkable. No soft tissue swelling or gas. RAD/HIP, UNI W/ Pelvis 2-3 Views IMPRESSION: No evidence of displaced pelvic or hip fracture. Electronically Signed: Vince Artis MD at 0:09 EDT ,
[2022-12-22 15:03] LABS: Absolute Lymphocyte Count 1.65 X10^3/uL (0.83-4.51); Absolute Neutrophil Count 3.1 X10^3/uL (2.0-7.7); Basophil# 0.05 X10^3/uL; Basophil% 0.9 % (0-1); Eosinophil# 0.16 X10^3/uL; Eosinophils% 2.9 % (0-5); Hematocrit 40.9 % (37-47); Hemoglobin 13.4 g/dL (12.0-15.0); Lymphocyte # 1.65 X10^3/ul (0.83-4.51); Lymphocyte % 30.2 % (19-41); Mean Corp Hgb Conc 32.8 g/dL (32-36); Mean Corpuscular Hgb 30.3 pg (27.0-32.0); Mean Corpuscular Volume 92.5 fL (81-99); Mean Platelet Vol. 10.8 fl (6.2-12.0); Monocyte# 0.51 X10^3/uL; Monocyte% 9.3 % (0-10); NRBC Flagged by Analyzer 0 % (0-5); Neutrophil # 3.09 X10^3/uL (2.7-7.7); Neutrophil % 56.5 % (47-70); Platelet Count 205 K/mm3 (150-450); RBC Distribution Width CV 13.4 % (11.6-14.6); RBC Distribution Width SD 45.4 fl (35.1-43.9); Red Blood Count 4.42 M/mm3 (4.2-5.4); White Blood Count 5.5 K/mm3 (4.4-11.0)
[2022-12-22 15:28] LABS: ALB/GLOB Ratio 1.2 RATIO (0.9-2.4); AST(SGOT) 25 U/L (15-37); Alanine Aminotransfer ALT/SGPT 36 U/L (13-56); Alkaline Phosphatase 78 U/L (45-117); Anion Gap 6 (5-15); BUN 11 mg/dL (7-18); BUN/Creat Ratio 13.6 RATIO (10-20); Calcium,Total 9.4 mg/dL (8.5-10.1); Chloride 103 mmol/L (98-107); Creatinine, Serum 0.81 mg/dL (0.55-1.02); EST Glomerular Filtration Rate 75 mL/min (>60); Est Glom Filt Rate - Afr Amer 91 mL/min (>60); Free T3 2.6 pg/mL (2.18-3.98); Globulin 3.4 g/dL (2.2-4.2); Glucose 124 mg/dL (74-106); Protein, Total 7.4 g/dL (6.4-8.2); Sodium Level 140 mmol/L (136-145); T4 Free Direct 1.26 ng/dL (0.76-1.46); Thyroid Stim Hormone (TSH) 1.55 uIU/mL (0.358-3.74)
[2022-12-22 15:39] LABS: Vitamin B12 665 pg/mL (211-911)
[2022-12-22 16:23] LABS: Hemoglobin A1c 6.9 % (3.8-5.6)
== END | disposition home or self-care (01) ==
PROVIDERS: PCP Family Medicine; Referring Provider Family Medicine; Visit Provider Family Medicine
DX: E11.9 Type 2 diabetes mellitus without complications (principal); E53.8 Deficiency of other specified B group vitamins; R53.83 Other fatigue; Z51.81 Encounter for therapeutic drug level monitoring; R10.11 Right upper quadrant pain; R10.9 Unspecified abdominal pain; M25.551 Pain in right hip
CPT/HCPCS: 36415; 72120; 73502; 80053; 82607; 83036; 84439; 84443; 84481; 85025

== ENCOUNTER → 2023-01-21 | Outpatient (CLI) | payer MEDICARE, OTHER, SELFPAY | END | disposition home or self-care (01) | LOC: LABSPEC 12:03 | PROVIDERS: PCP Family Medicine; Referring Provider Nurse Practitioner Women's Health; Visit Provider Nurse Practitioner Women's Health | DX: N89.8 Other specified noninflammatory disorders of vagina (principal) | CPT/HCPCS: 87070; 87205 ==

== ENCOUNTER 2023-02-02 09:30 | Outpatient (RCR) | payer SELFPAY ==
--- NOTE | 2023-01-19 08:30 | HP.PTEVAL_ITS ---
Patient's Visit Information URIEL LEES is a 67 year old F referred to Physical Therapy by Self Referred with a diagnosis of Neck pain. Date of Evaluation: 01/18/23 Physical Therapist: Anuj Yang DPT - Visit Plan Frequency: 1x/Week Duration: 4 Weeks Plan: I will start with DN throughout her cervical spine musculature. Add in SNAGs with towel for mobility and cervical retraction. If not improving with in a few weeks I recommend that she follow up with physician for formal diagnosis and possible imaging. - Subjective Pt. is here today for self pay dry needling for her neck pain. Pt. reports having neck pain for year, but felt today that she should finally check it out. Pt. reports no radicular symptoms. Pain is felt at middle and base of neck. Difficulty turning her neck and pain opposite to the side of turning. Difficulty with some driving and with some recreational activities. No issues sleeping. Pt. is hopeful to reduce symptoms in order to get back to all previous recreational activities without limitations. - Pain lower cervical spine Pain Intensity (Out of 10): 3 Pain Intensity Range: 0, 6 - Objective POSTURE: Pt. has slight FH posture. Slight rounded shoulders. Slight thoracic kyphosis with cervical correction. PALPATION: pt. has some hypomobility with spring testing throughout cervical spine, normal lateral glides noted. NEURO: normal throughout. ROM: B shoulders: normal. Cervical spine: flexion min loss NE, ext mod loss NE, rotation R mod loss increase NW on L side, rotation L mod loss increase NW on R side. SB mod loss bilat. MMT: 5/5 throughout. - Balance/Special Test Scores Oswestry Neck Score: 7 - Goals Goal 1:: LTG: Pt. to have increased cervical ROM to at least 75% of full throughout cervical spine. Goal Time Frame: 4-6 Weeks Goal 2:: LTG: Pt. to reports 0-1/10 pain of her cervical spine with all of her daily and recreational activities. Goal Time Frame: 4-6 Weeks - Rehabilitation Potential Physical Therapy Diagnosis: Pt. has signs and symptoms consistent with cervicalgia with marked hypomobility. She does appear to have some muscle tightness, but also hypomobility of her spine as well. Pt. would benefit from dry needling to assist with her muscle tightness, but I also gave her some ROM exercises to increase her overall mobility. Rehabilitation Potential: Good - Anticipated Interventions Patient/Client Instruction: Educate patient on: Condition, Plan of Care, Risk Factors, Benefits of Fitness Program For the Purpose of:: To improve self management, To prevent re-injury, To improve ability to perform tasks related to life management, To improve tolerance to ADL's Manual Therapy Techniques to Include: Functional dry needling For the Purpose of:: To decrease pain, To increase ROM Thank you for the opportunity to evaluate your patient. For Medicare and Medicare HMO plans, please review the plan of care and approve it. It will need to be FAXED BACK to us at [phone] for Medicare purposes. For Medicare only, by signing this I certify the plan of care. Please let me know if there are questions or concerns regarding this plan of care. Physician Signature: Date:
--- NOTE | 2023-07-13 08:45 | HP.PT.NRP ---
Patient Information Patient Information: URILE LEES was seen in my office for initial evaluation on 01/18/23. The following Plan of Care was established for this patient: POC Established Initial Frequency: 1x/Week Initial Duration: 4 Weeks Anticipated Interventions Patient/Client Instruction: Educate patient on: Condition, Plan of Care, Risk Factors and Benefits of Fitness Program For the Purpose of:: To improve self management, To prevent re-injury, To improve ability to perform tasks related to life management and To improve tolerance to ADL's Manual Therapy Techniques to Include: Functional dry needling For the Purpose of:: To decrease pain and To increase ROM Last Seen Last Seen: This patient was last seen in our office 02/02/23. Pertinent comments regarding their Physical therapy will appear below: Pt. was seen for self pay DN. Pt. was doing very well at her last visit. Pt. has not been seen in several months and will be DC from PT at this point in time. At this point I will be discontinuing this patient from physical therapy. I would be happy to see this patient again in the future if found appropriate by the physician. Thank you! Anuj Yang, DPT Balance/Gait/Functional tests Balance/Special Test Scores Oswestry Neck Score: 0
== END 2023-02-02 19:00 | disposition home or self-care (01) ==
LOC: PT 09:30
PROVIDERS: PCP Family Medicine
DX: R69 Illness, unspecified (principal)

== ENCOUNTER → 2023-05-26 | Outpatient (CLI) | payer MEDICARE, OTHER, SELFPAY ==
--- NOTE | 2023-05-26 08:04 | BI_ITS ---
MAMMOGRAPHY - BILATERAL SCREENING REASON FOR EXAM: Female, 67 years old. Routine annual screening examination. PERTINENT HISTORY: Mother with breast cancer. TECHNIQUE: Digital bilateral breast kelsey (3D mammographic acquisition) in the CC and MLO projections. 2-D mediolateral oblique (MLO) and craniocaudad (CC) views of both breasts were obtained. CAD: Full Field Digital Mammography with Computer Added Detection was performed. COMPARISON: Comparison is made with prior study May 25, 2022 and May 22, 2021 FINDINGS: Breast Composition: There are scattered areas of fibroglandular density. There are no dominant masses or suspicious calcifications. No other significant abnormalities are identified. There has been no significant change since the prior study. BI/SCRN MAMM (CAD)W/KELSEY BILAT IMPRESSION: Stable bilateral screening mammogram. Yearly follow-up mammogram recommended. (A) ASSESSMENT CATEGORY: BIRADS Category 1: Negative. A letter regarding these results will be sent to the patient by the facility within 30 days. Approximately 10% of breast cancers are not detected by mammography. A normal mammogram should not delay biopsy of a clinically suspicious abnormality. [id number] Electronically Signed: Shahriar Dutta MD at 9:12 EDT ,
== END | disposition home or self-care (01) ==
LOC: OPBI 08:02
PROVIDERS: PCP Family Medicine; Referring Provider Nurse Practitioner Women's Health; Visit Provider Nurse Practitioner Women's Health
DX: Z12.31 Encounter for screening mammogram for malignant neoplasm of breast (principal)
CPT/HCPCS: 77063; 77067

== ENCOUNTER 2023-06-28 13:30 | Outpatient (CLI) | payer MEDICARE, OTHER, SELFPAY ==
--- NOTE | 2023-06-28 15:03 | NEURO ---
NCS and/or EMG Patient Report Ordering Doctor: Alexandra Garcia DATE OF SERVICE: 06/28/23 Findings: Nerve conduction studies were performed in the left lower extremity. The left peroneal motor study recording the extensor digitorum brevis showed a normal amplitude, normal distal latency and normal conduction velocity. No conduction block or focal slowing was present across the fibular neck. The left tibial motor study recording the abductor hallucis brevis showed a normal amplitude, normal distal latency and normal conduction velocity. The left sural sensory response showed a normal amplitude and conduction velocity. The left superficial peroneal sensory response showed a normal amplitude and conduction velocity. Needle EMG of the left lower extremity muscles was performed. No denervation was present in any muscle. Motor unit morphology, activation, and recruitment patterns were normal. Impression: This is a normal study. There is no electrophysiologic evidence of peripheral neuropathy in the left lower extremity. Please note: routine nerve conduction studies and needle EMG assess the larger, myelinated motor and sensory fibers. Thus, routine electrodiagnostic studies may be insensitive in detecting a peripheral neuropathy restricted to small fibers alone (i.e., pain, temperature and autonomic fibers). However, most peripheral neuropathies with predominantly small fiber large dysfunction will also involve large fibers to a lesser extent, and will demonstrate abnormalities on electrodiagnostic studies. Thus, clinical correlation is required in the interpretation of this negative electrodiagnostic study if an isolated small fiber neuropathy is considered. Moe Allen D.O. Multi Select Codes Neurology Neurology Interp Codes: 90887-88 Musc test done w/n test comp (interp) and 61475-73 Nrv cndj tst 3-4 studies (interp)
== END 2023-06-28 23:59 | disposition home or self-care (01) ==
LOC: PSN 13:31
PROVIDERS: PCP Family Medicine; Referring Provider Family Medicine; Visit Provider Family Medicine
DX: G62.9 Polyneuropathy, unspecified (principal); R20.2 Paresthesia of skin
CPT/HCPCS: 95886; 95908

== ENCOUNTER → 2023-07-12 | Outpatient (CLI) | payer MEDICARE, OTHER, SELFPAY ==
[2023-07-12 12:13] LABS: Absolute Lymphocyte Count 1.31 X10^3/uL (0.83-4.51); Absolute Neutrophil Count 1.7 X10^3/uL (2.0-7.7); Basophil# 0.07 X10^3/uL; Basophil% 1.9 % (0-1); Hematocrit 42.4 % (37-47); Hemoglobin 13.8 g/dL (12.0-15.0); Lymphocyte # 1.31 X10^3/ul (0.83-4.51); Lymphocyte % 34.8 % (19-41); Mean Corp Hgb Conc 32.5 g/dL (32-36); Mean Corpuscular Hgb 31.2 pg (27.0-32.0); Mean Corpuscular Volume 95.7 fL (81-99); Mean Platelet Vol. 10.3 fl (6.2-12.0); Monocyte% 10.6 % (0-10); NRBC Flagged by Analyzer 0 % (0-5); Neutrophil # 1.65 X10^3/uL (2.7-7.7); Neutrophil % 43.9 % (47-70); Platelet Count 184 K/mm3 (150-450); RBC Distribution Width CV 12.9 % (11.6-14.6); RBC Distribution Width SD 45.9 fl (35.1-43.9); Red Blood Count 4.43 M/mm3 (4.2-5.4); White Blood Count 3.8 K/mm3 (4.4-11.0)
[2023-07-12 12:24] LABS: Vitamin B12 935 pg/mL (211-911)
[2023-07-12 12:52] LABS: ALB/GLOB Ratio 1.2 RATIO (0.9-2.4); AST(SGOT) 21 U/L (15-37); Alanine Aminotransfer ALT/SGPT 28 U/L (13-56); Alkaline Phosphatase 83 U/L (45-117); Anion Gap 6 (5-15); BUN 9 mg/dL (7-18); BUN/Creat Ratio 13.9 RATIO (10-20); Calcium,Total 8.9 mg/dL (8.5-10.1); Chloride 103 mmol/L (98-107); Cholesterol 125 mg/dL (200); Creatinine, Serum 0.65 mg/dL (0.55-1.02); EST Glomerular Filtration Rate 97 mL/min (>60); Est Glom Filt Rate - Afr Amer 117 mL/min (>60); Ferritin 52 ng/mL (8-252); Globulin 3.2 g/dL (2.2-4.2); Glucose 168 mg/dL (74-106); High Density Lipoprotein 70 mg/dL; Iron 107 ug/dL (50-170); Potassium 4.1 mmol/L (3.5-5.1); Protein, Total 7.2 g/dL (6.4-8.2); Sodium Level 137 mmol/L (136-145); Triglycerides 79 mg/dL; Very Low Density Lipoprotein 16 mg/dL (5-40)
[2023-07-12 12:57] LABS: Microalbumin,Random Urine < 5.0 mg/L (NO RANGE EST.)
== END | disposition home or self-care (01) ==
LOC: BFHLAB 08:14
PROVIDERS: PCP Family Medicine; Referring Provider Family Medicine; Visit Provider Family Medicine
DX: E11.9 Type 2 diabetes mellitus without complications (principal); I10 Essential (primary) hypertension; G25.81 Restless legs syndrome; E53.8 Deficiency of other specified B group vitamins; E61.1 Iron deficiency; D64.9 Anemia, unspecified
CPT/HCPCS: 36415; 80053; 80061; 82043; 82570; 82607; 82728; 82746; 83540; 85025

== ENCOUNTER → 2023-11-01 | Outpatient (CLI) | payer MEDICARE, OTHER, SELFPAY ==
--- NOTE | 2023-11-01 15:41 | RAD_ITS ---
INDICATION: ABD PAIN/BLOATING/CHANGE IN STOOL EXAMINATION/TECHNIQUE: X-RAY - XR Abdomen COMPARISON: None. FINDINGS: Frontal views of the abdomen and pelvis were obtained. No dilated loops of small bowel. No gross free air given the limitations of a supine view. RAD/Abdomen Single View IMPRESSION: No acute abnormality. Electronically Signed: Sae Hinson MD at 7:57 EST ,
--- OUTSIDE RECORDS SUMMARY | 2023-11-01 16:05 | XMS RPT_ITS | CCD ---
Author Name Unknown Address [address] [place] [address] Organization [facility] Care Team Providers Care Laser Set Up Operator Name Role Phone Tess Ozuna DO Primary Care Provider VENU LESTER Admitting Unavailable TESS OZUNA Primary Care Unavailable VENU LESTER Attending Unavailable DERRICK LANZA Referring Unavailable TESS OZUNA Primary Care Unavailable VENU LESTER Attending Unavailable Allergies Allergy Classification Reported Allergen(s) Allergy Type Date of Onset Reaction(s) Facility (1 source) Codeine Drug Allergy 3 Nausea and Vomiting [facility] (1 source) Sulfonamides (Antibiotic) Propensity to adverse reactions to drug 3 Cough [facility] Medications Current Medications Medication Drug Class(es) Dates Sig (Normalized) Sig (Original) amLODIPine 5 mg oral tablet (1 source) Dihydropyridine Calcium Channel Kendrick Start: 10-30-2022 take 1 tablet by mouth once daily amLODIPine 5 MG tablet Take 1 tablet by mouth daily. 0 10/30/2022 Active aspirin 81 mg chewable tablet (1 source) Platelet Aggregation Inhibitor, Nonsteroidal Anti-inflammatory Drug aspirin 81 MG Chew Tab chewable tablet Chew 1 tablet daily. 0 Active carvedilol 6.25 mg oral tablet (1 source) alpha-Adrenergic Kendrick, beta-Adrenergic Kendrick Start: 08-19-2022 take 1 tablet by mouth twice daily at mealtime carveDILOL 6.25 MG tablet TAKE 1 TABLET BY MOUTH TWICE A DAY WITH FOOD OR A MEAL 0 08/19/2022 Active Estriol (1 source) ferrous gluconate 240 mg oral tablet (1 source) Start: 10-29-2022 take 1 tablet by mouth once daily at mealtime Ferate 240 (27 Fe) MG tablet TAKE 1 TABLET BY MOUTH ONCE DAILY WITH WATER OR JUICE BETWEEN MEALS 0 10/29/2022 Active metFORMIN hydrochloride 500 mg oral tablet (1 source) Biguanide Start: 09-01-2022 take 1 tablet by mouth twice daily metFORMIN 500 MG tablet Take 1 tablet by mouth 2 times daily. 0 09/01/2022 Active rosuvastatin calcium 20 mg oral tablet (1 source) HMG-CoA Reductase Inhibitor Start: 10-29-2022 take 1 tablet by mouth once daily Rosuvastatin 20 MG tablet TAKE 1 TABLET BY MOUTH ONCE DAILY (STOP ATORVASTATIN) 0 10/29/2022 Active vitamin b12 1 mg oral tablet (1 source) Vitamin B12 cyanocobalamin 1 000 MCG tablet Take 1 tablet by mouth. 0 Active zolpidem tartrate 12.5 mg extended release oral tablet (1 source) gamma-Aminobutyric Acid-ergic Agonist take 1 tablet by mouth at bedtime as needed for sleep zolpidem CR 12.5 MG Tab CR tablet Take 1 tablet by mouth At bedtime as needed for Sleep. 0 Active Completed/Discontinued Medications Medication Drug Class(es) Dates Sig (Normalized) Sig (Original) acetaminophen 325 mg oral tablet (1 source) Start: 12-02-2022 End: 12-02-2022 take 1 tablet by mouth every six hours as needed Acetaminophen (TYLENOL) tablet 325 mg 1 ml HYDROmorphone hydrochloride 1 mg/ml cartridge (1 source) Opioid Agonist Start: 12-02-2022 End: 12-02-2022 take 0.2 mg intravenously every two hours as needed HYDROmorphone (DILAUDID) injection 0.2 mg oxyCODONE (1 source) Opioid Agonist Start: 12-02-2022 End: 12-02-2022 take 1 tablet by mouth every four hours as needed oxyCODONE (ROXICODONE) tablet 5 mg Sodium Chloride (2 sources) Start: 12-02-2022 End: 12-02-2022 Sodium chloride 0.9% IV solution Problems Problem Classification Problem Date Documented Date Episodic/Chronic Cardiac dysrhythmias (4 sources) Supraventricular tachycardia; Translations: [Supraventricular tachycardia] Onset: 12-02-2022 Chronic Cardiac dysrhythmias (2 sources) Palpitations; Translations: [Palpitations] Onset: 11-03-2022 Episodic Results Test Name Value Interpretation Reference Range Facil ity Vital Signs Date Time Vital Sign Value Performing Clinician Faci lity 12-02-2022 20:35-0500 Diastolic blood pressure 77 mm[Hg] Venu Lester MD Work Phone: [facility] 12-02-2022 20:35-0500 Heart rate 92 /min Venu Lester MD Work Phone: [facility] 12-02-2022 20:35-0500 Respiratory rate 20 /min Venu Lester MD Work Phone: [facility] 12-02-2022 20:35-0500 SaO2% (BldA) [Mass fraction] 92 % Venu Lester MD Work Phone: [facility] 12-02-2022 20:35-0500 Systolic blood pressure 154 mm[Hg] Venu Lester MD Work Phone: [facility] 12-02-2022 16:10-0500 Body temperature 98.01 [degF] Venu Lester MD Work Phone: [facility] 12-02-2022 12:15-0500 Body height 156.2 cm Venu Lester MD Work Phone: [facility] 12-02-2022 12:10-0500 Body mass index (BMI) [Ratio] 28.03 kg/m2 Venu Lester MD Work Phone: [facility] 12-02-2022 12:10-0500 Body weight 68.4 kg Venu Lester MD Work Phone: [facility] Encounters Encounter Date Encounter Type Care Provider Facility Start: 12-02-2022 End: 12-02-2022 ambulatory VENU LESTER Facility:[facility] Start: 12-02-2022 End: 12-02-2022 Subsequent hospital visit by physician Venu Lester MD Work Phone: Cardiology Invasive Prep and Recovery Procedures Date Procedure Procedure Detail Performing Clinician Start: 12-02-2022 Ephys eval w/ablatio n supravent arrhythmia Venu Lester MD Work Phone: Start: 12-02-2022 Glucose measurement, blood Venu Lester MD Work Phone: Start: 12-02-2022 CBC AND ELECTRONIC DIFF Jennifer A Hermann HEALTH PROGRAM DIRECTOR-AUTOMATION/CONTROLS MANAGER Work Phone: Start: 12-02-2022 Complete blood count with white cell differential, automated Jennifer A Hermann HEALTH PROGRAM DIRECTOR-AUTOMATION/CONTROLS MANAGER Work Phone: Start: 12-02-2022 Electrolyte panel Jennifer A Dryden HEALTH PROGRAM DIRECTOR-AUTOMATION/CONTROLS MANAGER Work Phone: Plan of Treatment Date Care Activity Detail Author Start: 03-08-2030 Tetanus vaccination TETANUS [facility] Start: 10-15-2020 Zoster vaccine hzv live for subcutaneous use ZOSTER (SHINGLES) VACCINE (2 of 2) [facility] Start: 06-27-2013 Pneumococcal vaccination PNEUMOCOCCAL VACCINE SERIES (2 - PCV) [facility] Start: 2000 Screening for malignant neoplasm of colon COLORECTAL CANCER SCREENING DISCUSSION [facility] Start: 1995 Lipid panel LIPID SCREENING [facility] Start: 1995 Screening for malignant neoplasm of breast MAMMOGRAM SCREENING DISCUSSION [facility] Start: 1976 Screening for malignant neoplasm of cervix CERVICAL CANCER SCREENING DISCUSSION [facility] Start: 1955 COVID-19 VACCINE (#1) COVID-19 VACCINE (#1) [facility] Start: 1955 Hepatitis C screening HEPATITIS C VIRUS SCREENING [facility] Start: 1955 Screening for osteoporosis DEXA SCAN DISCUSSION [facility] Electrophysiology study EP PROCE DURE - EPS/ABLATION/DEVICE Electrophysiology Routine SVT (supraventricular tachycardia) 12/02/2022 3:55 PM EST [facility] Work Phone: Immunizations Immunization Date Immunization Notes Care Provider Fa [facility] 08-20-2020 zoster vaccine, unspecified formulation Venu Lester MD Work Phone: [facility] Payers Date Payer Category Payer Medicare MEDICARE MEDICAR E A AND B [id number] 2022-Present [address] [place] [address] [id number] 2022 Medicare [id number] 2020 Unknown GENERIC PAYOR ME DICARE SUPPLEMENT [id number] 2020-Present [phone] [address] [place] [address] [id number] 2020 Unknown [id number] 1955 Unknown [id number] 1955 Unknown [id number] 1955 Unknown [id number] Social History Date Type Detail Facility Tobacco smoking stat [facility] Tobacco smoking consumption unknown [facility] Start: 1955 Sex Assigned At Not on file O [facility] Start: 11-22-2022 End: 12-02-2022 Exposure to SARS-CoV-2 (event) Not sure [facility] Note 12-02-2022 Nursing Notes - Garcia Randall RN - 12/02/2022 8:50 PM ESTNursing Notes - Liset Martinez RN - 12/02/2022 5:50 PM ESTNursing Notes - Liset Martinez RN - 12/02/2022 4:30 PM EST Note Date & Type Note Facility 12-02-2022 Miscellaneous Notes Formattin g of this note might be different from the original. Discharge instructions and printed AVS reviewed with patient by this RN, all questions answered. Pt verbalizes understanding. IV dc'd with no difficulty and catheter tip intact. Telemetry dc'd. VS stable at time of discharge. Patient being discharged to home by this RN with family. No patient belongings left at bedside. Post procedure recovery without events. Right groin site without bleeding or hematoma, palpable pedal pulses. Dr Lester here and talks with pt and re procedure Dr Nicholas here for signout Received from EP lab, handoff report from [employer] and RN Pt arrives to room 42 in [facility] for SVT ab;ation/EP study. IV started in lt arm. Labs drawn and sent. Pt prep completed. Clothes secured in room. Questions about procedure answered. Family brought to bedside. Bed in low position, side rail up x2 and call light given to pt. Tele monitor shows NSR. documented in this encounter [facility] Clinical Note 12-02-2022 Nursing Notes - Garcia Randall RN - 12/02/2022 8:50 PM EST Note Date & Type Note Facility 12-02-2022 Note Formatting of this n ote might be different from the original. Discharge instructions and printed AVS reviewed with patient by this RN, all questions answered. Pt verbalizes understanding. IV dc'd with no difficulty and catheter tip intact. Telemetry dc'd. VS stable at time of discharge. Patient being discharged to home by this RN with family. No patient belongings left at bedside. Post procedure recovery without events. Right groin site without bleeding or hematoma, palpable pedal pulses. [facility] Clinical Note 12-02-2022 Nursing Notes - Liset Martinez RN - 12/02/2022 5:50 PM EST Note Date & Type Note Facility 12-02-2022 Note Formatting of this n ote might be different from the original. Dr Lester here and talks with pt and re procedure [facility] Clinical Note 12-02-2022 Nursing Notes - Liset Martinez RN - 12/02/2022 4:30 PM EST Note Date & Type Note Facility 12-02-2022 Note Formatting of this n ote might be different from the original. Dr Nicholas here for signout [facility] Clinical Note 12-02-2022 Nursing Notes - Liset Martinez RN - 12/02/2022 4:10 PM EST Note Date & Type Note Facility 12-02-2022 Note Formatting of this n ote might be different from the original. Received from EP lab, handoff report from [employer] and RN [facility] Discharge instructions 12-02-2022 Discharge Instr - ActivityDischarge Instr - DietDischarge Instr - NotifyDischarge Instr - Wound Care Note Date & Type Note Facility 12-02-2022 Hospital Discharg e instructions Rosa Sarkar APRN-AUTOMATION/CONTROLS MANAGER - 12/02/2022 3:26 PM EST Post Ablation Activity Your activity is restricted only as indicated by your physician. Please refer to education for ablation and other care recommendations. - No driving for 24 hours - Keep incision dry - Limit bending at the waist for 48 hours - May resume regular activity in 1-2 weeks unless otherwise notified - Return to work in 1 week - No tub baths or hot tub for 2 weeks or until groin site is healed - No lifting greater than 10-15 pounds for 1 week. Rest for 24 hours after you are home. You should have someone with you to help you the first night you are home. DO NOT drive for 24 hours. DO NOT make any important decisions for 24 hours. DO NOT work around the stove, machinery or power equipment for 24 hours. N Fisher - 12/02/2022 3:26 PM EST Diet: Cardiac 4gm NA Low sodium, low fat, low cholesterol, caffeine controlled. Sodium restricted to 4 grams. N Fisher - 12/02/2022 3:26 PM EST Images from the original note were not included. NOTIFY PHYSICIAN BLEEDING/BRUISING -If severe bleeding, apply pressure -Increased bleeding from site -Increased bruising or hematoma Chest pain or shortness of breath Respiratory Changes Call your doctor or nurse if you have shortness of breath that gets worse -Cough that gets worse -Coughing up blood Stroke Symptoms Call 911 if you suddenly have any of these signs of a stroke: -Numbness or muscle weakness -Trouble swallowing -Problems talking -Dizziness or feeling unsteady -Severe headache -Confusion SYMPTOMS OF DVT DVT = Deep Vein Thrombus, or Blood Clot -any tender, swollen, or reddened areas from your groin to your heels. -numbness or tingling in groin or calf -the skin on your leg looks pale or blue or it feels cold to touch -any shortness of breath -chest pain -fever or chills NAUSEA: When you are nauseated, you may feel weak and sweaty and notice a lot of saliva in your mouth. Nausea often leads to vomiting. Most of the time you do not need to worry about nausea and vomiting, but they can be signs of other illnesses. The doctor has checked you carefully, but problems can develop later. If you notice any problems or new symptoms, get medical treatment right away. Follow-up care is a cox part of your treatment and safety. Be sure to make and go to all appointments, and call your doctor if you are having problems. It's also a good idea to know your test results and keep a list of the medicines you take. How can you care for yourself at home? To prevent dehydration, drink plenty of fluids, enough so that your urine is light yellow or clear like water. Choose water and other caffeine-free clear liquids until you feel better. If you have kidney, heart, or liver disease and have to limit fluids, talk with your doctor before you increase the amount of fluids you drink. Rest in bed until you feel better. When you are able to eat, try clear soups, mild foods, and liquids until all symptoms are gone for 12 to 48 hours. Other good choices include dry toast, crackers, cooked cereal, and gelatin dessert, such as Jell-O. When should you call for help? Call 911 anytime you think you may need emergency care. For example, call if: You passed out (lost consciousness) Call your doctor now or seek immediate medical care if: You have symptoms of dehydration, such as: Dry eyes and a dry mouth Passing only a little dark urine Feeling thirstier than usual You have new or worsening belly pain You have a new or higher fever You vomit blood or what looks like coffee grounds Watch closely for changes in your health, and be sure to contact your doctor if: You have on going nausea and vomiting Your vomiting gets worse Your vomiting last longer than 2 days You are not getting better as expected Where can you learn more? Go to https://www.[employer].net/osu mychart. SAMAN Tejeda - 12/02/2022 3:26 PM EST Catheter site care You can remove your bandages the day after the procedure. You may shower 24 to 48 hours after the procedure, if your doctor okays it. Pat the incision dry. Do not soak the catheter site until it is healed. Don't take a bath for 1 week, or until your doctor tells you it is okay. Watch for bleeding from the site. A small amount of blood (up to the size of a quarter) on the bandage can be normal. If you are bleeding, lie down and press on the area for 15 minutes to try to make it stop. If the bleeding does not stop, call your doctor or seek immediate medical care. documented in this encounter [facility] Clinical Note 12-02-2022 Nursing Notes - Liset Martinez RN - 12/02/2022 12:14 PM EST Note Date & Type Note Facility 12-02-2022 Note Formatting of this n ote might be different from the original. Pt arrives to room 42 in [facility] for SVT ab;ation/EP study. IV started in lt arm. Labs drawn and sent. Pt prep completed. Clothes secured in room. Questions about procedure answered. Family brought to bedside. Bed in low position, side rail up x2 and call light given to pt. Tele monitor shows NSR. [facility] Evaluation note Note Date & Type Note Facility documented in this encounter [facility] Reason for visit Narrative Auth/Cert Note Date & Type Note Facility Referral ID Status Reason Start Date Expiration Date Visits Re quested Visits Authorized [id number] 1 1 [facility] Summary Purpose Family History No Family History Records FoundNo Family History Records FoundNo Family History Records Found Advance Directives No Advanced Directives Records FoundNo Advanced Directives Records FoundNo Advanced Directives Records Found Additional Source Comments INFORMATION SOURCE (unrecogn ized section and content) DATE CREATED AUTHOR AUTHOR'S ORGANIZ ATION 11/06/2019 [facility] DATE CREATED AUTHOR AUTHOR'S ORGANIZ ATION 12/10/2022 [facility] PRN Active and Recently Administ ered Medications (unrecognized section and content) No Frequency Medication Order 11/30/2022 12/01/2022 12/02/2022 Sodium chloride 0.9% IV solution 1 dose, Starting on Wed12/02/22 at 1154, Until Wed12/03/22 at 1200, Created by cabinet override 1200 (Canceled Entry - Provider: System Discharge - Comment: Automatically canceled at discontinue of medication order) Linked Groups Order Group 1: oxyCODONE (ROXICODONE) tablet 5 mgJump to med 5 mg, Oral, EVERY 4 HOURS NEEDED, Starting on Wed12/02/22 at 1603, Until Wed12/02/22 at 2324, Moderate Pain, Severe Pain
PRN for Moderate Pain. Use for Severe Pain if IV not available for use as initial dose. Higher dose may be administred if lower dose was previously documented as ineffective and did not result in adverse effects (RR<10, decrease in level of consciousness).
Post-op/Post-Proc Or oxyCODONE HCl (ROXICODONE) tablet 10 mgJump to med 10 mg, Oral, EVERY 4 HOURS NEEDED, Starting on Wed12/02/22 at 1603, Until Wed12/02/22 at 2324, Moderate Pain, Severe Pain
PRN for Moderate Pain. Use for Severe Pain if IV not available for use as initial dose. Higher dose may be administred if lower dose was previously documented as ineffective and did not result in adverse effects (RR<10, decrease in level of consciousness)
Post-op/Post-Proc Care Teams (unrecognized sec tion and content) FOR RECORDS PERTAINING TO PATIENTS WHO ARE OR HAVE BEEN ENROLLED IN A CHEMICAL DEPENDENCY/SUBSTANCEABUSE PROGRAM, SOME INFORMATION MAY BE OMITTED. This clinical summary was aggregated from multiple sources. Caution should be exercised in using it in the provision of clinical care. This summary normalizes information from multiple sources, and as a consequence, information in this document may materially change the coding, format and clinical context of patient data. In addition, data may be omitted in some cases. CLINICAL DECISIONS SHOULD BE BASED ON THE PRIMARY CLINICAL RECORDS. [employer] [facility]. provides no warranty or guarantee of the accuracy or completeness of information in this document.
[2023-11-01 17:50] LABS: Absolute Lymphocyte Count 2.29 X10^3/uL (0.83-4.51); Basophil# 0.07 X10^3/uL; Basophil% 1.1 % (0-1); Eosinophil# 0.53 X10^3/uL; Hematocrit 41.1 % (37-47); Hemoglobin 13.2 g/dL (12.0-15.0); Lymphocyte # 2.29 X10^3/ul (0.83-4.51); Lymphocyte % 34.6 % (19-41); Mean Corp Hgb Conc 32.1 g/dL (32-36); Mean Corpuscular Hgb 30.5 pg (27.0-32.0); Mean Corpuscular Volume 94.9 fL (81-99); Monocyte% 10.6 % (0-10); NRBC Flagged by Analyzer 0 % (0-5); Neutrophil # 3.02 X10^3/uL (2.7-7.7); Neutrophil % 45.5 % (47-70); Platelet Count 185 K/mm3 (150-450); RBC Distribution Width CV 12.4 % (11.6-14.6); RBC Distribution Width SD 43.6 fl (35.1-43.9); Red Blood Count 4.33 M/mm3 (4.2-5.4); White Blood Count 6.6 K/mm3 (4.4-11.0)
[2023-11-01 17:58] LABS: CRP < 2.90 mg/L (0.0-3.0)
[2023-11-01 18:13] LABS: Erythrocyte Sedimentation Rate 4 mm/hr (0-30)
== END | disposition home or self-care (01) ==
PROVIDERS: PCP Family Medicine; Referring Provider Family Medicine; Visit Provider Family Medicine
DX: R10.9 Unspecified abdominal pain (principal); R14.0 Abdominal distension (gaseous); R19.5 Other fecal abnormalities
CPT/HCPCS: 36415; 74018; 85025; 85652; 86140

== ENCOUNTER 2024-05-25 17:00 | Outpatient (RCR) | payer MEDICARE, OTHER, SELFPAY ==
--- NOTE | 2024-04-26 11:49 | HP.PTEVAL_ITS ---
Patient's Visit Information Visit Information Visit Information: URIEL LEES is a 68 year old F referred to Physical Therapy by Dr. Tess Morataya DO with a diagnosis of RIGHT LUMBAR RADICILOPATHY. Date of Evaluation: 04/26/24 Physical Therapist: Shadi Mccullough PT, Cert MDT, OCS Visit Plan Frequency: 2x /Week Duration: 4 Weeks Plan: PT INTERVENTIONS POSTURAL EX'S ,LUMBAR FLEXION ,DLS ,ACYIVITY MODIFICATION AND MODALTITIES Subjective Subjective: This 68 y/o female presents to physical therapy with right lumbar radiculopathy. Patient has symptoms in right leg for about 1 year . Symptoms where insidious onset . Patient seen DR x-rays showed DDD . Patient was provided with meloxicam. Patient located right lumbar buttuck lateral hip lateral lowe leg. Pain described as ache. Aggravating sitting ,bending ,lifting standing. Alleviating factors rest walking. Coughing/sneezing -, Sleeping affects pain. C/O paresthesia/tingling in leg. No trauma or injury . Patient pain affects QOL /function and housework tasks. Patient goals to decrease pain. SOCIAL: VOCATION: retired Pain Right: Pain Intensity (Out of 10): 3 Pain Intensity Range: 10 Right Back: Pain Intensity (Out of 10): 7 Pain Intensity Range: 10 Objective Objective: POSTURE: mild forward posture GAIT: reciprocal pattern PALAPTION: LS region NEURO: denies paresthesia/tingling ,reflexes L3-4,L4-5,L5-S 2/3 SYMMTRIES: symmetrical MMT: quads/hams 4/5 ,hip flexion 4/5 ,ankle 5/5 FLEXABILITY: hamstrings WFL Special Tests L/S Slump test left side: Negative L/S Slump test right side: Negative L/S Left Straight Leg Raise: Negative L/S Right Straight Leg Raise: Negative Lumbar Standing: Flexion - Mechanical Response: No effect Lumbar Standing: Flexion - Symptoms During Testing: Increases Lumbar Standing: Flexion - Symptoms After Testing: No worse Comments:: BCAK Lumbar Standing: Extension - Symptoms During Testing: Increases Lumbar Standing: Extension - Symptoms After Testing: No worse Comments:: BACK Lumbar Standing: Right Side Glides - Mechanical Response: No effect Lumbar Standing: Right Side [place] - Symptoms During Testing: No effect Lumbar Standing: Left Side [place] - Mechanical Response: No effect Lumbar Standing: Left Side [place] - Symptoms During Testing: No effect Lumbar Standing: Left Side [place] - Symptoms After Testing: No effect Lumbar Lying: Flexion - Mechanical Response: No effect Lumbar Lying: Flexion - Symptoms During Testing: Decreases Lumbar Lying: Flexion - Symptoms After Testing: Better Lumbar Lying: Extension - Mechanical Response: No effect Lumbar Lying: Extension - Symptoms During Testing: Increases Lumbar Lying: Extension - Symptoms After Testing: No worse Comments:: BUTTUCK Balance/Special Test Scores Oswestry Low Back Score: 24 Goals Goal 1:: Patient to be I with HEP. Goal Time Frame: 4-6 Weeks Goal 2:: Patient to back oswestry by 5 points or > to improve function and QOL Goal Time Frame: 4-6 Weeks Goal 3:: Patient to improve lumbar ROM for function of recovery for ADL's and picking up laundry basket . Goal Time Frame: 4-6 Weeks Goal 4:: Patient to demonstrate 50% improvement with less pain and improved function . Goal Time Frame: 4-6 Weeks Goal 5:: Patient be able to stand with less radicular symptoms in leg to wash dishes and housework tasks Goal Time Frame: 4-6 Weeks Rehabilitation Potential Physical Therapy Diagnosis: This patient has lumbar pain with radicular symptoms in leg right with possible foraminal stenosis vs disc with pain increased with positioning and motion testing affects ADLS when standing and sitting thus benefit from skilled PT Rehabilitation Potential: Good Anticipated Interventions Patient/Client Instruction: Educate patient on: Condition and Plan of Care For the Purpose of:: To decrease pain, To increase ROM, To increase tolerance to activity/condition/position, To improve ability of physical actions for home/community/work/leisure, To improve health of tissue, To decrease soft tissue restriction, To increase flexibility/ROM and To improve tolerance to ADL's Therapeutic Exercise to Include: Strength training, Postural training, Flexibilty training and Dynamic Lumbar Stabilization For the Purpose of:: To decrease pain, To increase ROM, To improve muscle performance and motor function, To increase tolerance to activity/condition/position, To improve ability of physical actions for home/community/work/leisure, To improve health of tissue, To decrease soft tissue restriction, To increase flexibility/ROM and To prevent re-injury TENS: Yes IF ES: Yes Cryotherapy (ice pack, ice massage): Yes Thermo therapy (hot pack): Yes Ultrasound (thermal/non thermal): Yes For the Purpose of:: To decrease pain, To improve nutrient delivery to tissue, To increase oxygenation perfusion, To improve health of tissue and To decrease soft tissue restriction Text: Thank you for the opportunity to evaluate your patient. For Medicare and Medicare HMO plans, please review the plan of care and approve it. It will need to be FAXED BACK to us at [phone] for Medicare purposes. For Medicare only, by signing this I certify the plan of care. Please let me know if there are questions or concerns regarding this plan of care. Physician Reece deng: Date:
--- NOTE | 2024-05-25 17:28 | HP.PTDCSUM ---
Discharge Summary D/C summary: It has been my pleasure to treat URIEL LEES referred by Dr. Tess Morataya DO, with the diagnosis of RIGHT LUMBAR RADICILOPATHY for a total of 10 visit(s). Discharge Date: 05/25/24 Please see the following information for a summary of their discharge status. Subjective Subjective: Doing well no pain. Gardening is some problem bending but stretches Able to to do these activities learning to alleviating pain Pain Right: Pain Intensity (Out of 10): 1 Right Back: Pain Intensity (Out of 10): 1 Overall Improvement % Improvement: 90 Objective Objective/Function: POSTURE: mild forward posture GAIT: reciprocal pattern PALAPTION: LS region NEURO: denies paresthesia/tingling ,reflexes L3-4,L4-5,L5-S 2/3 SYMMTRIES: symmetrical MMT: quads/hams 4/5 ,hip flexion 4/5 ,ankle 5/5 FLEXABILITY: hamstrings WFL Goals Goal 1:: Patient to be I with HEP. Goal Progress: Goal Met Goal 2:: Patient to back oswestry by 5 points or > to improve function and QOL Goal Progress: Goal Met Goal 3:: Patient to improve lumbar ROM for function of recovery for ADL's and picking up laundry basket . Goal Progress: Goal Met Goal 4:: Patient to demonstrate 50% improvement with less pain and improved function . Goal Progress: Goal Met Goal 5:: Patient be able to stand with less radicular symptoms in leg to wash dishes and housework tasks Goal Progress: Goal Met Plan Plan: D/C D/C Information Discharge Comments: HEP d/c sentence: If there are questions or concerns regarding this patient's physical therapy, please feel free to call me at [phone]. Thank you for the referral of this patient. Sincerely, Shadi Mccullough, PT, Cert MDT, OCS Balance/Gait/Functional tests Balance/Special Test Scores Oswestry Low Back Score: 2 Improvement % Improvement: 90
== END 2024-05-25 19:00 | disposition home or self-care (01) ==
LOC: PT 17:00
PROVIDERS: PCP Family Medicine; Referring Provider Family Medicine; Visit Provider Family Medicine
DX: M54.16 Radiculopathy, lumbar region (principal)
CPT/HCPCS: 97110; 97162; 97530

== ENCOUNTER → 2024-05-29 | Outpatient (CLI) | payer MEDICARE, OTHER, SELFPAY ==
--- NOTE | 2024-05-29 07:55 | BI_ITS ---
MAMMOGRAPHY - BILATERAL SCREENING REASON FOR EXAM: Female, 68 years old. Routine annual screening examination. PERTINENT HISTORY: Mother with breast cancer. TECHNIQUE: Digital bilateral breast kelsey (3D mammographic acquisition) in the CC and MLO projections. 2-D mediolateral oblique (MLO) and craniocaudad (CC) views of both breasts were obtained. CAD: Full Field Digital Mammography with Computer Added Detection was performed. COMPARISON: Comparison is made with prior study dated May 26, 2023 and May 25, 2022. FINDINGS: Breast Composition: There are scattered areas of fibroglandular density. There are no dominant masses or suspicious calcifications. No other significant abnormalities are identified. There has been no significant change since the prior study. BI/SCRN MAMM (CAD)W/KELSEY BILAT IMPRESSION: Stable bilateral screening mammogram. Yearly follow-up mammogram recommended. (A) ASSESSMENT CATEGORY: BIRADS Category 1: Negative. A letter regarding these results will be sent to the patient by the facility within 30 days. Approximately 10% of breast cancers are not detected by mammography. A normal mammogram should not delay biopsy of a clinically suspicious abnormality. [id number] Electronically Signed: Shahriar Dutta MD at 9:29 EDT ,
== END | disposition home or self-care (01) ==
LOC: OPBI 07:55
PROVIDERS: PCP Family Medicine; Referring Provider Nurse Practitioner Women's Health; Visit Provider Nurse Practitioner Women's Health
DX: Z12.31 Encounter for screening mammogram for malignant neoplasm of breast (principal)
CPT/HCPCS: 77063; 77067

== ENCOUNTER → 2024-08-08 | Outpatient (CLI) | payer MEDICARE, OTHER, SELFPAY ==
--- NOTE | 2024-08-08 16:01 | RAD_ITS ---
INDICATION: Other specified joint disorders, right shoulder EXAMINATION/TECHNIQUE: X-RAY - XR Sternum Min 2 Views COMPARISON: No relevant prior comparison study available FINDINGS: SOFT TISSUES: No soft tissue swelling or gas. No radiopaque foreign body. BONES: No fracture or subluxation. No sclerotic or destructive changes observed. RAD/Sternum min 2 Views IMPRESSION: Unremarkable appearance of the sternum, with limited visualization on radiographs. Electronically Signed: Jorge Padilla MD at 23:52 EDT ,
--- NOTE | 2024-08-08 16:02 | RAD_ITS ---
STUDY: X-RAY - RIGHT CLAVICLE REASON FOR EXAM: Female, 69 years old. Other specified joint disorders, right shoulder TECHNIQUE: 2 view(s) of the right clavicle. COMPARISON: Prior study dated: Chest radiograph 07/10/22 FINDINGS: No fracture. The acromioclavicular joint is aligned with moderate hypertrophic degenerative change. Normal visualized sternoclavicular articulation. The glenohumeral joint is aligned. Normal visualized pulmonary apex. RAD/Clavicle IMPRESSION: No fracture. 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 Electronically Signed: Jorge Padilla MD at 23:50 EDT ,
--- NOTE | 2024-08-08 16:02 | RAD_ITS ---
STUDY: X-RAY - LEFT CLAVICLE REASON FOR EXAM: Female, 69 years old. Other specified joint disorders TECHNIQUE: 2 view(s) of the left clavicle. COMPARISON: Prior study dated: Chest radiograph 07/10/22 FINDINGS: There is no fracture. The acromioclavicular joint is aligned with moderate hypertrophic degenerative changes. Normal visualized sternoclavicular articulation. The glenohumeral joint is aligned. Normal visualized pulmonary apex. RAD/Clavicle IMPRESSION: No acute osseous abnormality. Moderate degenerative change of the acromioclavicular joint. Electronically Signed: Jroge Padilla MD at 23:51 EDT ,
== END | disposition home or self-care (01) ==
LOC: MTRAD 15:59
PROVIDERS: PCP Family Medicine; Referring Provider Nurse Practitioner Family; Visit Provider Nurse Practitioner Family
DX: M25.811 Other specified joint disorders, right shoulder (principal)
CPT/HCPCS: 71120; 73000

== ENCOUNTER → 2025-01-17 | Outpatient (CLI) | payer MEDICARE, OTHER, SELFPAY ==
[2025-01-17 10:28] LABS: Absolute Lymphocyte Count 1.58 X10^3/uL (0.83-4.51); Absolute Neutrophil Count 2.2 X10^3/uL (2.0-7.7); Basophil# 0.05 X10^3/uL; Basophil% 1.1 % (0-1); Eosinophil# 0.23 X10^3/uL; Hematocrit 39.8 % (37-47); Hemoglobin 13.2 g/dL (12.0-15.0); Lymphocyte # 1.58 X10^3/ul (0.83-4.51); Lymphocyte % 34.2 % (19-41); Mean Corp Hgb Conc 33.2 g/dL (32-36); Mean Corpuscular Hgb 31.2 pg (27.0-32.0); Mean Corpuscular Volume 94.1 fL (81-99); Mean Platelet Vol. 9.8 fl (6.2-12.0); Monocyte# 0.54 X10^3/uL; Monocyte% 11.7 % (0-10); NRBC Flagged by Analyzer 0 % (0-5); Neutrophil # 2.21 X10^3/uL (2.7-7.7); Neutrophil % 47.8 % (47-70); Platelet Count 208 K/mm3 (150-450); RBC Distribution Width CV 12.6 % (11.6-14.6); RBC Distribution Width SD 43.5 fl (35.1-43.9); Red Blood Count 4.23 M/mm3 (4.2-5.4); White Blood Count 4.6 K/mm3 (4.4-11.0)
[2025-01-17 10:43] LABS: Hemoglobin A1c 7.2 % (<=5.6)
[2025-01-17 11:57] LABS: Microalbumin,Random Urine < 12.0 mg/L (NO RANGE EST.); Microalbumin:Creatinine Ratio UNABLE TO CALCULATE mg/g CRE
[2025-01-17 14:44] LABS: ALB/GLOB Ratio 1.7 RATIO (0.9-2.4); AST(SGOT) 23 U/L (<=31); Alanine Aminotransfer ALT/SGPT 17 U/L (<=34); Albumin, Serum 4.4 g/dL (3.4-4.8); Alkaline Phosphatase 88 U/L (35-104); Anion Gap 11 (5-15); BUN 12 mg/dL (4-19); BUN/Creat Ratio 20.1 RATIO (10-20); Calcium,Total 9.7 mg/dL (7.6-11.0); Carbon Dioxide 26.3 mmol/L (21.0-32.0); Chloride 101 mmol/L (98-108); Cholesterol 124 mg/dL (<=200); Creatinine, Serum 0.58 mg/dL (0.70-1.20); EST Glomerular Filtration Rate 98 (>60); Globulin 2.5 g/dL (2.2-4.2); Glucose 158 mg/dL (70-99); High Density Lipoprotein 71 mg/dL; Low Density Lipoprotein Calc. 36 mg/dL; Potassium 4.4 mmol/L (3.3-5.1); Protein, Total 6.9 g/dL (5.9-8.4); Sodium Level 138 mmol/L (133-145); Total Bilirubin 0.67 mg/dL (0.00-1.30); Triglycerides 88 mg/dL; Very Low Density Lipoprotein 18 mg/dL (5-40); cholesterol:hdl ratio screen 1.76
== END | disposition home or self-care (01) ==
LOC: MTLAB 07:35
PROVIDERS: PCP Family Medicine; Referring Provider Family Medicine; Visit Provider Family Medicine
DX: E11.9 Type 2 diabetes mellitus without complications (principal); I10 Essential (primary) hypertension
CPT/HCPCS: 36415; 80053; 80061; 82043; 82570; 83036; 85025

== ENCOUNTER → 2025-06-05 | Outpatient (CLI) | payer MEDICARE, OTHER, SELFPAY ==
--- NOTE | 2025-06-05 08:15 | BI_ITS ---
EXAM: SCRN MAMM (CAD)W/KELSEY BILAT DATE: 06/05/2025 CLINICAL HISTORY: F, Age 70 y/o , SCREEN FOR BREAST CANCER Mother with breast cancer. TECHNIQUE: SCRN MAMM (CAD)W/KELSEY BILAT COMPARISON: Prior exam(s) dated May 29, 2024.. FINDINGS: TISSUE DENSITY: The breasts are heterogeneously dense, which may obscure small masses. Bilateral Breast Mammographic Findings: No significant masses, calcifications or other abnormalities are identified. No suspicious masses, areas of developing architectural distortion, or suspicious calcifications. There has been no significant interval change. BI/SCRN MAMM (CAD)W/KELSEY BILAT IMPRESSION: Stable examination. OVERALL FINAL ASSESSMENT BI-RADS 1: NEGATIVE. RECOMMENDATION: Routine annual follow-up in 1 Year A letter with findings and recommendations will be mailed to the patient. Reading Location: [id number]
== END | disposition home or self-care (01) ==
LOC: OPBI 08:01
PROVIDERS: PCP Family Medicine; Referring Provider Nurse Practitioner Women's Health; Visit Provider Nurse Practitioner Women's Health
DX: Z12.31 Encounter for screening mammogram for malignant neoplasm of breast (principal)
CPT/HCPCS: 77063; 77067